=== PATIENT | male | born 1935 | race Caucasian/White ===

== ENCOUNTER 2023-01-19 09:14 | Emergency (ER) | payer MEDICARE, OTHER, SELFPAY ==
[2023-01-19 09:19] VITALS: BP 160/87; PULSE 87; RESP 20; TEMP 36.4; O2SAT 99; BMI 27.4
[2023-01-19] MEDS: LIDOCAINE HCL 1% PF 50 MG/5 ML VIAL INJ (09:35)
--- NOTE | 2023-01-19 09:42 | ED.SKABFB1 ---
HPI - Skin/Abscess/Foreign Bdy General Chief complaint: Skin/Abscess/Foreign Body Stated complaint: UPPER EXTREMITY INJURY LEFT INDEX FINGER Time Seen by Provider: 01/19/23 09:17 Source: patient Mode of arrival: walk-in Limitations: no limitations History of Present Illness HPI narrative: 87-year-old male presents for a finger laceration. He actually cut his left index finger on a razor blade while he was cutting up cardboard boxes. No other injury was sustained. He is on Eliquis. There was some bleeding that was controlled with pressure. This happened just before coming into the emergency department. Related Data Home Medications Medication Instructions Recorded Confirmed apixaban 5 mg tablet (Eliquis) 5 mg PO BID 01/19/23 01/19/23 polysaccharide iron complex 150 mg 150 mg PO DAILY 01/19/23 01/19/23 iron capsule (iFerex 150) Allergies Allergy/AdvReac Type Severity Reaction Status Date / Time No Known Drug Allergies Allergy Verified 01/19/23 09:19 Review of Systems ROS Narrative A ten point review of systems is negative except as noted above. PFSH PFSH Social History Smoking status: Former smoker Exam Narrative Exam Narrative: Nurses note and vital signs reviewed and patient is not hypoxic. General: The patient appears well and in no apparent distress. Patient is resting comfortably on cart. Skin: Warm, dry, no pallor noted. There is no rash noted. Head: Normocephalic, atraumatic Eye: Normal conjunctiva, no drainage Ears, Nose, Mouth, and Throat: oral mucosa is moist. Nares patent. Cardiovascular: normal rate Respiratory: Patient is in no distress, no accessory muscle use Back: non-tender GI: nontender Musculoskeletal: left index finger has a 1.5 cm linear laceration at the PIP joint on the radial side. DIP and PIP a full range of motion. No active bleeding or foreign body. No other wound present. Neurological: A&O, normal speech Psychiatric: Cooperative Constitutional Vital Signs, click to edit/add: Last Vital Signs Temp 97.5 F L 01/19/23 09:19 Pulse 87 01/19/23 09:19 Resp 20 01/19/23 09:19 BP 160/87 H 01/19/23 09:19 Pulse Ox 99 01/19/23 09:19 O2 Del Method Room Air 01/19/23 09:19 Course Vital Signs Vital signs: Vital Signs Temperature 97.5 F L 01/19/23 09:19 Pulse Rate 87 01/19/23 09:19 Respiratory Rate 20 01/19/23 09:19 Blood Pressure 160/87 H 01/19/23 09:19 Pulse Oximetry 99 01/19/23 09:19 Oxygen Delivery Method Room Air 01/19/23 09:19 Temperature 97.5 F L 01/19/23 09:19 Pulse Rate 87 01/19/23 09:19 Respiratory Rate 20 01/19/23 09:19 Blood Pressure 160/87 H 01/19/23 09:19 Pulse Oximetry 99 01/19/23 09:19 Oxygen Delivery Method Room Air 01/19/23 09:19 MDM - Skin/Abscess/Foreign Bdy MDM Narrative Medical decision making narrative: sutures are to be removed in seven days. Tetanus status is up-to-date. Finger splint applied and application checked by me and found to be appropriate, is neurovascularly intact. Treatment diagnosis and follow-up were discussed with the patient. Differential Diagnosis Differential diagnosis: Likely other (finger laceration) Discharge Plan Discharge Chief Complaint: Skin/Abscess/Foreign Body Clinical Impression: Finger laceration Patient Disposition: Home, Self-Care Time of Disposition Decision: 09:41 Condition: Good Mode of Transportation: Private Vehicle Prescriptions / Home Meds: No Action polysaccharide iron complex [iFerex 150] 150 mg iron capsule 150 mg PO DAILY Eliquis 5 mg tablet 5 mg PO BID Instructions: Finger Laceration (ED) Additional Instructions: sutures to be removed in seven days. Wear splint until they are removed. Stand Alone Forms: Portal Instructions Referrals: Jaison Purvis DO [Primary Care Provider] - 1 week Procedures ED Procedure Instructions Procedures Procedures: the following procedure was performed by me. Clinical infiltration was carried out with one percent lidocaine without epinephrine resulting in complete skin anesthesia. The area was prepped with Betadine ?3 and draped sterilely. It was explored for foreign bodies and then closed with three 5-0 ethilon sutures resulting in good skin reapproximatioon and no consultations.
== END 2023-01-19 09:57 | disposition home or self-care (01) ==
PROVIDERS: Emergency Provider Emergency Medicine; PCP Internal Medicine
DX: S61.211A Laceration without foreign body of left index finger without damage to nail, initial encounter (principal); W26.9XXA Contact with unspecified sharp object(s), initial encounter; Z79.01 Long term (current) use of anticoagulants; Z79.899 Other long term (current) drug therapy; Z87.891 Personal history of nicotine dependence
CPT/HCPCS: 12001; 99284

== ENCOUNTER 2023-02-09 09:21 | Outpatient (OUT) | payer MEDICARE, OTHER, SELFPAY ==
--- NOTE | 2023-02-09 09:27 | US_ITS ---
The [address] [address] Patient Name: ELISABETH BO MRN: [id number] date: 1935 Sex: M Assigned Patient Location: US Current Patient Location: Accession/Order Number: [id number] Exam Date: 02/09/2023 09:36 Report Date: 02/09/2023 13:06 At the request of: ANNI NUNO Procedure: US scrotum EXAMINATION: US scrotum HISTORY: Scrotal Mass N50.89 COMPARISON: No relevant comparison available. TECHNIQUE: High-resolution sonographic imaging of the scrotum and contents was performed. FINDINGS: The right testicle is normal in size, contour and homogeneous echotexture measuring 4.2 x 1.7 x 1.7 cm. Normal color and Doppler flow The right epididymis is significant for 0.7 cm area of anechoic echogenicity, cyst versus spermatocele. Moderate right hydrocele. Small right varicocele. The left testicle is normal in size, contour and homogeneous echotexture measuring 3.3 x 1.7 x 2.3 cm. Normal color and Doppler flow The left epididymis is normal in appearance. Small left hydrocele. Moderate left varicocele. US/US scrotum IMPRESSION: No evidence of testicular torsion 7 mm right epididymal cyst Moderate right and small left hydroceles Small right and moderate left varicoceles Electronically authenticated by: JOYCE YAN Date: 02/09/2023 13:06
== END 2023-02-09 09:22 | disposition home or self-care (01) ==
LOC: US 09:21
PROVIDERS: PCP Internal Medicine; Visit Provider Internal Medicine
DX: N50.89 Other specified disorders of the male genital organs (principal); N43.3 Hydrocele, unspecified; I86.1 Scrotal varices; N50.3 Cyst of epididymis
CPT/HCPCS: 76870

== ENCOUNTER 2023-03-25 08:34 | Outpatient (REF) | payer MEDICARE, OTHER, SELFPAY ==
[2023-03-25 08:58] LABS: SARS-CoV-2 Ag POSITIVE (NEGATIVE)
== END 2023-03-25 08:35 | disposition home or self-care (01) ==
LOC: LAB 08:34
PROVIDERS: PCP Internal Medicine; Visit Provider Internal Medicine
DX: Z20.822 Contact with and (suspected) exposure to COVID-19 (principal)
CPT/HCPCS: 87811

== ENCOUNTER 2023-09-01 14:54 | Outpatient (OUT) | payer MEDICARE, OTHER, SELFPAY ==
--- NOTE | 2023-09-01 15:16 | ECG_ITS ---
The [facility] Test Date: 2023-09-01 Pat Name: ELISABETH BO Department: Room: - Gender: Male [employer]: : 1935 Requested By: ANNI NUNO Order Number: [id number] Reading MD: ANNI NUNO Measurements Intervals [place] Rate: 69 P: 265 OK: 169 QRS: -85 QRSD: 175 T: 90 QT: 463 QTc: 496 Interpretive Statements ELECTRONIC ATRIAL PACEMAKER ELECTRONIC VENTRICULAR PACEMAKER ABNORMAL RHYTHM ECG Compared to ECG 05/30/2021 20:40:30 No significant changes Electronically Signed On 09-02-2023 6:52:47 EDT by ANNI NUNO
--- OUTSIDE RECORDS SUMMARY | 2023-09-01 15:17 | XMS_ITS | CCD ---
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 Obstetrics Teacher Name Role Phone YANIV, DR BLACKWOOD Primary Care Unavailable ARRIETA, DR JOLIE Mazariegos Admitting Unavailable ARRIETA, DR JOLIE Mazariegos Attending Unavailable ARRIETA, DR JOLIE Mazariegos Consulting Unavailable Jones, Manpreet Consulting Unavailable BALL, DR BLACKWOOD Primary Care Unavailable BALL, DR BLACKWOOD Admitting Unavailable BALL, DR BLACKWOOD Attending Unavailable BALL, DR BLACKWOOD Consulting Unavailable BALL, DR BLACKWOOD Primary Care Unavailable BALL, DR BLACKWOOD Admitting Unavailable BALL, DR BLACKWOOD Attending Unavailable BALL, DR BLACKWOOD Consulting Unavailable BALL, DR BLACKWOOD Admitting Unavailable BALL, DR BLACKWOOD Attending Unavailable BALL, DR BLACKWOOD Consulting Unavailable BALL, DR BLACKWOOD Primary Care Unavailable BALL, DR BLACKWOOD Primary Care Unavailable BALL, DR BLACKWOOD Admitting Unavailable BALL, DR BLACKWOOD Attending Unavailable BALL, DR BLACKWOOD Consulting Unavailable REQUEST, DR ESTRADA LISTED Consulting Unavaila ble BALL, DR BLACKWOOD Primary Care Unavailable REQUEST, DR ESTRADA LISTED Admitting Unavaila ble REQUEST, DR ESTRADA LISTED Attending Unavaila ble AMY MCCOLLUM Consulting Unavailable REQUEST, DR ESTRADA LISTED Admitting Unavaila ble BALL, DR BLACKWOOD Primary Care Unavailable REQUEST, DR ESTRADA LISTED Attending Unavaila ble REQUEST, DR ESTRADA LISTED Consulting Unavaila ble Ball, Jaison Unavailable STACEY JACOBS Attending Unavailable STACEY JACOBS Attending Unavailable Allergies Allergy Classification Reported Allergen(s) Allergy Type Date of Onset Reaction(s) Facility (1 source) dronedarone Drug Allergy 01-15-20 13 [facility] (2 sources) Morphine Drug Allergy 01-15-20 13 Vomiting [facility] (2 sources) Penicillins Drug allergy (disorder) 01-15-20 13 Hives [facility] (1 source) Sulfonamides (Antibiotic) Drug allergy (disorder) 01-15-20 13 [facility] (8 sources) Ciprofloxacin Drug Allergy 09-19-19 15 Unknown, Unknown Reaction [facility] (8 sources) dronedarone Drug Allergy 08-02-19 24 Unknown, Gastrointestinal Upset [facility] (6 sources) Morphine Drug Allergy Unknown [place] Other (3 sources) Penicillin Drug Allergy Unknown [place] Other (1 source) Morphine Drug Allergy Unknown [place] Other (4 sources) Substance with penicillin structure and antibacterial mechanism of action (substance) Drug allergy 09-19-19 15 Unknown [place] Other (4 sources) Substance with sulfonamide structure and antibacterial mechanism of action (substance) Drug allergy 09-19-19 15 Unknown [place] Other (1 source) Sulfonamides (Antibiotic) Allergy to substance 08-02-19 Gastrointestinal Upset [facility] Medications Current Medications Medication Drug Class(es) Dates Sig (Normalized) Sig (Original) apixaban 5 mg oral tablet (9 sources) Factor Xa Inhibitor Start: 08-02-2023 take 5 mg by mouth once daily Apixaban Active 5 MG PO Daily August 02, 2023 12:00am Start: 04-01-2020 End: 04-02-2020 take 1 tablet by mouth twice daily Apixaban (Eliquis) 5 mg Tablet Discontinued 5 MG PO Twice daily April 01, 2020 1:00am April 02, 2020 11:56am Eliquis 5 MG Ora lly Active atorvastatin 10 mg oral tablet (8 sources) HMG-CoA Reductase Inhibitor Start: 04-01-2020 take 10 mg by mouth once daily Atorvastatin Active 10 MG PO Daily April 01, 2020 1:00am 24 hr dilTIAZem hydrochloride 180 mg extended release oral capsule (10 sources) Calcium Channel Hafsa Start: 04-02-2020 End: 08-02-2023 take 180 mg by mouth once daily Diltiazem Hcl Active 180 MG PO Daily August 02, 2023 12:00am Start: 04-01-2020 End: 04-02-2020 take 1 capsule by mouth once daily Diltiazem Hcl (Dilt-Xr) 120 mg Capsule,Ext.Rel 24h Degradable Discontinued 120 MG PO Daily April 01, 2020 1:00am April 02, 2020 11:56am doxycycline hyclate 100 mg oral capsule (1 source) Tetracycline-class Drug Start: 05-18-2023 take 1 capsule by mouth every twelve hours Doxycycline Hyclate 100 MG 1 capsule Orally Twice a day for 5 days May, Active flecainide acetate 100 mg oral tablet (8 sources) Antiarrhythmic Start: 08-02-2023 take 50 mg by mouth every twelve hours Flecainide Active 50 MG PO Every 12 hours August 02, 2023 12:00am take 0.5 tablet by m outh every twelve hours Flecainide Acetate 100 MG 0.5 tablet Ora lly every 12 hrs Active gramicidin 0.025 mg/ml / neomycin 1.75 mg/ml / polymyxin b 10260 unt/ml ophthalmic solution (1 source) Aminoglycoside Antibacterial, Polymyxin-class Antibacterial Start: 05-18-2023 Xblgskyd-Zmrvcnqds-Mwszrvich n [id number] 1 drop into affected eye Ophthalmic every 4 hrs, while awake for 7 days May, Active hydroCHLOROthiazide 12.5 mg / lisinopril 10 mg oral tablet (10 sources) Thiazide Diuretic, Angiotensin Converting Enzyme Inhibitor Start: 08-02-2023 take 1 tablet by mouth once daily Lisinopril-Hydrochlorothiazide Active 1 TAB PO Daily August 02, 2023 12:00am FreeTextSi tablet Orally Once a day; Note: Source Status: Taking; Provider: Yaniv Blackwood ( ) Start: 04-01-2020 End: 08-02-2023 take 1 tablet by mouth once daily Lisinopril-Hydrochlorothiazide Discontin ued 1 TAB PO Daily April 01, 2020 1:00am August 02, 2023 8:16am take 1 tablet by wei th every twenty-four hours Lisinopril-hydroCHLOROthiazide 10-12.5 M G 1 tablet Orally Once a day Active ipratropium bromide 0.042 mg/actuat metered dose nasal spray (8 sources) Anticholinergic Start: 04-01-2020 Ipratropium Br omide Active 42 MCG INTRANASAL Twice daily April 01, 2020 1:00am Ipratropium Brom silvana Active omeprazole 20 mg delayed release oral capsule (15 sources) Proton Pump Inhibitor Start: 04-01-2020 take 20 mg by mouth once daily Omeprazole Active 20 MG PO Daily April 01, 2020 1:00am polysaccharide iron complex 150 mg oral capsule (8 sources) Start: 08-02-2023 Polysaccharide Iron Complex (Iferex 150) 150 mg iron capsule Active 150 MG PO Daily August 02, 2023 12:00am take 1 capsule by mouth every ot her day IFerex 150 150 MG TAKE 1 CAPSULE BY MOUTH EVERY OTHER DAY for 30 Active take 1 capsule by [facility] every twenty-four hours Ferrex 150 150 MG 1 capsule Orally Once a day Active sulfamethoxazole 800 mg / trimethoprim 160 mg oral tablet (1 source) Dihydrofolate Reductase Inhibitor Antibacterial, Sulfonamide Antimicrobial Start: 11-03-2022 take 1 tablet by mouth every twelve hours Bactrim DS 800-160 MG 1 tablet Orally Twice a day for 10 days Oct, Active Completed/Discontinued Medications Medication Drug Class(es) Dates Sig (Normalized) Sig (Original) Aloe Vera (1 source) Start: 04-01-2020 End: 08-02-2023 take 25 mg by mouth once daily Aloe Vera Discontinued 25 MG PO Daily April 01, 2020 1:00am August 02, 2023 8:15am amiodarone hydrochloride 200 mg oral tablet (1 source) Antiarrhythmic Start: 04-02-2020 End: 08-02-2023 take 200 mg by mouth twice daily Amiodarone Discontinued 200 MG PO Twice daily 60 30 April 02, 2020 1:00am August 02, 2023 8:15am ascorbic acid 500 mg oral tablet (1 source) Vitamin C Start: 04-01-2020 End: 08-02-2023 take 1 tablet by mouth once daily Ascorbic Acid (Vitamin C) (Vitamin C) 500 mg Tablet Discontinued 500 MG PO Daily April 01, 2020 1:00am August 02, 2023 8:16am Bilberry (1 source) Start: 04-01-2020 End: 08-02-2023 take 100 mg by mouth twice daily Bilberry Discontinued 100 MG PO Twice daily April 01, 2020 1:00am August 02, 2023 8:16am Garlic (1 source) Non-Standardized Food Allergenic Extract Start: 04-01-2020 End: 08-02-2023 take 1000 mg by mouth after mealtime Garlic Discontinued 1000 MG PO after meals April 01, 2020 1:00am August 02, 2023 8:16am 24 hr metoprolol succinate 50 mg extended release oral tablet (7 sources) beta-Adrenergic Hafsa take 1 tablet by mouth every twenty-four hours Metoprolol Succinate ER 50 MG 1 tablet Orally Once a day Not-Taking/PRN Problems Active Problems Problem Classification Problem Date Documented Da te Episodic/Chronic Abdominal pain (11 sources) Left lower quadrant pain; 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: [Epigastric pain] Onset: 05-30-2021 Episodic Calculus of urinary tract (15 sources) Calculus of kidney; 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: [Personal history of urinary calculi] Onset: 06-02-2021 Episodic Cardiac dysrhythmias (15 sources) Paroxysmal atrial fibrillation; 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: [Paroxysmal atrial fibrillation] Onset: 06-02-2021 Chronic Conduction disorders (1 source) Cardiac pacemaker in situ; 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: [Presence of cardiac pacemaker] 08-02-2023 Chronic Congestive heart failure; nonhypertensive (2 sources) Heart failure; 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: [Chronic diastolic (congestive) heart failure] 07-31-2023 Chronic Coronary atherosclerosis and other heart disease (1 source) Preinfarction syndrome; 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: [Unstable angina] 04-20-2023 Chronic Deficiency and other anemia (3 sources) Iron deficiency anemia secondary to blood loss (chronic); 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: [IRON DEFIC ANEMIA SEC BLD LOSS CHRN] Onset: 10-30-2020 Chronic Deficiency and other anemia (7 sources) Anemia due to chronic blood loss; 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: [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 Deficiency and other anemia (5 sources) Anemia, unspecified; 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: [ANEMIA UNSPECIFIED] Onset: 04-16-2021 Episodic Deficiency and other anemia (6 sources) Anemia; 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: [Anemia, unspecified] Episodic Disorders of lipid metabolism (13 sources) Pure hypercholesterolemia , unspecified; 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: [Familial hypercholesterolemia ] Onset: 10-30-2020 Chronic Esophageal disorders (4 sources) Gastro-esophageal reflux disease with esophagitis; 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: [Gastroesophageal reflux disease with esophagitis without hemorrhage] Chronic Essential hypertension (16 sources) Essential (primary) hypertension; 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: [Essential hypertension] Onset: 10-23-2020 Chronic Hyperplasia of prostate (9 sources) Lower urinary tract symptoms due to benign prostatic hypertrophy; 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: [Benign prostatic hyperplasia with lower urinary tract symptoms] Chronic Inflammation; infection of eye (except that caused by tuberculosis or sexually transmitteddisease) (8 sources) Allergic dermatitis of right eye, unspecified eyelid; 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: [Contact or allergic eyelid dermatitis] Episodic Inflammatory conditions of male genital organs (1 source) Epididymo-orchitis Episodic Nonspecific chest pain (1 source) Chest pain; 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: [Chest pain, unspecified] 04-20-2023 Episodic Occlusion or stenosis of precerebral arteries (2 sources) Carotid artery stenosis; 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: [Occlusion and stenosis of unspecified carotid artery] 07-31-2023 Chronic Other aftercare (1 source) Other aquatic centre manager (current) drug therapy; 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: [OTH HALF-WAY CURRENT DRUG THERAPY] Onset: 06-02-2021 Episodic Other circulatory disease (6 sources) Cardiovascular symptoms; 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: [Other specified symptoms and signs involving the circulatory and respiratory systems] Episodic Other circulatory disease (3 sources) Other specified symptoms and signs involving the circulatory and respiratory systems; 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: [Bilateral carotid bruits] Episodic Other connective tissue disease (7 sources) History of total knee arthroplasty; 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: [Presence of left artificial knee joint] Chronic Other connective tissue disease (1 source) Trigger finger, right ring finger Episodic Other diseases of veins and lymphatics (7 sources) Peripheral venous insufficiency; 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: [Venous insufficiency (chronic) (peripheral)] Episodic Other eye disorders (7 sources) Tear film insufficiency; 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: [Dry eye syndrome of bilateral lacrimal glands] Episodic Other male genital disorders (1 source) Other specified disorders of the male genital organs Episodic [place]ry-; endo-; and myocarditis; cardiomyopathy (except that caused by tuberculosis or sexually transmitted disease) (2 sources) Cardiomyopathy; 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: [Other cardiomyopathies] 07-31-2023 Chronic Screening and history of mental health and substance abuse codes (1 source) Personal history of nicotine dependence; 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: [PERSONAL HISTORY OF NICOTINE DEPEND] Onset: 06-02-2021 Episodic Skin and subcutaneous tissue infections (7 sources) Cellulitis of finger of left hand; 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: [Cellulitis of left finger] Episodic Spondylosis; intervertebral disc disorders; other back problems (9 sources) Cervical spondylosis; 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: [Spondylosis without myelopathy or radiculopathy, cervical region] 07-31-2023 Chronic Sprains and strains (1 source) Strain of muscle, fascia and tendon of other parts of biceps, left arm, initial encounter Episodic Past or Other Problems Problem Classification Problem Date Documented Da te Episodic/Chronic Esophageal disorders (5 sources) Esophageal disorders; 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: [Gastroesophageal reflux disease with esophagitis without hemorrhage] Unclassified (7 sources) Acute bilateral low back pain without sciatica; 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: [Acute bilateral low back pain without sciatica] Viral infection (1 source) COVID-19 Results Test Name Value Interpretation Reference Range Facil ity CBC W MANUAL DIFFon 05-30-19 ATYPICAL LYMPH # Normal [facility] Comment on above: Performed By: #### C BCMAN #### [facility] [address] [place] [address] Dr. Aubrie Sadler ATYPICAL LYMPH % Normal [facility] Comment on above: Performed By: #### C BCMAN #### [facility] [address] [place] [address] Dr. Aubrie Sadler BAND # 0.2 103/ul Normal 0.0-0.3 [facility] Comment on above: Performed By: #### C BCMAN #### [facility] [address] [place] [address] Dr. Aubrie Sadler BAND % 2 % Normal 0-5 [facility] Comment on above: Performed By: #### C BCMAN #### [facility] [address] [place] [address] Dr. Aubrie Sadler BASOM # 0.00 103/ul Normal 0.00-0.10 [facility] Comment on above: Performed By: #### C BCMAN #### [facility] [address] [address] [address] Aubrie Sadler BASOM % 0.0 % Critically low 0.2-2.0 [facility] Comment on above: Performed By: #### C BCMAN #### [facility] [address] [place] [address] Dr. Aubrie Sadler BLAST # Normal [facility] Comment on above: Performed By: #### C BCMAN #### [facility] [address] [place] [address] Dr. Aubrie Sadler BLAST % Normal [facility] Comment on above: Performed By: #### C BCMAN #### [facility] [address] [address] [address] Aubrie Sadler CORRECTED WBC Normal 4.0-11.0 [facility] Comment on above: Performed By: #### C ABIGAIL #### [facility] [address] [address] [address] Aubrie Sadler EOS # 0.00 103/ul Normal 0.00-0.70 [facility] Comment on above: Performed By: #### C ABIGAIL #### [facility] [address] [address] [address] Aubrie Sadler EOS% 0.0 % Critically low 0.9-7.0 [facility] Comment on above: Performed By: #### C ABIGAIL #### [facility] [address] [place] [address] Dr. Aubrie Sadler HCT 33.9 % Critically low 42.0-54.0 [facility] Comment on above: Performed By: #### C ABIGAIL #### [facility] [address] [place] [address] Dr. Aubrie Sadler HGB 11.2 g/dl Critically low 14.0-18.0 [facility] Comment on above: Performed By: #### C ABIGAIL #### [facility] [address] [place] [address] Dr. Aubrie Sadler LYMPHM # 0.61 103/ul Critically low 1.20-3.80 [facility] Comment on above: Performed By: #### C ABIGAIL #### [facility] [address] [address] [address] Aubrie Sadler LYMPHM% 7.0 % Critically low 20.5-60.0 [facility] Comment on above: Performed By: #### C ABIGAIL #### [facility] [address] [place] [address] Dr. Aubrie Sadler MCH 30.3 pg Normal 25.9-34.0 [facility] Comment on above: Performed By: #### C ABIGAIL #### [facility] [address] [address] [address] Aubrie Sadler MCHC 33.0 g/dl Normal 29.9-35.2 [facility] Comment on above: Performed By: #### C BCMAN #### [facility] [address] [place] [address] Dr. Aubrie Sadler MCV 91.6 fL Normal 80.0-94.0 [facility] Comment on above: Performed By: #### C BCMAN #### [facility] [address] [place] [address] Dr. Aubrie Sadler METAMYELOCYTE # Normal [facility] Comment on above: Performed By: #### C BCMAN #### [facility] [address] [place] [address] Dr. Aubrie Sadler METAMYELOCYTE % Normal [facility] Comment on above: Performed By: #### C BCBRYON #### [facility] [address] [place] [address] Dr. Aubrie Sadler MONOM# 0.52 103/ul Normal 0.30-0.80 [facility] Comment on above: Performed By: #### C BCMAN #### [facility] [address] [place] [address] Dr. Aubrie Sadler MONOM% 6.0 % Normal 1.7-12.0 [facility] Comment on above: Performed By: #### C ABIGAIL #### [facility] [address] [place] [address] Dr. Aubrie Sadler MPV 10.0 fL Normal 9.5-13.5 [facility] Comment on above: Performed By: #### C BCBRYON #### [facility] [address] [place] [address] Dr. Aubrie Sadler MYELOCYTE # Normal [facility] Comment on above: Performed By: #### C BCBRYON #### [facility] [address] [place] [address] Dr. Aubrie Sadler MYELOCYTE % Normal [facility] Comment on above: Performed By: #### C BCBRYON #### [facility] [address] [place] [address] Dr. Aubrie Sadler NRBC Normal [facility] Comment on above: Performed By: #### C BCBRYON #### [facility] [address] [place], [place] [address] Dr. Aubrie Sadler PLT 217 103/ul Normal 150-450 [facility] Comment on above: Performed By: #### C ABIGAIL #### [facility] [id number] Aubrie Sadler RBC 3.70 106/ul Critically low 4.70-6.10 [facility] Comment on above: Performed By: #### C ABIGAIL #### [facility] [address] [address] [address] Aubrie Sadler RDW 13.7 % Normal 11.0-15.0 [facility] Comment on above: Performed By: #### Rica HAYES #### [facility] [address] [address] [address] Aubrie Sadler SEG # 7.39 103/ul Critically high 1.40-6.50 [facility] Comment on above: Performed By: #### Rica HAYES #### [facility] [address] [address] [address] Aubrie Sadler SEG % 85.0 % Critically high 43.0-75.0 [facility] Comment on above: Performed By: #### C ABIGAIL #### [facility] [address] [address] [address] Aubrie Sadler WBC 8.7 103/ul Normal 4.0-11.0 [facility] Comment on above: Performed By: #### Rica HAYES #### [facility] [address] [place] [address] ABD/PELVIS WO CONon 05-30 CT ABD/PELVIS WO CON STUDY: CT abdomen pelvis noncontrast TECHNIQUE: Axial slices were obtained from the diaphragmatic domes through the pelvis without intravenous contrast. Coronal and sagittal reformats were provided. Dose reduction techniques were achieved by using automated exposure control and/or adjustment of mA and/or kV according to patient size and/or use of iterative reconstruction technique. COMPARISON: CT abdomen pelvis 10/24/2019 HISTORY: CALCULUS OF KIDNEY FINDINGS: Chest: The imaged lung bases are clear. No pleural or pericardial effusion. There is calcific coronary artery disease. Cardiac pacer electrodes are partially imaged in the heart. Liver: Normal contour and attenuation. Biliary: Status post cholecystectomy. Adrenals: Normal. Pancreas: No ductal dilatation or peripancreatic stranding. Spleen: Normal size. Renal: No hydronephrosis. 3 mm nonobstructing collecting system calcifications in the left mid pole and inferior pole. 4 cm renal cyst on the right. The ureters are normal in course and caliber. Calcifications scattered throughout the pelvis correspond to phleboliths, unchanged in number and orientation as compared to 10/24/2019. The urinary bladder is unremarkable. Hollow viscera: Normal caliber. Vascular: Scattered atheromatous vascular calcifications throughout the imaged aorta and its main branches. The IVC and portal vein demonstrate normal noncontrasted CT appearance. Mesentery/retroperit oneum: No free fluid, free air or focal stranding. No pathologically enlarged lymph nodes. Pelvic viscera: Within normal limits. MSK: Multilevel degenerative changes throughout the spine. Small fat-containing umbilical hernia. IMPRESSION: 1. Nonobstructing collecting system calcifications in the left kidney. No ureterolith. 2. Other chronic findings as above. Electronically authenticated by: MANPREET JONES Date: 2021-05-30 21:38 Normal [facility] ER URINE PROFILEon 2 Bilirubin Ql (U) Negative Normal NEGATIVE [facility] Comment on above: Performed By: #### E RUR ####[facility] [id number] [address]Dr. Aubrie Sadler Clarity (U) CLEAR Normal CLEAR [facility] Comment on above: Performed By: #### E RUR ####[facility] [id number] [address]Dr. Aubrie Sadler Color (U) YELLOW Normal YELLOW [facility] Comment on above: Performed By: #### E RUR ####[facility] [id number] [address]Dr. Aubrie HENLEYAHD A micrscopic examination will be performed if indicated. Normal [facility] Comment on above: Performed By: #### E RUR ####[facility] [id number] [address]Dr. Aubrie Sadler Glucose Ql (U) Negative Normal NEGATIVE [facility] Comment on above: Performed By: #### E RUR ####[facility] [id number] [place], [place] [address]Dr. Aubrie Sadler Hemoglobin Ql (U) Negative Normal NEGATIVE [facility] Comment on above: Performed By: #### E RUR ####[facility] [id number] [place], [place] [address]Dr. Aubrie Sadler Ketones Ql (U) TRACE Abnormal NEGATIVE [facility] Comment on above: Performed By: #### E RUR ####[facility] [address] [place], [place] [address]Dr. Aubrie Doroteo LEUKOCYTES Negative Normal NEGATIVE [facility] Comment on above: Performed By: #### E RUR ####[facility] [id number] [place], [place] [address]Dr. Aubrie Sadler Nitrite Ql (U) Negative Normal NEGATIVE [facility] Comment on above: Performed By: #### E RUR ####[facility] [id number] [address] [place], [place] [address]Dr. Aubrie Sadler pH (U) 5.0 [pH] Normal 5-9 [facility] Comment on above: Performed By: #### E RUR ####[facility] [address] [place], [place] [address]Dr. Aubrie Sadler SPEC GRAVITY 1.030 Abnormal 1.005-<=1.025 [facility] Comment on above: Performed By: #### E RUR ####[facility] [address] [place], [place] [address]Dr. Jasmyneling Doroteo UA PROTEIN Negative Normal NEGATIVE/ TRACE [facility] Comment on above: Performed By: #### E RUR ####[facility] [address] [place], [place] [address]Dr. Aubrie Sadler UR MICRO IND NOT INDICATED Normal [facility] Comment on above: Performed By: #### E RUR ####[facility] [address] [place], [place] [address]Dr. Aubrie Sadler Urobilinogen Qn (U) 0.2 {Julia'U}/dL Normal 0.2 - 1. 0 [facility] Comment on above: Performed By: #### E RUR ####[facility] [address] [address]Dr. Aubrie Sadler PROF 14(COMP METB)on 022 Albumin [Mass/Vol] 3.8 g/dL Normal 3.5-5.0 [facility] Comment on above: Performed By: #### C MP #### [facility] [address] [address] [address] Aubrie Sadler Albumin/Globulin [Mass ratio] 1.2 {ratio} Normal [facility] Comment on above: Performed By: #### C MP #### [facility] [address] [place] [address] Dr. Aubrie Sadler ALP [Catalytic activity/Vol] 73 U/L Normal 38-126 [facility] Comment on above: Performed By: #### C MP #### [facility] [address] [place] [address] Dr. Aubrie Sadler ALT [Catalytic activity/Vol] 20 U/L Critically low 21-72 [facility] Comment on above: Performed By: #### C MP #### [facility] [address] [place] [address] Dr. Aubrie Sadler Anion gap [Moles/Vol] 11.1 mmol/L Normal [facility] Comment on above: Performed By: #### C MP #### [facility] [address] [address] [address] Aubrie Sadler AST [Catalytic activity/Vol] 19 U/L Normal 17-59 [facility] Comment on above: Performed By: #### C MP #### [facility] [address] [place] [address] Dr. Aubrie Sadler Bilirubin [Mass/Vol] 1.5 mg/dL Critically high 0.2-1.3 [facility] Comment on above: Performed By: #### C MP #### [facility] [address] [place] [address] Dr. Aubrie Sadler Calcium [Mass/Vol] 8.9 mg/dL Normal 8.4-10.2 [facility] Comment on above: Performed By: #### C MP #### [facility] [address] [address] [address] Aubrie Sadler Chloride [Moles/Vol] 100 mmol/L Normal 98-107 [facility] Comment on above: Performed By: #### C MP #### [facility] [address] [address] [address] Aubrie Sadler CO2 [Moles/Vol] 28.8 mmol/L Normal 22.0-30.0 [facility] Comment on above: Performed By: #### C MP #### [facility] [address] [address] [address] Aubrie Sadler Creatinine [Mass/Vol] 1.72 mg/dL Critically high 0.66-1.25 [facility] Comment on above: Performed By: #### C MP #### [facility] [address] [address] [address] Aubrie Sadler EGFR-AF IVORIAN 46 mL/min/1.73m2 Critically low >=60 [facility] Comment on above: Performed By: #### C MP #### [facility] [address] [place] [address] Dr. Aubrie Sadler EGFR-NON AF IVORIAN 38 mL/min/1.73m2 Critically low >=60 [facility] Comment on above: Performed By: #### C MP #### [facility] [address] [address] [address] Aubrie Sadler Globulin (S) [Mass/Vol] 3.3 g/dL Normal [facility] Comment on above: Performed By: #### C MP #### [facility] [address] [address] [address] Aubrie Sadler Glucose [Mass/Vol] 125 mg/dL Critically high 74-106 [facility] Comment on above: Performed By: #### C MP #### [facility] [address] [address] [address] Aubrie Sadler Potassium [Moles/Vol] 3.9 mmol/L Normal 3.4-5.0 [facility] Comment on above: Performed By: #### C MP #### [facility] [address] [address] [address] Aubrie Sadler Protein [Mass/Vol] 7.1 g/dL Normal 6.1-8.2 [facility] Comment on above: Performed By: #### C MP #### [facility] [address] [address] [address] Aubrie Sadler Sodium [Moles/Vol] 136 mmol/L Critically low 137-145 [facility] Comment on above: Performed By: #### C MP #### [facility] [address] [place] [address] Dr. Aubrie Sadler Urea nitrogen [Mass/Vol] 27.0 mg/dL Critically high 9.0-20.0 [facility] Comment on above: Performed By: #### C MP #### [facility] [address] [place] [address] Dr. Aubrie Sadler Urea nitrogen/Creatinine [Mass ratio] 15.7 mg/mg Normal [facility] Comment on above: Performed By: #### C MP #### [facility] [address] [place] [address] Dr. Aubrie Sadler CBC AUTO DIFFon 04-16-2021 BASO # 0.0 103/ul Normal 0.0-0.1 [facility] Comment on above: Performed By: #### C BC ####[facility] [address] [address]Dr. Aubrie Sadler Basophils/100 WBC (Bld) 0.7 % Normal 0.2-2.0 [facility] Comment on above: Performed By: #### C BC ####[facility] [address] [address]Dr. Aubrie Sadler EO # 0.1 103/ul Normal 0.0-0.7 [facility] Comment on above: Performed By: #### C BC ####[facility] [address] [address]Dr. Aubrie Sadler Eosinophils/100 WBC (Bld) 2.4 % Normal 0.9-7.0 [facility] Comment on above: Performed By: #### C BC ####[facility] [address] [place], [place] [address]Dr. Aubrie Sadler Erythrocyte distribution width (RBC) [Ratio] 13.6 % Normal 11.0-15.0 [facility] Comment on above: Performed By: #### C BC ####[facility] [address] [place], [place] [address]Dr. Aubrie Sadler Hematocrit (Bld) [Volume fraction] 34.4 % Critically low 42.0-54.0 [facility] Comment on above: Performed By: #### C BC ####[facility] [address] [place], [place] [address]DrTadeo Sadler Hemoglobin (Bld) [Mass/Vol] 11.0 g/dL Critically low 14.0-18.0 [facility] Comment on above: Performed By: #### C BC ####[facility] [address] [place], [place] [address]Dr. Aubrie Sadler IG # 0.01 10e3/ul Normal 0.00-0.03 [facility] Comment on above: Performed By: #### C BC ####[facility] [address] [place], [place] [address]DrTadeo Sadler IG % 0.2 % Normal 0.0-0.5 [facility] Comment on above: Performed By: #### C BC ####[facility] [address] [place], [place] [address]DrTadeo Sadler LYMPH # 1.6 103/ul Normal 1.2-3.8 [facility] Comment on above: Performed By: #### C BC ####[facility] [address] [place], [place] [address]DrTadeo Sadler Lymphocytes/100 WBC (Bld) 29.3 % Normal 20.5-60.0 [facility] Comment on above: Performed By: #### C BC ####[facility] [address] [place], [place] [address]DrTadeo Sadler MANUAL DIFF REQ NO Normal [facility] Comment on above: Performed By: #### C BC ####[facility] [address] [id number]. Aubrie Sadler MCH (RBC) [Entitic mass] 29.9 pg Normal 25.9-34.0 [facility] Comment on above: Performed By: #### C BC ####[facility] [address] [address]DrTadeo Sadler MCHC (RBC) [Mass/Vol] 32.0 g/dL Normal 29.9-35.2 [facility] Comment on above: Performed By: #### C BC ####[facility] [address] [place], [place] [address]DrTadeo Sadler MCV (RBC) [Entitic vol] 93.5 fL Normal 80.0-94.0 [facility] Comment on above: Performed By: #### C BC ####[facility] [address] [place], [place] [address]DrTadeo Sadler MONO # 0.5 103/ul Normal 0.3-0.8 [facility] Comment on above: Performed By: #### C BC ####[facility] [address] [place], [place] [address]DrTadeo Sadler Monocytes/100 WBC (Bld) 9.5 % Normal 1.7-12.0 [facility] Comment on above: Performed By: #### C BC ####[facility] [address] [place], [place] [address]DrTadeo Sadler NEUT # 3.2 103/ul Normal 1.4-6.5 [facility] Comment on above: Performed By: #### C BC ####[facility] [address] [place], [place] [address]DrTadeo Sadler Neutrophils/100 WBC (Bld) 57.9 % Normal 43.0-75.0 [facility] Comment on above: Performed By: #### C BC ####[facility] [address] [place], [place] [address]DrTadeo Sadler Platelet mean volume (Bld) [Entitic vol] 10.0 fL Normal 9.5-13.5 [facility] Comment on above: Performed By: #### C BC ####[facility] [address] [address]Dr. Aubrie Sadler PLT 219 103/ul Normal 150-450 [facility] Comment on above: Performed By: #### C BC ####[facility] [address] [address]Dr. Aubrie Sadler RBC 3.68 106/ul Critically low 4.70-6.10 [facility] Comment on above: Performed By: #### C BC ####[facility] [address] [address]Dr. Aubrie Sadler WBC 5.5 103/ul Normal 4.0-11.0 [facility] Comment on above: Performed By: #### C BC ####[facility] [address] [address]Dr. Aubrie Sadler FERRITINon 04-16-2021 Ferritin [Mass/Vol] 32.0 ng/mL Normal 17.9-464.0 [facility] Comment on above: Performed By: #### F ERR #### [facility] [address] [place] [address] Dr. Aubrie Sadler OCC BLD IMMUNOASSAYon 2020 OCCULT BLOOD Negative Normal NEGATIVE [facility] Comment on above: Performed By: #### O FABRIZIO #### [facility] [address] [place] [address] Dr. Aubrie Sadler CBC AUTO DIFFon 01-23-2021 BASO # 0.0 103/ul Normal 0.0-0.1 [facility] Comment on above: Performed By: #### C BC #### [facility] [address] [place] [address] Dr. Aubrie Sadler Basophils/100 WBC (Bld) 0.7 % Normal 0.2-2.0 [facility] Comment on above: Performed By: #### C BC #### [facility] [address] [place] [address] Dr. Aubrie Sadler EO # 0.1 103/ul Normal 0.0-0.7 [facility] Comment on above: Performed By: #### C BC #### [facility] [address] [place] [address] Dr. Aubrie Sadler Eosinophils/100 WBC (Bld) 1.8 % Normal 0.9-7.0 [facility] Comment on above: Performed By: #### C BC #### [facility] [address] [place] [address] Dr. Aubrie Sadler Erythrocyte distribution width (RBC) [Ratio] 13.9 % Normal 11.0-15.0 [facility] Comment on above: Performed By: #### C BC #### [facility] [address] [place] [address] Dr. Aubrie Sadler Hematocrit (Bld) [Volume fraction] 34.6 % Critically low 42.0-54.0 [facility] Comment on above: Performed By: #### C BC #### [facility] [address] [place] [address] Dr. Aubrie Sadler Hemoglobin (Bld) [Mass/Vol] 11.4 g/dL Critically low 14.0-18.0 [facility] Comment on above: Performed By: #### C BC #### [facility] [address] [place] [address] Dr. Aubrie Sadler IG # 0.01 10e3/ul Normal 0.00-0.03 [facility] Comment on above: Performed By: #### C BC #### [facility] [address] [place] [address] Dr. Aubrie Sadler IG % 0.2 % Normal 0.0-0.5 [facility] Comment on above: Performed By: #### C BC #### [facility] [address] [place] [address] Dr. Aubrie Sadler LYMPH # 1.8 103/ul Normal 1.2-3.8 [facility] Comment on above: Performed By: #### C BC #### [facility] [address] [place] [address] Dr. Aubrie Sadler Lymphocytes/100 WBC (Bld) 31.4 % Normal 20.5-60.0 [facility] Comment on above: Performed By: #### C BC #### [facility] [address] [place] [address] Dr. Aubrie Sadler MANUAL DIFF REQ NO Normal [facility] Comment on above: Performed By: #### C BC #### [facility] [address] [place] [address] Dr. Aubrie Sadler MCH (RBC) [Entitic mass] 30.5 pg Normal 25.9-34.0 [facility] Comment on above: Performed By: #### C BC #### [facility] [address] [place] [address] Dr. Aubrie Sadler MCHC (RBC) [Mass/Vol] 32.9 g/dL Normal 29.9-35.2 [facility] Comment on above: Performed By: #### C BC #### [facility] [address] [place] [address] Dr. Aubrie Sadler MCV (RBC) [Entitic vol] 92.5 fL Normal 80.0-94.0 [facility] Comment on above: Performed By: #### C BC #### [facility] [address] [place] [address] Dr. Aubrie Sadler MONO # 0.6 103/ul Normal 0.3-0.8 [facility] Comment on above: Performed By: #### C BC #### [facility] [address] [place] [address] Dr. Aubrie Sadler Monocytes/100 WBC (Bld) 10.5 % Normal 1.7-12.0 [facility] Comment on above: Performed By: #### C BC #### [facility] [address] [place] [address] Dr. Aubrie Sadler NEUT # 3.1 103/ul Normal 1.4-6.5 [facility] Comment on above: Performed By: #### C BC #### [facility] [address] [place] [address] Dr. Aubrie Sadler Neutrophils/100 WBC (Bld) 55.4 % Normal 43.0-75.0 [facility] Comment on above: Performed By: #### C BC #### [facility] [address] [address] [address] Aubrie Sadler Platelet mean volume (Bld) [Entitic vol] 10.5 fL Normal 9.5-13.5 [facility] Comment on above: Performed By: #### C BC #### [facility] [address] [address] [address] Aubrie Sadler PLT 230 103/ul Normal 150-450 [facility] Comment on above: Performed By: #### C BC #### [facility] [address] [address] [address] Aubrie Sadler RBC 3.74 106/ul Critically low 4.70-6.10 [facility] Comment on above: Performed By: #### C BC #### [facility] [address] [address] [address] Aubrie Sadler WBC 5.6 103/ul Normal 4.0-11.0 [facility] Comment on above: Performed By: #### C BC #### [facility] [address] [address] [address] Aubrie Sadler FERRITINon 01-23-2021 Ferritin [Mass/Vol] 25.0 ng/mL Normal 17.9-464.0 [facility] Comment on above: Performed By: #### F OL, FETIBC, VITB12, FERR ####[facility] [address] [address]Dr. Aubrie Sadler FOLATEon 01-23-2021 FOLATE 16.70 ng/mL Normal >=2.76 [facility] Comment on above: Performed By: #### F OL, FETIBC, VITB12, FERR ####[facility] [address] [address]Dr. Aubrie Sadler IRON AND TIBCon 01-23-2021 % SATURATION 15.2 % Normal [facility] Comment on above: Performed By: #### F OL, FETIBC, VITB12, FERR ####[facility] [address] [id number]. Aubrie Sadler Iron [Mass/Vol] 54.0 ug/dL Normal 49.0-181.0 [facility] Comment on above: Performed By: #### F OL, FETIBC, VITB12, FERR ####[facility] [address] [id number]. Aubrie Sadler TIBC DIRECT 356.0 ug/dL Normal 261.0-497.0 [facility] Comment on above: Performed By: #### F OL, FETIBC, VITB12, FERR ####[facility] [address] [id number]. Aubrie Sadler VITAMIN B12on 01-23-2021 Cobalamin (Vitamin B12) [Mass/Vol] 380.0 pg/mL Normal 239.0-931.0 [facility] Comment on above: Performed By: #### F OL, FETIBC, VITB12, FERR ####[facility] [address] [address]Dr. Aubrie Sadler CBC AUTO DIFFon 10-23-2020 BASO # 0.1 103/ul Normal 0.0-0.1 [facility] Comment on above: Performed By: #### C BC #### [facility] [address] [id number] Amrcus Rachel Basophils/100 WBC (Bld) 1.0 % Normal 0.2-2.0 [facility] Comment on above: Performed By: #### C BC #### [facility] [address] [id number] Marcus Rachel EO # 0.1 103/ul Normal 0.0-0.7 [facility] Comment on above: Performed By: #### C BC #### [facility] [address] [id number] Marcus Rachel Eosinophils/100 WBC (Bld) 2.0 % Normal 0.9-7.0 [facility] Comment on above: Performed By: #### C BC #### [facility] Laboratory [address] [place], [place] [id number] Marcus Rachel Erythrocyte distribution width (RBC) [Ratio] 13.0 % Normal 11.0-15.0 [facility] Comment on above: Performed By: #### C BC #### [facility] [address] [place] [address] Marcus Ramos Hematocrit (Bld) [Volume fraction] 37.6 % Critically low 42.0-54.0 [facility] Comment on above: Performed By: #### C BC #### [facility] [address] [place] [address] Marcus Ramos Hemoglobin (Bld) [Mass/Vol] 12.3 g/dL Critically low 14.0-18.0 [facility] Comment on above: Performed By: #### C BC #### [facility] [address] [place] [address] Marcusbaldomero Ramos IG # 0.01 10e3/ul Normal 0.00-0.03 [facility] Comment on above: Performed By: #### C BC #### [facility] [address] [place] [address] Marcus Ramos IG % 0.2 % Normal 0.0-0.5 [facility] Comment on above: Performed By: #### C BC #### [facility] [address] [place] [address] Marcus Ramos LYMPH # 1.8 103/ul Normal 1.2-3.8 [facility] Comment on above: Performed By: #### C BC #### [facility] [address] [place] [address] Marcus Ramos Lymphocytes/100 WBC (Bld) 36.0 % Normal 20.5-60.0 [facility] Comment on above: Performed By: #### C BC #### [facility] [address] [place] [address] Marcus Ramos MANUAL DIFF REQ NO Normal [facility] Comment on above: Performed By: #### C BC #### [facility] [address] [place] [address] Marcus Ramos MCH (RBC) [Entitic mass] 30.4 pg Normal 25.9-34.0 [facility] Comment on above: Performed By: #### C BC #### [facility] [address] [place], [place] [id number] Marcus Ramos MCHC (RBC) [Mass/Vol] 32.7 g/dL Normal 29.9-35.2 [facility] Comment on above: Performed By: #### C BC #### [facility] [address] [place], [place] [phone] Marcusbaldomero Ramos MCV (RBC) [Entitic vol] 93.1 fL Normal 80.0-94.0 [facility] Comment on above: Performed By: #### C BC #### [facility] [address] [place] [address] Marcus Ramos MONO # 0.6 103/ul Normal 0.3-0.8 [facility] Comment on above: Performed By: #### C BC #### [facility] [address] [place] [address] Marcusbaldomero Farleyen Monocytes/100 WBC (Bld) 11.8 % Normal 1.7-12.0 [facility] Comment on above: Performed By: #### C BC #### [facility] [address] [place], [place] [phone] Marcus Ramos NEUT # 2.4 103/ul Normal 1.4-6.5 [facility] Comment on above: Performed By: #### C BC #### [facility] [address] [place], [place] [phone] Marcus Ramos Neutrophils/100 WBC (Bld) 49.0 % Normal 43.0-75.0 [facility] Comment on above: Performed By: #### C BC #### [facility] [address] [place], [place] [phone] Marcusbaldomero Ramos Platelet mean volume (Bld) [Entitic vol] 10.5 fL Normal 9.5-13.5 [facility] Comment on above: Performed By: #### C BC #### [facility] [address] [place], [place] [phone] Marcus Rachel PLT 233 103/ul Normal 150-450 [facility] Comment on above: Performed By: #### C BC #### [facility] [address] [place], [place] [address] Marcus Rachel RBC 4.04 106/ul Critically low 4.70-6.10 [facility] Comment on above: Performed By: #### C BC #### [facility] [address] [place], [place] [address] Marcus Rachel WBC 4.9 103/ul Normal 4.0-11.0 [facility] Comment on above: Performed By: #### C BC #### [facility] [address] [place], [place] [address] Marcus Rachel FERRITINon 10-23-2020 Ferritin [Mass/Vol] 21.0 ng/mL Normal 17.9-464.0 [facility] Comment on above: Performed By: #### F ERR #### [facility] [address] [place] [address] Marcus Rachel LIPID PROFILEon 10-23-2020 CHOL-HDL RATIO NORM SEE BELOW Normal The [facility] Comment on above: Result Comment: 3.3 - 4.4 LOW RISK 4.4 - 7.1 AVERAGE RISK 7.1 - 11.0 MODERATE RISK >11.0 HIGH RISK Performed By: #### B MP, LIPID #### [facility] [address] [place] [id number] Marcus Rachel Cholesterol [Mass/Vol] 131 mg/dL Normal <=200 [facility] Comment on above: Performed By: #### B MP, LIPID #### [facility] [address] [place], [place] [address] Marcus Rachel Cholesterol in HDL [Mass/Vol] 71 mg/dL Normal [facility] Comment on above: Performed By: #### B MP, LIPID #### [facility] [address] [place] [id number] Marcus Rachel Cholesterol in LDL [Mass/Vol] 54.4 mg/dL Normal [facility] Comment on above: Performed By: #### B MP, LIPID #### [facility] [address] [place] [id number] Marcus Rachel Cholesterol.total/Ch olesterol in HDL [Mass ratio] 1.8 {ratio} Normal [facility] Comment on above: Performed By: #### B MP, LIPID #### [facility] [address] [place], [place] [address] Marcus Rachel HDL NORMAL > or = 60 mg/dl - LOW CARDIOVASCULAR RISK <40 mg/dl - HIGH CARDIOVASCULAR RISK Normal [facility] Comment on above: Performed By: #### B MP, LIPID #### [facility] [address] [id number] Marcus Rachel LDL CALC NORMAL SEE BELOW Normal [facility] Comment on above: Result Comment: <100 mg/dl OPTIMAL 100 - 129 mg/dl NEAR OR ABOVE OPTIMAL 130 - 159 mg/dl BORDERLINE HIGH 160 - 189 mg/dl HIGH >190 mg/dl VERY HIGH Performed By: #### B MP, LIPID #### [facility] [address] [place] [address] Marcus Rachel Triglyceride [Mass/Vol] 28 mg/dL Normal <=150 [facility] Comment on above: Performed By: #### B MP, LIPID #### [facility] [address] [place], [place] [phone] Marcus Rachel VLDL CALC 5.6 mg/dL Normal [facility] Comment on above: Performed By: #### B MP, LIPID #### [facility] [address] [place], [place] [phone] Marcus Rachel PROF CHEM 8 (BAS METB)on Anion gap [Moles/Vol] 9.7 mmol/L Normal [facility] Comment on above: Performed By: #### B MP, LIPID #### [facility] [address] [place], [place] [phone] Marcus Rachel Calcium [Mass/Vol] 8.9 mg/dL Normal 8.4-10.2 The [facility] Comment on above: Performed By: #### B MP, LIPID #### [facility] [address] [place], [place] [phone] Marcus Rachel Chloride [Moles/Vol] 104 mmol/L Normal 98-107 The [facility] Comment on above: Performed By: #### B MP, LIPID #### [facility] [address] [address] Marcus Rachel CO2 [Moles/Vol] 30.9 mmol/L Critically high 22.0-30.0 [facility] Comment on above: Performed By: #### B MP, LIPID #### [facility] [address] [address] Marcus Rachel Creatinine [Mass/Vol] 1.19 mg/dL Normal 0.66-1.25 The [facility] Comment on above: Performed By: #### B MP, LIPID #### [facility] [address] [address] Marcus Rachel EGFR-AF IVORIAN >60 Normal >=60 [facility] Comment on above: Performed By: #### B MP, LIPID #### [facility] [address] [address] Marcus Rachel EGFR-NON AF IVORIAN 58 mL/min/1.73m2 Critically low >=60 The [facility] Comment on above: Performed By: #### B MP, LIPID #### [facility] [address] [address] Marcus Rachel Glucose [Mass/Vol] 93 mg/dL Normal 74-106 The [facility] Comment on above: Performed By: #### B MP, LIPID #### [facility] [address] [address] Marcus Rachel Potassium [Moles/Vol] 3.6 mmol/L Normal 3.4-5.0 The [facility] Comment on above: Performed By: #### B MP, LIPID #### [facility] [address] [address] Marcus Rachel Sodium [Moles/Vol] 141 mmol/L Normal 137-145 The [facility] Comment on above: Performed By: #### B MP, LIPID #### [facility] [address] [address] Marcus Rachel Urea nitrogen [Mass/Vol] 14.0 mg/dL Normal 9.0-20.0 [facility] Comment on above: Performed By: #### B MP, LIPID #### [facility] [address] [place], [place] [address] Marcus Ramos Urea nitrogen/Creatinine [Mass ratio] 11.8 mg/mg Normal [facility] Comment on above: Performed By: #### B MP, LIPID #### [facility] [address] [place], [place] [address] Marcus Ramos Vital Signs Date Time Vital Sign Value Performing Clinician Facility 08-02-2023 11:18-0400 Body height 175.26 cm [facility] 08-02-2023 11:18-0400 Body mass index (BMI) [Ratio] 24.7 kg/m2 [facility] 08-02-2023 11:18-0400 Body weight 75.97 kg [facility] 08-02-2023 11:18-0400 Diastolic blood pressure 67 mm[Hg] [facility] 08-02-2023 11:18-0400 Heart rate 77 /min [facility] 08-02-2023 11:18-0400 Respiratory rate 12 /min [facility] 08-02-2023 11:18-0400 Systolic blood pressure 130 mm[Hg] [facility] 05-18-2023 09:15-0500 Body height 175.26 cm Jaison Ball Other [facility] 05-18-2023 09:15-0500 Body mass index (BMI) [Ratio] 25.25 kg/m2 Jaison Ball Other [facility] Other 05-18-2023 09:15-0500 Body weight 77.57 kg Jaison Ball Other [facility] Other 05-18-2023 09:15-0500 Body weight 77.56 kg [facility] 05-18-2023 09:15-0500 Diastolic blood pressure 76 mm[Hg] Jaison Ball Other [facility] 05-18-2023 09:15-0500 Respiratory rate 12 /min Jaison Ball Other [facility] Other 05-18-2023 09:15-0500 Systolic blood pressure 142 mm[Hg] Jaison Ball Other [facility] 02-01-2023 11:00-0400 Body height 175.26 cm Jaison Ball Other [facility] Other 02-01-2023 11:00-0400 Body mass index (BMI) [Ratio] 25.13 kg/m2 Jaison Ball Other [facility] Other 02-01-2023 11:00-0400 Body weight 77.2 kg Jaison Ball Other [facility] Other 02-01-2023 11:00-0400 Diastolic blood pressure 67 mm[Hg] Jaison Ball Other [facility] Other 02-01-2023 11:00-0400 Respiratory rate 12 /min Jaison Ball Other [facility] Other 02-01-2023 11:00-0400 Systolic blood pressure 122 mm[Hg] Jaison Ball Other [facility] Other 11-03-2022 13:45-0400 Body height 175.26 cm Jaison Ball Other [facility] Other 11-03-2022 13:45-0400 Body mass index (BMI) [Ratio] 25.1 kg/m2 Jaison Ball Other [facility] Other 11-03-2022 13:45-0400 Body weight 77.11 kg Jaison Ball Other [facility] Other 11-03-2022 13:45-0400 Diastolic blood pressure 56 mm[Hg] Jaison Ball Other [facility] Other 11-03-2022 13:45-0400 Respiratory rate 12 /min Jaison Ball Other [facility] Other 11-03-2022 13:45-0400 Systolic blood pressure 108 mm[Hg] Jaison Ball Other [facility] Other 08-03-2022 12:00-0400 Body height 175.26 cm Jaison Ball Other [facility] Other 08-03-2022 12:00-0400 Body mass index (BMI) [Ratio] 25.04 kg/m2 Jaison Ball Other [facility] Other 08-03-2022 12:00-0400 Body weight 76.93 kg Jaison Ball Other [facility] Other 08-03-2022 12:00-0400 Diastolic blood pressure 66 mm[Hg] Jaison Ball Other [facility] Other 08-03-2022 12:00-0400 Respiratory rate 12 /min Jaison Ball Other [facility] Other 08-03-2022 12:00-0400 Systolic blood pressure 114 mm[Hg] Jaison Ball Other [facility] Other 06-24-2022 11:00-0500 Body height 175.26 cm Jaison Ball Other [facility] Other 06-24-2022 11:00-0500 Body mass index (BMI) [Ratio] 25.28 kg/m2 Jaison Ball Other [facility] Other 06-24-2022 11:00-0500 Body weight 77.66 kg Jaison Ball Other [facility] Other 06-24-2022 11:00-0500 Diastolic blood pressure 70 mm[Hg] Jaison Ball Other [facility] Other 06-24-2022 11:00-0500 Respiratory rate 12 /min Jaison Ball Other [facility] Other 06-24-2022 11:00-0500 Systolic blood pressure 118 mm[Hg] Jaison Ball Other [facility] Other Encounters Encounter Date Encounter Type Care Provider Facility Start: 08-02-2023 End: 08-02-2023 ambulatory [facility] Work Phone: Start: 08-02-2023 End: 08-02-2023 Patient encounter procedure [facility] Work Phone: Start: 06-27-2023 End: 06-27-2023 ambulatory STACEY A PETITTI Not Available Start: 05-26-2023 End: 05-26-2023 ambulatory STACEY A PETITTI Not Available Start: 05-18-2023 End: 05-18-2023 ambulatory Jaison Ball Other [facility] Other Start: 05-18-2023 Office outpatient vi sit 15 minutes Jaison Ball [facility] Start: 05-18-2023 End: 05-18-2023 Patient encounter procedure [facility] Work Phone: Start: 03-25-2023 End: 03-25-2023 ambulatory Jaison Ball Other [facility] Other Start: 03-25-2023 Office outpatient vi sit 15 minutes Jaison Ball [facility] Start: 02-10-2023 End: 02-10-2023 ambulatory Jaison Ball Other [facility] Other Start: 02-10-2023 Telephone encounter Jaison Ball [facility] Start: 02-01-2023 End: 02-01-2023 ambulatory Jaison Nuno Other [facility] Other Start: 02-01-2023 Patient encounter procedure Jaison Nuno [facility] Start: 11-03-2022 End: 11-03-2022 ambulatory Jaison Nuno Other [facility] Other Start: 11-03-2022 Office outpatient vi sit 15 minutes Jaison Nuno [facility] Start: 08-03-2022 End: 08-03-2022 ambulatory Jaison Nuno Other [facility] Other Start: 08-03-2022 Office outpatient vi sit 25 minutes Jaison Nuno [facility] Start: 06-24-2022 End: 06-24-2022 ambulatory Jaison Nuno Other [facility] Other Start: 06-24-2022 Office outpatient vi sit 15 minutes Jaison Nuno [facility] Start: 05-30-2021 End: 05-31-[address] JAISON NUNO Facility:[facility] Start: 04-16-2021 End: 04-17-[address] JAISON NUNO Facility:[facility] Start: 01-28-2021 End: 01-28-[address] JAISON NUNO Facility:[facility] Start: 01-23-2021 End: 01-24-[address] JAISON NUNO Facility:[facility] Start: 10-23-2020 End: 10-24-[address] JAISON NUNO Facility:[facility] Start: 07-08-2020 End: 07-09-[address] ESTRADA LISTED REQUEST Facility:[facility] Start: 06-10-2020 End: 06-11-2020 ambulatory AMY MCCOLLUM Facility:[facility] Immunizations Immunization Date Immunization Notes Care Provider Fa marilia 02-01-2023 influenza virus vaccine, unspecified formulation [facility] 02-01-2023 influenza, high dose seasonal, preservative-free Jaison Nuno Other [facility] Other 02-27-2022 COVID-19 Pfizer (Pediatric) Jaison Nuno Other [facility] 01-26-2022 influenza virus vaccine, split virus (incl. purified surface antigen) Jaison uNno Other [facility] Other 01-26-2022 influenza virus vaccine, unspecified formulation [facility] 10-29-2021 pneumococcal polysaccharide vaccine, 23 valent Jaison Nuno Other [facility] 02-17-2021 influenza virus vaccine, split virus (incl. purified surface antigen) Jaison Nuno Other [place] [facility] Other 02-17-2021 influenza virus vaccine, unspecified formulation [facility] 02-06-2020 influenza virus vaccine, split virus (incl. purified surface antigen) Jaison Nuno Other [facility] Other 02-06-2020 influenza virus vaccine, unspecified formulation [facility] 02-21-2019 influenza virus vaccine, split virus (incl. purified surface antigen) Jaison Nuno Other [place] [facility] Other 02-21-2019 influenza virus vaccine, unspecified formulation [facility] 02-10-2018 influenza virus vaccine, split virus (incl. purified surface antigen) Jaison Nuno Other [facility] Other 02-10-2018 influenza virus vaccine, unspecified formulation [facility] 03-02-2017 influenza virus vaccine, split virus (incl. purified surface antigen) Jaison Nuno Other [place] [facility] Other 03-02-2017 influenza virus vaccine, unspecified formulation [facility] 02-20-2016 pneumococcal conjuga te vaccine, 13 valent Jaison Nuno Other [facility] 02-12-2016 influenza virus vaccine, split virus (incl. purified surface antigen) Jaison Yaniv Other [facility] Other 02-12-2016 influenza virus vaccine, unspecified formulation [facility] 02-28-2015 influenza virus vaccine, split virus (incl. purified surface antigen) Jaison Nuno Other [facility] Other 02-28-2015 influenza virus vaccine, unspecified formulation [facility] 02-05-2014 tetanus and diphther ia toxoids, adsorbed, preservative free, for adult use (5 Lf of tetanus toxoid and 2 Lf of diphtheria toxoid) Jaison Nuno Other [facility] 01-24-2013 tetanus and diphther ia toxoids, adsorbed, preservative free, for adult use (5 Lf of tetanus toxoid and 2 Lf of diphtheria toxoid) Jaison Nuno Other [facility] 04-13-1995 pneumococcal polysaccharide vaccine, 23 valent Jaison Nuno Other [facility] Payers Date Payer Category Payer Unknown [id number] 1959 Medicare [id number] 1959 Self-pay 1959 Unknown [id number] 1935 Unknown [id number] 2.16.84 [id number] 1935 Unknown [id number] 2.16.84 [id number] 1935 Unknown [id number] 2.16.84 [id number] 1935 Unknown [id number] 2.16.84 [id number] 1935 Unknown [id number] 2.16.84 [id number] 1935 Unknown [id number] 2.16.84 [id number] 1935 Unknown [id number] 2.16.84 [id number] Unknown [id number] 2.16.84 [id number] Unknown [id number] 2.16.84 [id number] Social History Date Type Detail Facility Unknown if ever smoked [facility] Other Sex Assigned At Sex Assigned At Bir th [facility] Other Start: 05-18-2023 Tobacco smoking status NHIS Ex-smoker (finding) [facility] Start: 1935 Sex Assigned At Male [facility] Evaluation note 05-18-2023 Note Date & Type Note Facility 05-18-2023 Evaluation note Encounter Date Diagnosis Assessment Notes May, 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 May, Trigger ring finger of right hand (ICD-10 - M65.341) Soak in warm water, Voltaren Gel. Discussed injection or surgery, which would require referral to Orthopedics [facility] Other Evaluation note 03-25-2023 Note Date & Type Note Facility 03-25-2023 Evaluation note Encounter Date Diagnosis Assessment Notes Mar, COVID-19 (ICD-10 - U07.1) Instructed to use Robitussin or Mucinex for cough, saline or Flonase NS for congestion, Tylenol for pain and fever. Self isolate at home. - Cannot work - avoid contact with others - avoid pets - wipe counters, door knobs if touched - if can't avoid leaving home, must wear mask to protect others - need to stay isolated for 10 days from onset of symptoms - to discontinue isolation must be 5 days AND must be without fever for 24 hours AND symptoms must be improving. Always wear a mask in public places for complete 10 days Mar, Paroxysmal atrial fibrillation (ICD-10 - I48.0) Not prescribing Paxlovid due to having to stop Flecainide and CCB, which in the past has resulted in AF. [facility] Other Evaluation note 02-01-2023 Note Date & Type Note Facility 02-01-2023 Evaluation note Encounter Date Diagnosis Assessment Notes Jan, Medicare annual wellness visit, subsequent (ICD-10 - Z00.00) Personalized health advice was given to the beneficiary including a written plan for screenings discussed and provided. Advanced care planning reviewed and/or information given as requested. Additional counseling was provided here today in regards to, [ ]. The above visit was performed by [ ], under direct supervision of [ ]. Document reviewed and amended by provider signed below. Jan, Paroxysmal atrial fibrillation (ICD-10 - I48.0) This patient is in NSR or rate controlled. This patient is anticoagulated to prevent thromboembolic events. 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 No bleeding complications Jan, Primary hypertension (ICD-10 - I10) This patient is instructed to consume a healthy, low-fat, low-salt diet. They are also encouraged to continue exercise to achieve/maintain a normal BMI. Jan, Hyperlipidemia type II (ICD-10 - E78.01) Instructed on diet and exercise with continued statin therapy.Discussed the beneficial effects of lowering cholesterol in reducing the risk for cerebrovascular and cardiovascular disease. Jan, Bilateral carotid bruits (ICD-10 - R09.89) Continue primary prevention. f/u Vascular surgery Jan, Benign prostatic hyperplasia with lower urinary tract symptoms (ICD-10 - N40.1) Symptoms tolerable. f/u Jan, Gastroesophageal reflux disease with esophagitis without hemorrhage (ICD-10 - K21.00) Diet instructions: Smaller portions, avoid eating and laying flat, avoid eating or drinking prior to bedtime. Weight loss. 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 Suspect spermatocele/veri cocele US ordered [facility] Other Evaluation note 11-03-2022 Note Date & Type Note Facility 11-03-2022 Evaluation note Encounter Date Diagnosis Assessment Notes Oct, Epididymoorchitis (ICD-10 - N45.3) No s/s torsion or testicular mass No s/s hernia Avoid strenuous activity. Supportive garments. Push fluids Begin antibiotics. Oct, Left nephrolithiasis (ICD-10 - N20.0) Push fluids Avoid dark pop. f/u Urology [facility] Other Evaluation note 08-03-2022 Note Date & Type Note Facility 08-03-2022 Evaluation note Encounter Date Diagnosis Assessment Notes Jul, Paroxysmal atrial fibrillation (ICD-10 - I48.0) This patient is in NSR or rate controlled. This patient is anticoagulated to prevent thromboembolic events. 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 Jul, Primary hypertension (ICD-10 - I10) This patient is instructed to consume a healthy, low-fat, low-salt diet. They are also encouraged to continue exercise to achieve/maintain a normal BMI. Jul, Hyperlipidemia type II (ICD-10 - E78.01) Diet and exercise with continued statin therapy. Jul, Bilateral carotid bruits (ICD-10 - R09.89) Continue primary prevention w/ antiplatelet, AC and statin. f/u Vascular surgery ER for acute neurologic deficits Jul, Benign prostatic hyperplasia with lower urinary tract symptoms (ICD-10 - N40.1) Stopped Finasteride by . Passed one blood clot w/o gross hematuria. Denies dysuria or polyuria. Push fluids, f/u Urology if recurs Jul, Gastroesophageal reflux disease with esophagitis without hemorrhage (ICD-10 - K21.00) Diet instructions: Smaller portions, avoid eating and laying flat, avoid eating or drinking prior to bedtime. Weight loss. Jul, Anemia due to blood loss, chronic (ICD-10 - D50.0) Normal Fe, B12, FA w/ mild anemia. Negative hemoccult [facility] due next month, will await results [facility] Other Evaluation note 06-24-2022 Note Date & Type Note Facility 06-24-2022 Evaluation note Encounter Date Diagnosis Assessment Notes Jun, Strain of biceps tendon, left, initial encounter (ICD-10 - S46.212A) Ice, heat and Tylenol. Voltaren Gel as needed. Elbow sleeve. Discussed PT/OT and referral to Orthopedics but don't feel needed Jun, Primary hypertension (ICD-10 - I10) This patient is instructed to consume a healthy, low-fat, low-salt diet. They are also encouraged to continue exercise to achieve/maintain a normal BMI. Jun, Paroxysmal atrial fibrillation (ICD-10 - I48.0) This patient is in NSR. This patient is anticoagulated to prevent thromboembolic events. 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 Lumbar spondylosis acute Nonischemic cardiomyopathy a [facility] Work Phone: History general Narrative - Reported Note Date & Type Note Facility History general Narrative - Reported Type Medical History Hypertension Medical History Contact dermatitis of right eyel id Medical History Dry eye syndrome, bilateral Medical History History of nephrolithiasis Medical History Acute bilateral low back pain without sciatica Medical History Acute paronychia of finger, left Medical History Abdominal pain, epigastric Medical History Bilateral carotid bruits Medical History Chronic venous insufficiency Medical History Benign prostatic hyp erplasia with lower urinary tract symptoms Medical History Gastroesophageal ref lux disease with esophagitis without hemorrhage Medical History Hyperlipidemia type II Medical History Anemia due to blood loss, chroni c Medical History Cervical spondylosis Medical History Anemia Surgical History LTKA Surgical History RTKA Surgical History gallbladder Surgical History hernia Surgical History wrist surgery x 3 Surgical History back surgery x 2 Surgical History TURP Surgical History COLONOSCOPY 2019 Surgical History UPPR GI ENDOSCOPY, DIAGNOSIS 20 20 Surgical History INSERTION OF HEART PACEMAKER 20 20 Hospitalization History see above [facility] Other Summary Purpose Family History Relationship Condition Age at Onset Recorded Date/T woo father Myocardial infarction Unknown Unknown natural son Myocardial infarction Unknown Not Specified Unknown Advance Directives Advance Directive Response Recorded Date/ Time Advance Directives No March 11:45am Chief Complaint and Reason for Visit Chief Complaint Bump On Bridge Of No se 6 month follow up Reason for Visit Atrial fibrillation Carotid stenosis Elevated cholesterol Heart failure with improved ejection fraction (HFimpEF) Lumbar spondylosis Nonischemic cardiomyopathy Additional Source Comments (unrecognized sect ion and content) No Status Records FoundNo Status Records Found INFORMATION SOURCE (unrecogn ized section and content) DATE CREATED AUTHOR 06/03/2021 [facility] DATE CREATED AUTHOR AUTHOR'S ORGANNELA ATION 06/27/2023 [facility] EPIC REASON FOR VISIT (unrecogniz ed section and content) PAIN IN FOREARM6 MONTH FOLLO W UPSwelling/Pain in TesticleMWEUS -[phone] phone call only, hoarsenessBump on bridge of nose Care Teams (unrecognized sec tion and content) Team Status: Active Member Role Status Dates Jaison Nuno DO Primary Care Provider Active Team Status: Inactive Member Role Status Dates Jaison Nuno DO Attending Provider Active Sta rt: May 18, 2023 End: May 18, 2023 Team Status: Inactive Member Role Status Dates Jaison Nuno DO Primary Care Provide r, Attending Provider Active Start: August 02, 2023 End: August 02, 2023 Goals (unrecognized section and content) Goals may be documented in a n alternate section FOR RECORDS PERTAINING TO PATIENTS WHO ARE OR HAVE BEEN ENROLLED IN A CHEMICAL DEPENDENCY/SUBSTANCEABUSE PROGRAM, SOME INFORMATION MAY BE OMITTED. This clinical summary was aggregated from multiple sources. Caution should be exercised in using it in the provision of clinical care. This summary normalizes information from multiple sources, and as a consequence, information in this document may materially change the coding, format and clinical context of patient data. In addition, data may be omitted in some cases. CLINICAL DECISIONS SHOULD BE BASED ON THE PRIMARY CLINICAL RECORDS. [employer] provides no warranty or guarantee of the accuracy or completeness of information in this document.
== END 2023-09-01 14:55 | disposition home or self-care (01) ==
LOC: CARD 14:55
PROVIDERS: PCP Internal Medicine; Visit Provider Internal Medicine
DX: I48.0 Paroxysmal atrial fibrillation (principal)
CPT/HCPCS: 93005

== ENCOUNTER 2023-09-20 18:02 | Inpatient (IN) | payer MEDICARE, OTHER, SELFPAY ==
[2023-09-20] VITALS (21 sets, daily range): BP systolic 82–112; BP diastolic 44–60; PULSE 48–145; TEMP 36.7–36.9; O2SAT 95–99; BMI 26.5; BMI 26.4
--- NOTE | 2023-09-20 18:18 | ECG_ITS ---
The [facility] Test Date: 2023-09-20 Pat Name: ELISABETH BO Department: Room: - Gender: Male [employer] Operator: : 1935 Requested By: ANNI NUNO Order Number: [id number] Reading MD: ANNI NUNO Measurements Intervals [place] Rate: 107 P: -10415 FL: -[address] QRS: -75 QRSD: 164 T: 90 QT: 404 QTc: 466 Interpretive Statements 54137 Electronic ventricular pacemaker 9120 atypical ECG Compared to ECG 09/01/2023 15:25:27 Atrial-paced complex(es) or rhythm no longer present Electronically Signed On 09-20-2023 22:48:13 EDT by ANNI NUNO
--- NOTE | 2023-09-20 18:18 | CT_ITS ---
The [address] [address] Patient Name: ELISABETH BO MRN: [id number] date: 1935 Sex: M Assigned Patient Location: ER Current Patient Location: ER Accession/Order Number: [id number] Exam Date: 09/20/2023 18:35 Report Date: 09/20/2023 19:51 At the request of: VIKAS JOYA Procedure: CT cervical spine wo con EXAM: CT head/brain wo con, CT cervical spine wo con; [id number], [id number] REASON FOR EXAM: syncope COMPARISON: None. TECHNIQUE: Axial CT images of the head obtained without contrast. Following this, helical CT images of the cervical spine were obtained without contrast. Multiplanar reformats generated at the scanner. Dose reduction technique used: Automated exposure control and/or adjustment of the mA and/or kV according to patient size and/or use of iterative reconstruction technique. HEAD CT FINDINGS: Parenchyma: -Mild generalized cerebral volume loss. 0-mild bilateral basal ganglia calcification -No midline shift or mass effect. Basilar cisterns are patent. -No acute intracranial hemorrhage. No loss of cortical gilbert-white differentiation to indicate acute cortical infarct. - Mild/moderate multifocal and bilateral periventricular white matter predominant hypoattenuation, nonspecific though commonly seen in the setting of chronic microvascular ischemic disease. Extra-axial spaces: No extra-axial fluid collection or hemorrhage. Ventricles: Normal in size and symmetric. Paranasal sinuses: Visualized paranasal sinuses are clear. Mastoid air cells: Visualized mastoids are clear. Orbits: Visualized orbits are within normal limits. Osseous: No acute findings. Soft tissues: No acute abnormality. CERVICAL SPINE FINDINGS: Osseous: -No acute fracture or traumatic spondylolisthesis. -Severe spondylosis which is most notable at C3-C4 and from C5 through C7. -Calcified posterior disc herniation at C4-C5 resulting in severe spinal canal narrowing. -Retro odontoid soft tissue thickening with calcification which can be seen in the setting of CPPD arthropathy. There is mild resulting narrowing at the foramen magnum. -No suspicious osseous lesion. Paraspinous soft tissues: -No acute abnormality. Visualized lung apices: -Clear. -No pneumothorax within the [id number]. CT/CT cervical spine wo con IMPRESSION: 1. No acute intracranial abnormality. 2. No acute traumatic abnormality of the cervical spine. 3. Severe cervical spondylosis resulting in severe spinal canal narrowing at C4-C5. Electronically authenticated by: MALDONADO LEE Date: 09/20/2023 19:51
--- NOTE | 2023-09-20 18:18 | XR_ITS ---
The [address] [address] Patient Name: ELISABETH BO MRN: [id number] date: 1935 Sex: M Assigned Patient Location: ER Current Patient Location: ER Accession/Order Number: [id number] Exam Date: 09/20/2023 18:58 Report Date: 09/20/2023 19:37 At the request of: VIKAS JOYA Procedure: XR chest 1V EXAM: XR chest 1V at 1854 hours HISTORY: Syncope COMPARISON: 03/07/2020 TECHNIQUE: AP upright portable chest x-ray FINDINGS: The patient is rotated to the right. The heart is not enlarged and the vasculature is not distended. No acute infiltrate, effusion or pneumothorax is identified. Slight elevation of the right hemidiaphragm is again noted. Some degenerative changes are seen in the spine. There is been interval placement of a left-sided pacemaker. XR/XR chest 1V IMPRESSION: No acute infiltrate or evidence of cardiac decompensation. Except for interval placement of the pacemaker, the overall appearance of the chest is essentially unchanged. Electronically authenticated by: SANJUANA GUTIERREZ Date: 09/20/2023 19:37
--- NOTE | 2023-09-20 18:18 | CT_ITS ---
The [address] [address] Patient Name: ELISABETH BO MRN: [id number] date: 1935 Sex: M Assigned Patient Location: ER Current Patient Location: ER Accession/Order Number: [id number] Exam Date: 09/20/2023 18:35 Report Date: 09/20/2023 19:51 At the request of: VIKAS JOYA Procedure: CT head/brain wo con EXAM: CT head/brain wo con, CT cervical spine wo con; [id number], [id number] REASON FOR EXAM: syncope COMPARISON: None. TECHNIQUE: Axial CT images of the head obtained without contrast. Following this, helical CT images of the cervical spine were obtained without contrast. Multiplanar reformats generated at the scanner. Dose reduction technique used: Automated exposure control and/or adjustment of the mA and/or kV according to patient size and/or use of iterative reconstruction technique. HEAD CT FINDINGS: Parenchyma: -Mild generalized cerebral volume loss. 0-mild bilateral basal ganglia calcification -No midline shift or mass effect. Basilar cisterns are patent. -No acute intracranial hemorrhage. No loss of cortical gilbert-white differentiation to indicate acute cortical infarct. - Mild/moderate multifocal and bilateral periventricular white matter predominant hypoattenuation, nonspecific though commonly seen in the setting of chronic microvascular ischemic disease. Extra-axial spaces: No extra-axial fluid collection or hemorrhage. Ventricles: Normal in size and symmetric. Paranasal sinuses: Visualized paranasal sinuses are clear. Mastoid air cells: Visualized mastoids are clear. Orbits: Visualized orbits are within normal limits. Osseous: No acute findings. Soft tissues: No acute abnormality. CERVICAL SPINE FINDINGS: Osseous: -No acute fracture or traumatic spondylolisthesis. -Severe spondylosis which is most notable at C3-C4 and from C5 through C7. -Calcified posterior disc herniation at C4-C5 resulting in severe spinal canal narrowing. -Retro odontoid soft tissue thickening with calcification which can be seen in the setting of CPPD arthropathy. There is mild resulting narrowing at the foramen magnum. -No suspicious osseous lesion. Paraspinous soft tissues: -No acute abnormality. Visualized lung apices: -Clear. -No pneumothorax within the [id number]. CT/CT head/brain wo con IMPRESSION: 1. No acute intracranial abnormality. 2. No acute traumatic abnormality of the cervical spine. 3. Severe cervical spondylosis resulting in severe spinal canal narrowing at C4-C5. Electronically authenticated by: MALDONADO LEE Date: 09/20/2023 19:51
--- NOTE | 2023-09-20 18:18 | XR_ITS ---
The [address] [address] Patient Name: ELISABETH BO MRN: [id number] date: 1935 Sex: M Assigned Patient Location: ER Current Patient Location: ER Accession/Order Number: [id number] Exam Date: 09/20/2023 18:58 Report Date: 09/20/2023 20:05 At the request of: VIKAS JOYA Procedure: XR shoulder LT min 2V EXAM: XR shoulder LT min 2V HISTORY: The patient is an 87-year-old male, fall COMPARISON: None. FINDINGS: No fractures or dislocations are seen within or around the left shoulder. The glenohumeral joint is grossly maintained. The subacromial space is maintained. The acromioclavicular joint is narrowed but otherwise anatomically aligned. XR/XR shoulder LT min 2V IMPRESSION: No radiographic findings of acute trauma of the left shoulder. Electronically authenticated by: ARMANI INGRAM Date: 09/20/2023 20:05
--- NOTE | 2023-09-20 18:23 | ED_ITS ---
HPI HPI - General Adult General Chief complaint: Fall Stated complaint: FALL Time Seen by Provider: 09/20/23 18:02 Source: patient Mode of arrival: walk-in Limitations: no limitations History of Present Illness HPI narrative: Patient is an 87-year-old male who presents to the emergency department after multiple falls today with syncope. He has been struggling with constipation at home, he took medication to have a bowel movement and states earlier today he had liquid, watery stool after which he felt very weak and dizzy. He has had an episode of emesis. He has no abdominal pain. He states after he had the bowel movement, he attempted to ambulate but got dizzy, passing out briefly and falling on his left side. He is anticoagulated with Eliquis. He states the initial fall happened around 9 AM. He sustained an injury to the left shoulder although he is able to move the arm with no difficulty. He states he went and laid down throughout the afternoon, but he got up prior to arrival, was dizzy and fell again. He denies chest pain, shortness of breath. He is noted to be tachycardic and hypotensive at initial interview. No medications taken prior to arrival. Related Data Home Medications ?Medication ?Instructions ?Recorded ?Confirmed apixaban 5 mg tablet (Eliquis) 5 mg PO BID 01/19/23 09/20/23 polysaccharide iron complex 150 mg 150 mg PO DAILY 01/19/23 09/20/23 iron capsule (iFerex 150) atorvastatin 10 mg tablet 10 mg PO DAILY 09/20/23 09/20/23 diltiazem HCl 180 mg 180 mg PO DAILY 09/20/23 09/20/23 capsule,extended release 24 hr (Cardizem CD) flecainide 100 mg tablet 50 mg PO Q12H 09/20/23 09/20/23 lisinopril 10 1 tab PO DAILY 09/20/23 09/20/23 mg-hydrochlorothiazide 12.5 mg tablet omeprazole 20 mg capsule,delayed 20 mg PO DAILY 09/20/23 09/20/23 release polysaccharide iron complex 150 mg 150 mg PO DAILY 09/20/23 09/20/23 iron capsule (Ferrex) Allergies Allergy/AdvReac Type Severity Reaction Status Date / Time No Known Drug Allergies Allergy Verified 01/19/23 09:19 Opioid HPI Opioid Management Most Recent Opioid Data: No Data to Display Review of Systems ROS Constitutional Denies: fever or chills Eyes Denies: change in vision Ears, nose, mouth, and throat Denies: throat pain Cardiovascular Denies: chest pain Respiratory Denies: shortness of breath Gastrointestinal Reports: nausea, vomiting, diarrhea and constipation; Denies: abdominal pain Genitourinary Denies: painful urination Musculoskeletal Reports: extremity pain, joint pain and limited range of motion; Denies: back pain or neck pain Integumentary/Breast Denies: rash Neurological Denies: headache Hematologic/Lymphatic Denies: easy bruising or easy bleeding [facility] Social History Smoking status: Former smoker Exam Narrative Exam Narrative: Gen.: Awake, alert, in no distress Head: Normocephalic, atraumatic ENT: Moist mucous membranes, No facial or dental injury, C-spine nontender Respiratory: No respiratory distress, lungs clear bilaterally Cardio: Tachycardia Gastrointestinal: Abdomen is soft, nondistended and nontender to palpation, Pelvis is stable and hips are nontender Extremities: Moves extremities equally, Normal range of motion at the left shoulder with diffuse mild tenderness, no obvious deformity. Psych: Normal mood and affect Neuro: No focal neuro deficit Skin: Warm, dry, intact Constitutional Vital Signs, click to edit/add: Last Vital Signs Temp 98.4 F 09/20/23 18:13 Pulse 82 09/20/23 20:20 Resp 18 09/20/23 20:20 BP 104/60 09/20/23 20:15 Pulse Ox 98 09/20/23 20:20 Course Vital Signs Vital signs: Vital Signs Temperature 98.4 F 09/20/23 18:13 Pulse Rate 48 L 09/20/23 18:13 Respiratory Rate 18 09/20/23 18:13 Blood Pressure 85/58 L 09/20/23 18:13 Temperature 98.4 F 09/20/23 18:13 Pulse Rate 82 09/20/23 20:20 Respiratory Rate 18 09/20/23 20:20 Blood Pressure 104/60 09/20/23 20:15 Pulse Oximetry 98 09/20/23 20:20 Medical Decision Making MDM Narrative Medical decision making narrative: Patient treated with IV fluids with improvement of blood pressure and heart rate. There are no EKG changes. CT of the head, C-spine, abdomen and pelvis were performed. Patient noted to have leukocytosis, elevated BUN and creatinine and elevated lactic acid. Sepsis labs were added as a result. He has no other signs of sepsis, negative urine and negative chest x-ray. CT of the abdomen and pelvis show mild colitis. Suspect this may be the reason the patient had vomiting and diarrhea earlier today. It was recommended based on his age and syncopal episodes with low blood pressure on admission, he should be admitted overnight for IV fluids and observation. He is agreeable to this. Family is in agreement with treatment plan. He declined the need for any pain medication at time of admission and will be admitted to the hospitalist service. Cipro and flagyl ordered. Medical Records Medical records reviewed: Yes I reviewed the patient's medical records Lab Data Lab results reviewed: Yes I reviewed the patient's lab results Labs: Lab Results 09/20/23 09/20/23 09/20/23 Range/Units 18:29 19:21 19:30 WBC 18.1 H (4.0-11.0) 10^3/uL RBC 4.40 L (4.70-6.10) 10^6/uL Hgb 14.3 (14.0-18.0) g/dL Hct 43.4 (42.0-54.0) % MCV 98.6 H (80.0-94.0) fL MCH 32.5 (25.9-34.0) pg MCHC 32.9 (29.9-35.2) g/dL RDW 12.9 (11.0-15.0) % Plt Count 246 (150-450) 10^3/uL MPV 10.4 (9.5-13.5) fL Neut % (Auto) 92.5 H (43.0-75.0) % Lymph % (Auto) 1.7 L (20.5-60.0) % [place] % (Auto) 5.2 (1.7-12.0) % Eos % (Auto) 0.0 L (0.9-7.0) % Baso % (Auto) 0.2 (0.2-2.0) % Neut # (Auto) 16.8 H (1.4-6.5) 10^3/uL Lymph # (Auto) 0.3 L (1.2-3.8) 10^3/uL [place] # (Auto) 0.9 H (0.3-0.8) 10^3/uL Eos # (Auto) 0.0 (0.0-0.7) 10^3/uL Baso # (Auto) 0.0 (0.0-0.1) 10^3/uL Abs Immat Gran (auto) 0.07 H (0.00-0.03) 10^3/uL Imm/Tot Granulo (auto) 0.4 (0.0-0.5) % PT 11.2 (9.0-11.6) sec INR 1.06 VBG pH 7.333 (7.330-7.430) VBG pCO2 48.7 (40.0-52.0) mmHg Sodium 140 (136-145) mmol/L Potassium 3.8 (3.5-5.1) mmol/L Chloride 100 (98-107) mmol/L Carbon Dioxide 28.8 (21.0-32.0) mmol/L Anion Gap 15.0 BUN 32.0 H (7.0-18.0) mg/dL Creatinine 2.09 H (0.70-1.30) mg/dL Est GFR ( Amer) 37 L (>=60) Est GFR (Non-Af Amer) 30 L (>=60) BUN/Creatinine Ratio 15.3 Glucose 160 H (74-106) mg/dL Lactate 3.0 H* (0.4-2.0) mmol/L Calcium 9.9 (8.5-10.1) mg/dL Total Bilirubin 2.4 H (0.2-1.0) mg/dL AST 32 (15-37) U/L ALT 27 (16-63) U/L Alkaline Phosphatase 112 (46-116) U/L Troponin I High Sens 56.0 (4.0-76.1) pg/mL Total Protein 7.8 (6.4-8.2) g/dL Albumin 3.8 (3.4-5.0) g/dL Globulin 4.0 g/dL Albumin/Globulin Ratio 0.9 Procalcitonin 14.15 H (0.00-0.50) ng/mL TSH 1.280 (0.358-3.740) uIU/mL Urine Color Dk. yellow (YELLOW) Urine Clarity Clear (CLEAR) Urine pH 5.5 (5.0-9.0) Ur Specific [place] 1.020 (1.005-1.025) Urine Protein 30 A (NEG/TRACE) mg/dL Urine Glucose (UA) Negative (NEGATIVE) mg/dL Urine Ketones Trace A (NEGATIVE) mg/dL Urine Occult Blood Negative (NEGATIVE) Urine Nitrite Negative (NEGATIVE) Urine Bilirubin Small A (NEGATIVE) Urine Urobilinogen 1.0 (0.2-1.0) EU/dL Ur Leukocyte Esterase Negative (NEGATIVE) Urine RBC 0-2 (0-2) #/HPF Urine WBC 0-2 A (NONE SEEN) #/HPF Ur Squamous Epith Cells None seen (NONE/RARE) #/LPF Urine Crystals Seen A (None Seen) #/HPF Amorphous Sediment Few Urine Bacteria None seen (NONE SEEN) #/HPF Urine Casts Seen A (NONE SEEN) #/LPF Hyaline Casts Moderate Fine Granular Casts Few Coarse Granular Casts Rare Urine Mucus None seen (NONE SEEN) Ur Culture Indicated? No Imaging Data CT scan - head: Radiologist's impression: ITS Impressions Cervical Spine CT 09/20/23 18:18 IMPRESSION: 1. No acute intracranial abnormality. 2. No acute traumatic abnormality of the cervical spine. 3. Severe cervical spondylosis resulting in severe spinal canal narrowing at C4-C5. Electronically authenticated by: MALDONADO LEE Date: 09/20/2023 19:51 Chest X-Ray 09/20/23 18:18 IMPRESSION: No acute infiltrate or evidence of cardiac decompensation. Except for interval placement of the pacemaker, the overall appearance of the chest is essentially unchanged. Electronically authenticated by: SANJUANA GUTIERREZ Date: 09/20/2023 19:[address] 09/20/23 18:18 IMPRESSION: 1. No acute intracranial abnormality. 2. No acute traumatic abnormality of the cervical spine. 3. Severe cervical spondylosis resulting in severe spinal canal narrowing at C4-C5. Electronically authenticated by: MALDONADO LEE Date: 09/20/2023 19:51 Shoulder X-Ray 09/20/23 18:18 IMPRESSION: No radiographic findings of acute trauma of the left shoulder. Electronically authenticated by: ARMANI INGRAM Date: 09/20/2023 20:05 Abdomen/Pelvis CT 09/20/23 18:49 IMPRESSION: Findings are suggestive of colitis. Electronically authenticated by: LUIS ENRIQUE PATRICIA Date: 09/20/2023 19:57 ECG Data Attestation: I personally reviewed and interpreted this ECG as follows: (Electronic ventricular pacemaker at a rate of [address] elevation or ectopy. EKG reviewed by attending physician) Discharge Plan Discharge Chief Complaint: Fall Patient Disposition: Admitted as Observation Time of Disposition Decision: 20:13
[2023-09-20] MEDS: 0.9 % SODIUM CHLORIDE 1,000 ML 999 ML IV (18:33)
[2023-09-20 18:37] LABS: Basophils Percent Auto 0.2 % (0.2-2.0); Hematocrit 43.4 % (42.0-54.0); Hemoglobin 14.3 g/dL (14.0-18.0); Immature Granulocytes Abs Auto 0.07 10^3/uL (0.00-0.03); Immature Granulocytes Pct Auto 0.4 % (0.0-0.5); Lymphocytes Absolute Auto 0.3 10^3/uL (1.2-3.8); Lymphocytes Percent Auto 1.7 % (20.5-60.0); Mean Corpuscular HGB Conc 32.9 g/dL (29.9-35.2); Mean Corpuscular Hemoglobin 32.5 pg (25.9-34.0); Mean Corpuscular Volume 98.6 fL (80.0-94.0); Mean Platelet Volume 10.4 fL (9.5-13.5); Monocytes Absolute Auto 0.9 10^3/uL (0.3-0.8); Monocytes Percent Auto 5.2 % (1.7-12.0); Neutrophils Absolute Auto 16.8 10^3/uL (1.4-6.5); Neutrophils Percent Auto 92.5 % (43.0-75.0); Platelet Count 246 10^3/uL (150-450); Red Cell Distribution Width 12.9 % (11.0-15.0); White Blood Count 18.1 10^3/uL (4.0-11.0)
--- NOTE | 2023-09-20 18:49 | CT_ITS ---
The [address] [address] Patient Name: ELISABETH BO MRN: [id number] date: 1935 Sex: M Assigned Patient Location: ER Current Patient Location: ER Accession/Order Number: [id number] Exam Date: 09/20/2023 16:35 Report Date: 09/20/2023 19:57 At the request of: VIKAS JOYA Procedure: CT abdomen pelvis wo con CT ABDOMEN/PELVIS WITHOUT IV CONTRAST. INDICATION: vomiting and diarrhea COMPARISON: 10/24/2019 TECHNIQUE: Contiguous axial images were obtained from the lung bases to the pelvic floor without intravenous or oral contrast. Coronal and sagittal reformations are provided. FINDINGS: LOWER LUNGS: Clear. LIVER/BILIARY TREE: No discrete lesion. No intrahepatic ductal dilatation. GALLBLADDER: Status post cholecystectomy.. CBD: Normal CBD. SPLEEN: Normal in size. PANCREAS: No appreciable peripancreatic fluid. No pancreatic ductal dilatation. No discrete lesion. ADRENALS: Normal. KIDNEYS: Stable right renal cyst. No hydronephrosis. Left nephrolithiasis. STOMACH AND BOWEL: Stomach is unremarkable. No dilated bowel loops. There is thickening of the right and transverse colon. APPENDIX: Normal appendix. PERITONEAL CAVITY: No fluid. No fat stranding. ABDOMINAL WALL: No subcutaneous stranding. No subcutaneous fluid collection. LYMPH NODES: No mesenteric or retroperitoneal lymphadenopathy by CT criteria. ABDOMINAL AORTA: No aneurysm. PELVIS: No acute abnormality. MUSCULOSKELETAL: No acute osseous abnormality. CT/CT abdomen pelvis wo con IMPRESSION: Findings are suggestive of colitis. Electronically authenticated by: LUIS ENRIQUE PATRICIA Date: 09/20/2023 19:57
[2023-09-20 18:50] LABS: INR 1.06; Prothrombin Time 11.2 sec (9.0-11.6)
[2023-09-20 19:03] LABS: Alanine Aminotransferase 27 U/L (16-63); Albumin Globulin Ratio 0.9; Albumin Level 3.8 g/dL (3.4-5.0); Alkaline Phosphatase 112 U/L (46-116); Aspartate Amino Transferase 32 U/L (15-37); BUN Creatinine Ratio 15.3; Bilirubin Total 2.4 mg/dL (0.2-1.0); Calcium 9.9 mg/dL (8.5-10.1); Carbon Dioxide 28.8 mmol/L (21.0-32.0); Chloride 100 mmol/L (98-107); Estimated GFR (African America 37 (>=60); Estimated GFR (Non-African Ame 30 (>=60); Glucose 160 mg/dL (74-106); Potassium 3.8 mmol/L (3.5-5.1); Sodium 140 mmol/L (136-145); Total Protein 7.8 g/dL (6.4-8.2)
--- NOTE | 2023-09-20 19:27 | PC.NURSE ---
Patient amble to ambulate to bathroom. He states that he felt a little dizziness upon standing, but it resolved and he ambulated to the bathroom and back to the bed without further difficulty. Urine sample was collected and sent to lab. Patient is given ice chips and warm blanket.
[2023-09-20 19:45] LABS: PCO2 VBG 48.7 mmHg (40.0-52.0); pH VBG 7.333 (7.330-7.430)
[2023-09-20 19:53] LABS: Bilirubin Urine SMALL (NEGATIVE); Blood Urine NEGATIVE (NEGATIVE); Clarity Urine CLEAR (CLEAR); Color Urine DK. YELLOW (YELLOW); Glucose Urine UA NEGATIVE (NEGATIVE); Ketones Urine TRACE mg/dL (NEGATIVE); Leukocyte Esterase Urine NEGATIVE (NEGATIVE); Nitrite Urine NEGATIVE (NEGATIVE); Protein Urine 30 mg/dL (NEG/TRACE); pH Urine 5.5 (5.0-9.0)
[2023-09-20 19:54] LABS: Urine Microscopic Indicated YES
[2023-09-20 20:09] LABS: WBC Urine 0-2 #/HPF (NONE SEEN)
[2023-09-20 20:10] LABS: Amorphous Sediment Urine FEW; Bacteria Urine NONE SEEN #/HPF (NONE SEEN); Cast Seen? SEEN #/LPF (NONE SEEN); Coarse Granular Casts Urine RARE; Crystals Seen? Seen #/HPF (None Seen); Fine Granular Casts Urine FEW; Hyaline Casts Urine MODERATE; Mucus Urine NONE SEEN (NONE SEEN); RBC Urine 0-2 #/HPF (0-2); Squamous Epithelial Cell Urine NONE SEEN #/LPF (NONE/RARE); Urine Culture Indicated NO
[2023-09-20 20:13] LABS: PROCALCITONIN 14.15 ng/mL (0.00-0.50)
[2023-09-20] MEDS: METRONIDAZOLE/SODIUM CHLORIDE 500 MG/100 ML PREMIX 100 MG IV (20:37)
[2023-09-20] MEDS: CIPROFLOXACIN IN 5 % DEXTROSE 400 MG/200 ML PIGGYBACK 200 MG IV (20:37)
--- NOTE | 2023-09-20 20:56 | PC.NURSE ---
Patient resting in bed with son and daughter remaining at bedside. They state they are going to stay until he is settled in his room upstairs. Patient states that he is having pain in his left shoulder but declines pain medication when offered. He says he normally takes arthritis strength Tylenol at bedtime at home for his pains, but does not want any Tylenol yet.
--- OUTSIDE RECORDS SUMMARY | 2023-09-20 21:30 | XMS_ITS | CCD ---
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 Process Control Engineer Name Role Phone YANIV, DR BLACKWOOD Primary [...] source) dronedarone Drug Allergy 01-15-20 13 [facility] Rep[facility] (2 sources) Morphine Drug Allergy 01-15-20 13 Vomiting [facility] (2 sources) Penicillins Drug allergy (disorder) 01-15-20 13 Hives [facility] (1 source) Sulfonamides (Antibiotic) Drug allergy (disorder) 01-15-20 13 [facility] (8 sources) Ciprofloxacin Drug Allergy 09-19-19 15 Unknown, Unknown Reaction [facility] (8 sources) dronedarone Drug Allergy 08-02-19 24 Unknown, Gastrointestinal Upset [facility] (6 sources) Morphine Drug Allergy Unknown [facility] Other (3 sources) Penicillin Drug Allergy Unknown [facility] Other (1 source) Morphine Drug Allergy Unknown [facility] Other (4 sources) Substance with penicillin structure and antibacterial mechanism of action (substance) Drug allergy 09-19-19 15 Unknown [facility] Other (4 sources) Substance with sulfonamide structure and antibacterial mechanism of action (substance) Drug allergy 09-19-19 15 Unknown [facility] Other (1 source) Sulfonamides (Antibiotic) Allergy to substance 08-02-19 Gastrointestinal Upset [facility] Medications Current Medications Medication Drug Class(es) Dates [...] / neomycin 1.75 mg/ml / polymyxin b 06085 unt/ml ophthalmic solution (1 source) Aminoglycoside Antibacterial, Polymyxin-class Antibacterial Start: 05-18-2023 Ghyjpdpr-Hcexosrtw-Nzkcmabwd n [id number] 1 drop into affected eye Ophthalmic every [...] for 30 Active take 1 capsule by [facility] every twenty-four hours Ferrex 150 150 MG [...] 07-31-2023 Chronic Other aftercare (1 source) Other fpc (current) drug therapy; 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: [OTH NURSING HOME CURRENT DRUG THERAPY] Onset: 06-02-2021 Episodic Other [...] DIFFon 05-30-19 ATYPICAL LYMPH # Normal [facility] Comment on above: Performed By: #### C BCMAN #### [facility] [address] [place] [address] Dr. Aubrie Sadler ATYPICAL LYMPH % Normal [facility] Comment on above: Performed By: #### C BCMAN #### [facility] [address] [place] [address] Dr. Aubrie Sadler BAND # 0.2 103/ul Normal 0.0-0.3 [facility] Comment on above: Performed By: #### C BCMAN #### [facility] [address] [place] [address] Dr. Aubrie Sadler BAND % 2 % Normal 0-5 [facility] Comment on above: Performed By: #### C BCMAN #### [facility] [address] [place] [address] Dr. Aubrie Sadler BASOM # 0.00 103/ul Normal 0.00-0.10 [facility] Comment on above: Performed By: #### C BCMAN #### [facility] [address] [address] [address] Aubrie Sadler BASOM % 0.0 % Critically low 0.2-2.0 [facility] Comment on above: Performed By: #### C BCMAN #### [facility] [address] [place] [address] Dr. Aubrie Sadler BLAST # Normal [facility] Comment on above: Performed By: #### C BCMAN #### [facility] [address] [place] [address] Dr. Aubrie Sadler BLAST % Normal [facility] Comment on above: Performed By: #### C BCMAN #### [facility] [address] [address] [address] Aubrie Sadler CORRECTED WBC Normal 4.0-11.0 [facility] Comment on above: Performed By: #### C ABIGAIL #### [facility] [address] [address] [address] Aubrie Sadler EOS # 0.00 103/ul Normal 0.00-0.70 [facility] Comment on above: Performed By: #### C ABIGAIL #### [facility] [address] [address] [address] Aubrie Sadler EOS% 0.0 % Critically low 0.9-7.0 [facility] Comment on above: Performed By: #### C ABIGAIL #### [facility] [address] [place] [address] Dr. Aubrie Sadler HCT 33.9 % Critically low 42.0-54.0 [facility] Comment on above: Performed By: #### C ABIGAIL #### [facility] [address] [place] [address] Dr. Aubrie Sadler HGB 11.2 g/dl Critically low 14.0-18.0 [facility] Comment on above: Performed By: #### C ABIGAIL #### [facility] [address] [place] [address] Dr. Aubrie Sadler LYMPHM # 0.61 103/ul Critically low 1.20-3.80 [facility] Comment on above: Performed By: #### C ABIGAIL #### [facility] [address] [address] [address] Aubrie Sadler LYMPHM% 7.0 % Critically low 20.5-60.0 [facility] Comment on above: Performed By: #### C ABIGAIL #### [facility] [address] [place] [address] Dr. Aubrie Sadler MCH 30.3 pg Normal 25.9-34.0 [facility] Comment on above: Performed By: #### C ABIGAIL #### [facility] [address] [address] [address] Aubrie Sadler MCHC 33.0 g/dl Normal 29.9-35.2 [facility] Comment on above: Performed By: #### C BCMAN #### [facility] [address] [place] [address] Dr. Aubrie Sadler MCV 91.6 fL Normal 80.0-94.0 [facility] Comment on above: Performed By: #### C BCMAN #### [facility] [address] [place] [address] Dr. Aubrie Sadler METAMYELOCYTE # Normal [facility] Comment on above: Performed By: #### C BCMAN #### [facility] [address] [place] [address] Dr. Aubrie Sadler METAMYELOCYTE % Normal [facility] Comment on above: Performed By: #### C BCBRYON #### [facility] [address] [place] [address] Dr. Aubrie Sadler MONOM# 0.52 103/ul Normal 0.30-0.80 [facility] Comment on above: Performed By: #### C BCMAN #### [facility] [address] [place] [address] Dr. Aubrie Sadler MONOM% 6.0 % Normal 1.7-12.0 [facility] Comment on above: Performed By: #### C ABIGAIL #### [facility] [address] [place] [address] Dr. Aubrie Sadler MPV 10.0 fL Normal 9.5-13.5 [facility] Comment on above: Performed By: #### C BCBRYON #### [facility] [address] [place] [address] Dr. Aubrie Sadler MYELOCYTE # Normal [facility] Comment on above: Performed By: #### C BCBRYON #### [facility] [address] [place] [address] Dr. Aubrie Sadler MYELOCYTE % Normal [facility] Comment on above: Performed By: #### C BCBRYON #### [facility] [address] [place] [address] Dr. Aubrie Sadler NRBC Normal [facility] Comment on above: Performed By: #### C BCBRYON #### [facility] [address] [place], [place] [address] Dr. Aubrie Sadler PLT 217 103/ul Normal 150-450 [facility] Comment on above: Performed By: #### C ABIGAIL #### [facility] [address] [id number] Aubrie Sadler RBC 3.70 106/ul Critically low 4.70-6.10 [facility] Comment on above: Performed By: #### C ABIGAIL #### [facility] [address] [address] [address] Aubrie Sadler RDW 13.7 % Normal 11.0-15.0 [facility] Comment on above: Performed By: #### Rica HAYES #### [facility] [address] [address] [address] Aubrie Sadler SEG # 7.39 103/ul Critically high 1.40-6.[address] [facility] Comment on above: Performed By: #### Rica HAYES #### [facility] [address] [address] [address] Aubrie Sadler SEG % 85.0 % Critically high 43.0-75.0 [facility] Comment on above: Performed By: #### C ABIGAIL #### [facility] [address] [address] [address] Aubrie Sadler WBC 8.7 103/ul Normal 4.0-11.0 [facility] Comment on above: Performed By: #### Rica HAYES #### [facility] [address] [place] [address] ABD/PELVIS WO CONon [...] MANPREET JONES Date: 2021-05-30 21:38 Normal [facility] ER URINE PROFILEon 2 Bilirubin Ql (U) Negative Normal NEGATIVE [facility] Comment on above: Performed By: #### E RUR ####[facility] [address] [address]Dr. Aubrie Sadler Clarity (U) CLEAR Normal CLEAR [facility] Comment on above: Performed By: #### E RUR ####[facility] [address] [address]Dr. Aubrie Sadler Color (U) YELLOW Normal YELLOW [facility] Comment on above: Performed By: #### E RUR ####[facility] [address] [address]Dr. Aubrie HENLEYAHD A micrscopic examination will be performed if indicated. Normal [facility] Comment on above: Performed By: #### E RUR ####[facility] [address] [address]Dr. Aubrie Sadler Glucose Ql (U) Negative Normal NEGATIVE [facility] Comment on above: Performed By: #### E RUR ####[facility] [address] [place], [place] [address]Dr. Aubrie Sadler Hemoglobin Ql (U) Negative Normal NEGATIVE [facility] Comment on above: Performed By: #### E RUR ####[facility] [address] [place], [place] [address]Dr. Aubrie Sadler Ketones Ql (U) TRACE Abnormal NEGATIVE [facility] Comment on above: Performed By: #### E RUR ####[facility] [address] [place], [place] [address]Dr. Aubrie Doroteo LEUKOCYTES Negative Normal NEGATIVE [facility] Comment on above: Performed By: #### E RUR ####[facility] [address] [place], [place] [address]Dr. Aubrie Sadler Nitrite Ql (U) Negative Normal NEGATIVE [facility] Comment on above: Performed By: #### E RUR ####[facility] [address] [place], [place] [address]Dr. Aubrie Sadler pH (U) 5.0 [pH] Normal 5-9 [facility] Comment on above: Performed By: #### E RUR ####[facility] [address] [place], [place] [address]Dr. Aubrie Sadler SPEC GRAVITY 1.030 Abnormal 1.005-<=1.025 [facility] Comment on above: Performed By: #### E RUR ####[facility] [address] [place], [place] [address]Dr. Jasmyneling Doroteo UA PROTEIN Negative Normal NEGATIVE/ TRACE [facility] Comment on above: Performed By: #### E RUR ####[facility] [address] [place], [place] [address]Dr. Aubrie Sadler UR MICRO IND NOT INDICATED Normal [facility] Comment on above: Performed By: #### E RUR ####[facility] [address] [place], [place] [address]Dr. Aubrie Sadler Urobilinogen Qn (U) 0.2 {Julia'U}/dL Normal 0.2 - 1. 0 [facility] Comment on above: Performed By: #### E RUR ####[facility] [address] [address]Dr. Aubrie Sadler PROF 14(COMP METB)on 022 Albumin [Mass/Vol] 3.8 g/dL Normal 3.5-5.0 [facility] Comment on above: Performed By: #### C MP #### [facility] [address] [address] [address] Aubrie Sadler Albumin/Globulin [Mass ratio] 1.2 {ratio} Normal [facility] Comment on above: Performed By: #### C MP #### [facility] [address] [place] [address] Dr. Aubrie Sadler ALP [Catalytic activity/Vol] 73 U/L Normal 38-126 [facility] Comment on above: Performed By: #### C MP #### [facility] [address] [place] [address] Dr. Aubrie Sadler ALT [Catalytic activity/Vol] 20 U/L Critically low 21-72 [facility] Comment on above: Performed By: #### C MP #### [facility] [address] [place] [address] Dr. Aubrie Sadler Anion gap [Moles/Vol] 11.1 mmol/L Normal [facility] Comment on above: Performed By: #### C MP #### [facility] [address] [address] [address] Aubrie Sadler AST [Catalytic activity/Vol] 19 U/L Normal 17-59 [facility] Comment on above: Performed By: #### C MP #### [facility] [address] [place] [address] Dr. Aubrie Sadler Bilirubin [Mass/Vol] 1.5 mg/dL Critically high 0.2-1.3 [facility] Comment on above: Performed By: #### C MP #### [facility] [address] [place] [address] Dr. Aubrie Sadler Calcium [Mass/Vol] 8.9 mg/dL Normal 8.4-10.2 [facility] Comment on above: Performed By: #### C MP #### [facility] [address] [address] [address] Aubrie Sadler Chloride [Moles/Vol] 100 mmol/L Normal 98-107 [facility] Comment on above: Performed By: #### C MP #### [facility] [address] [address] [address] Aubrie Sadler CO2 [Moles/Vol] 28.8 mmol/L Normal 22.0-30.0 [facility] Comment on above: Performed By: #### C MP #### [facility] [address] [address] [address] Aubrie Sadler Creatinine [Mass/Vol] 1.72 mg/dL Critically high 0.66-1.25 [facility] Comment on above: Performed By: #### C MP #### [facility] [address] [address] [address] Aubrie Sadler EGFR-AF ENGLISH 46 mL/min/1.73m2 Critically low >=60 [facility] Comment on above: Performed By: #### C MP #### [facility] [address] [place] [address] Dr. Aubrie Sadler EGFR-NON AF ENGLISH 38 mL/min/1.73m2 Critically low >=60 [facility] Comment on above: Performed By: #### C MP #### [facility] [address] [address] [address] Aubrie Sadler Globulin (S) [Mass/Vol] 3.3 g/dL Normal [facility] Comment on above: Performed By: #### C MP #### [facility] [address] [address] [address] Aubrie Sadler Glucose [Mass/Vol] 125 mg/dL Critically high 74-106 [facility] Comment on above: Performed By: #### C MP #### [facility] [address] [address] [address] Aubrie Sadler Potassium [Moles/Vol] 3.9 mmol/L Normal 3.4-5.0 [facility] Comment on above: Performed By: #### C MP #### [facility] [address] [address] [address] Aubrie Sadler Protein [Mass/Vol] 7.1 g/dL Normal 6.1-8.2 [facility] Comment on above: Performed By: #### C MP #### [facility] [address] [address] [address] Aubrie Sadler Sodium [Moles/Vol] 136 mmol/L Critically low 137-145 [facility] Comment on above: Performed By: #### C MP #### [facility] [address] [place] [address] Dr. Aubrie Sadler Urea nitrogen [Mass/Vol] 27.0 mg/dL Critically high 9.0-20.0 [facility] Comment on above: Performed By: #### C MP #### [facility] [address] [place] [address] Dr. Aubrie Sadler Urea nitrogen/Creatinine [Mass ratio] 15.7 mg/mg Normal [facility] Comment on above: Performed By: #### C MP #### [facility] [address] [place] [address] Dr. Aubrie Sadler CBC AUTO DIFFon 04-16-2021 BASO # 0.0 103/ul Normal 0.0-0.1 [facility] Comment on above: Performed By: #### C BC ####[facility] [address] [address]Dr. Aubrie Sadler Basophils/100 WBC (Bld) 0.7 % Normal 0.2-2.0 [facility] Comment on above: Performed By: #### C BC ####[facility] [address] [address]Dr. Aubrie Sadler EO # 0.1 103/ul Normal 0.0-0.7 [facility] Comment on above: Performed By: #### C BC ####[facility] [address] [address]Dr. Aubrie Sadler Eosinophils/100 WBC (Bld) 2.4 % Normal 0.9-7.0 [facility] Comment on above: Performed By: #### C BC ####[facility] [address] [place], [place] [address]Dr. Aubrie Sadler Erythrocyte distribution width (RBC) [Ratio] 13.6 % Normal 11.0-15.0 [facility] Comment on above: Performed By: #### C BC ####[facility] [address] [place], [place] [address]Dr. Aubrie Sadler Hematocrit (Bld) [Volume fraction] 34.4 % Critically low 42.0-54.0 [facility] Comment on above: Performed By: #### C BC ####[facility] [address] [place], [place] [address]DrTadeo Sadler Hemoglobin (Bld) [Mass/Vol] 11.0 g/dL Critically low 14.0-18.0 [facility] Comment on above: Performed By: #### C BC ####[facility] [address] [place], [place] [address]Dr. Aubrie Sadler IG # 0.01 10e3/ul Normal 0.00-0.03 [facility] Comment on above: Performed By: #### C BC ####[facility] [address] [place], [place] [address]DrTadeo Sadler IG % 0.2 % Normal 0.0-0.5 [facility] Comment on above: Performed By: #### C BC ####[facility] [address] [place], [place] [address]DrTadeo Sadler LYMPH # 1.6 103/ul Normal 1.2-3.8 [facility] Comment on above: Performed By: #### C BC ####[facility] [address] [place], [place] [address]DrTadeo Sadler Lymphocytes/100 WBC (Bld) 29.3 % Normal 20.5-60.0 [facility] Comment on above: Performed By: #### C BC ####[facility] [address] [place], [place] [address]DrTadeo Sadler MANUAL DIFF REQ NO Normal [facility] Comment on above: Performed By: #### C BC ####[facility] [address] [id number]. Aubrie Sadler MCH (RBC) [Entitic mass] 29.9 pg Normal 25.9-34.0 [facility] Comment on above: Performed By: #### C BC ####[facility] [address] [address]DrTadeo Sadler MCHC (RBC) [Mass/Vol] 32.0 g/dL Normal 29.9-35.2 [facility] Comment on above: Performed By: #### C BC ####[facility] [address] [place], [place] [address]DrTadeo Sadler MCV (RBC) [Entitic vol] 93.5 fL Normal 80.0-94.0 [facility] Comment on above: Performed By: #### C BC ####[facility] [address] [place], [place] [address]DrTadeo Sadler MONO # 0.5 103/ul Normal 0.3-0.8 [facility] Comment on above: Performed By: #### C BC ####[facility] [address] [place], [place] [address]DrTadeo Sadler Monocytes/100 WBC (Bld) 9.5 % Normal 1.7-12.0 [facility] Comment on above: Performed By: #### C BC ####[facility] [address] [place], [place] [address]DrTadeo Sadler NEUT # 3.2 103/ul Normal 1.4-6.5 [facility] Comment on above: Performed By: #### C BC ####[facility] [address] [place], [place] [address]DrTadeo Sadler Neutrophils/100 WBC (Bld) 57.9 % Normal 43.0-75.0 [facility] Comment on above: Performed By: #### C BC ####[facility] [address] [place], [place] [address]DrTadeo Sadler Platelet mean volume (Bld) [Entitic vol] 10.0 fL Normal 9.5-13.5 [facility] Comment on above: Performed By: #### C BC ####[facility] [address] [address]Dr. Aubrie Sadler PLT 219 103/ul Normal 150-450 [facility] Comment on above: Performed By: #### C BC ####[facility] [address] [address]Dr. Aubrie Sadler RBC 3.68 106/ul Critically low 4.70-6.10 [facility] Comment on above: Performed By: #### C BC ####[facility] [address] [address]Dr. Aubrie Sadler WBC 5.5 103/ul Normal 4.0-11.0 [facility] Comment on above: Performed By: #### C BC ####[facility] [address] [address]Dr. Aubrie Sadler FERRITINon 04-16-2021 Ferritin [Mass/Vol] 32.0 ng/mL Normal 17.9-464.0 [facility] Comment on above: Performed By: #### F ERR #### [facility] [address] [place] [address] Dr. Aubrie Sadler OCC BLD IMMUNOASSAYon 2020 OCCULT BLOOD Negative Normal NEGATIVE [facility] Comment on above: Performed By: #### O FABRIZIO #### [facility] [address] [place] [address] Dr. Aubrie Sadler CBC AUTO DIFFon 01-23-2021 BASO # 0.0 103/ul Normal 0.0-0.1 [facility] Comment on above: Performed By: #### C BC #### [facility] [address] [place] [address] Dr. Aubrie Sadler Basophils/100 WBC (Bld) 0.7 % Normal 0.2-2.0 [facility] Comment on above: Performed By: #### C BC #### [facility] [address] [place] [address] Dr. Aubrie Sadler EO # 0.1 103/ul Normal 0.0-0.7 [facility] Comment on above: Performed By: #### C BC #### [facility] [address] [place] [address] Dr. Aubrie Sadler Eosinophils/100 WBC (Bld) 1.8 % Normal 0.9-7.0 [facility] Comment on above: Performed By: #### C BC #### [facility] [address] [place] [address] Dr. Aubrie Sadler Erythrocyte distribution width (RBC) [Ratio] 13.9 % Normal 11.0-15.0 [facility] Comment on above: Performed By: #### C BC #### [facility] [address] [place] [address] Dr. Aubrie Sadler Hematocrit (Bld) [Volume fraction] 34.6 % Critically low 42.0-54.0 [facility] Comment on above: Performed By: #### C BC #### [facility] [address] [place] [address] Dr. Aubrie Sadler Hemoglobin (Bld) [Mass/Vol] 11.4 g/dL Critically low 14.0-18.0 [facility] Comment on above: Performed By: #### C BC #### [facility] [address] [place] [address] Dr. Aubrie Sadler IG # 0.01 10e3/ul Normal 0.00-0.03 [facility] Comment on above: Performed By: #### C BC #### [facility] [address] [place] [address] Dr. Aubrie Sadler IG % 0.2 % Normal 0.0-0.5 [facility] Comment on above: Performed By: #### C BC #### [facility] [address] [place] [address] Dr. Aubrie Sadler LYMPH # 1.8 103/ul Normal 1.2-3.8 [facility] Comment on above: Performed By: #### C BC #### [facility] [address] [place] [address] Dr. Aubrie Sadler Lymphocytes/100 WBC (Bld) 31.4 % Normal 20.5-60.0 [facility] Comment on above: Performed By: #### C BC #### [facility] [address] [place] [address] Dr. uAbrie Sadler MANUAL DIFF REQ NO Normal [facility] Comment on above: Performed By: #### C BC #### [facility] [address] [place] [address] Dr. Aubrie Sadler MCH (RBC) [Entitic mass] 30.5 pg Normal 25.9-34.0 [facility] Comment on above: Performed By: #### C BC #### [facility] [address] [place] [address] Dr. Aubrie Sadler MCHC (RBC) [Mass/Vol] 32.9 g/dL Normal 29.9-35.2 [facility] Comment on above: Performed By: #### C BC #### [facility] [address] [place] [address] Dr. Aubrie Sadler MCV (RBC) [Entitic vol] 92.5 fL Normal 80.0-94.0 [facility] Comment on above: Performed By: #### C BC #### [facility] [address] [place] [address] Dr. Aubrie Sadler MONO # 0.6 103/ul Normal 0.3-0.8 [facility] Comment on above: Performed By: #### C BC #### [facility] [address] [place] [address] Dr. Aubrie Sadler Monocytes/100 WBC (Bld) 10.5 % Normal 1.7-12.0 [facility] Comment on above: Performed By: #### C BC #### [facility] [address] [place] [address] Dr. Aubrie Sadler NEUT # 3.1 103/ul Normal 1.4-6.5 [facility] Comment on above: Performed By: #### C BC #### [facility] [address] [place] [address] Dr. Aubrie Sadler Neutrophils/100 WBC (Bld) 55.4 % Normal 43.0-75.0 [facility] Comment on above: Performed By: #### C BC #### [facility] [address] [address] [address] Aubrie Sadler Platelet mean volume (Bld) [Entitic vol] 10.5 fL Normal 9.5-13.5 [facility] Comment on above: Performed By: #### C BC #### [facility] [address] [address] [address] Aubrie Sadler PLT 230 103/ul Normal 150-450 [facility] Comment on above: Performed By: #### C BC #### [facility] [address] [address] [address] Aubrie Sadler RBC 3.74 106/ul Critically low 4.70-6.10 [facility] Comment on above: Performed By: #### C BC #### [facility] [address] [address] [address] Aubrie Sadler WBC 5.6 103/ul Normal 4.0-11.0 [facility] Comment on above: Performed By: #### C BC #### [facility] [address] [address] [address] Aubrie Sadler FERRITINon 01-23-2021 Ferritin [Mass/Vol] 25.0 ng/mL Normal 17.9-464.0 [facility] Comment on above: Performed By: #### F OL, FETIBC, VITB12, FERR ####[facility] [id number] [address]Dr. Aubrie Sadler FOLATEon 01-23-2021 FOLATE 16.70 ng/mL Normal >=2.76 [facility] Comment on above: Performed By: #### F OL, FETIBC, VITB12, FERR ####[facility] [address] [address]Dr. Aubrie Sadler IRON AND TIBCon 01-23-2021 % SATURATION 15.2 % Normal [facility] Comment on above: Performed By: #### F OL, FETIBC, VITB12, FERR ####[facility] [address] [id number]. Aubrie Sadler Iron [Mass/Vol] 54.0 ug/dL Normal 49.0-181.0 [facility] Comment on above: Performed By: #### F OL, FETIBC, VITB12, FERR ####[facility] [address] [id number]. Aubrie Sadler TIBC DIRECT 356.0 ug/dL Normal 261.0-497.0 [facility] Comment on above: Performed By: #### F OL, FETIBC, VITB12, FERR ####[facility] [address] [id number]. Aubrie Sadler VITAMIN B12on 01-23-2021 Cobalamin (Vitamin B12) [Mass/Vol] 380.0 pg/mL Normal 239.0-931.0 [facility] Comment on above: Performed By: #### F OL, FETIBC, VITB12, FERR ####[facility] [address] [address]Dr. Aubrie Sadler CBC AUTO DIFFon 10-23-2020 BASO # 0.1 103/ul Normal 0.0-0.1 [facility] Comment on above: Performed By: #### C BC #### [facility] [address] [id number] Marcus Rachel Basophils/100 WBC (Bld) 1.0 % Normal 0.2-2.0 [facility] Comment on above: Performed By: #### C BC #### [facility] [address] [id number] Marcus Rachel EO # 0.1 103/ul Normal 0.0-0.7 [facility] Comment on above: Performed By: #### C BC #### [facility] [address] [id number] Marcus Rachel Eosinophils/100 WBC (Bld) 2.0 % Normal 0.9-7.0 [facility] Comment on above: Performed By: #### C BC #### [facility] [address] [place], [place] [id number] Marcus Rachel Erythrocyte distribution width (RBC) [Ratio] 13.0 % Normal 11.0-15.0 [facility] Comment on above: Performed By: #### C BC #### [facility] [address] [place] [address] Marcus Ramos Hematocrit (Bld) [Volume fraction] 37.6 % Critically low 42.0-54.0 [facility] Comment on above: Performed By: #### C BC #### [facility] [address] [place] [address] Marcus Ramos Hemoglobin (Bld) [Mass/Vol] 12.3 g/dL Critically low 14.0-18.0 [facility] Comment on above: Performed By: #### C BC #### [facility] [address] [place] [address] Marcusbaldomero Ramos IG # 0.01 10e3/ul Normal 0.00-0.03 [facility] Comment on above: Performed By: #### C BC #### [facility] [address] [place] [address] Marcus Ramos IG % 0.2 % Normal 0.0-0.5 [facility] Comment on above: Performed By: #### C BC #### [facility] [address] [place] [address] Marcus Ramos LYMPH # 1.8 103/ul Normal 1.2-3.8 [facility] Comment on above: Performed By: #### C BC #### [facility] [address] [place] [address] Marcus Ramos Lymphocytes/100 WBC (Bld) 36.0 % Normal 20.5-60.0 [facility] Comment on above: Performed By: #### C BC #### [facility] [address] [place] [address] Marcus Ramos MANUAL DIFF REQ NO Normal [facility] Comment on above: Performed By: #### C BC #### [facility] [address] [place] [address] Marcus Ramos MCH (RBC) [Entitic mass] 30.4 pg Normal 25.9-34.0 [facility] Comment on above: Performed By: #### C BC #### [facility] [address] [place], [place] [id number] Marcus Ramos MCHC (RBC) [Mass/Vol] 32.7 g/dL Normal 29.9-35.2 [facility] Comment on above: Performed By: #### C BC #### [facility] [address] [place], [place] [address] Marcusbaldomero Ramos MCV (RBC) [Entitic vol] 93.1 fL Normal 80.0-94.0 [facility] Comment on above: Performed By: #### C BC #### [facility] [address] [place] [address] Marcus Ramso MONO # 0.6 103/ul Normal 0.3-0.8 [facility] Comment on above: Performed By: #### C BC #### [facility] [address] [place] [address] Marcusbaldomero Farleyen Monocytes/100 WBC (Bld) 11.8 % Normal 1.7-12.0 [facility] Comment on above: Performed By: #### C BC #### [facility] [address] [place], [place] [address] Marcus Ramos NEUT # 2.4 103/ul Normal 1.4-6.5 [facility] Comment on above: Performed By: #### C BC #### [facility] [address] [place], [place] [phone] Marcus Ramos Neutrophils/100 WBC (Bld) 49.0 % Normal 43.0-75.0 [facility] Comment on above: Performed By: #### C BC #### [facility] [address] [place], [place] [address] Marcusbaldomero Ramos Platelet mean volume (Bld) [Entitic vol] 10.5 fL Normal 9.5-13.5 [facility] Comment on above: Performed By: #### C BC #### [facility] [address] [place], [place] [address] Marcus Rachel PLT 233 103/ul Normal 150-450 [facility] Comment on above: Performed By: #### C BC #### [facility] [address], [place] [address] Marucs Rachel RBC 4.04 106/ul Critically low 4.70-6.10 [facility] Comment on above: Performed By: #### C BC #### [facility] [address] [place], [place] [address] Marcus Rachel WBC 4.9 103/ul Normal 4.0-11.0 [facility] Comment on above: Performed By: #### C BC #### [facility] [address] [place], [place] [address] Marcus Rachel FERRITINon 10-23-2020 Ferritin [Mass/Vol] 21.0 ng/mL Normal 17.9-464.0 [facility] Comment on above: Performed By: #### F ERR #### [facility] [address] [place] [address] Marcus Rachel LIPID PROFILEon 10-23-2020 CHOL-HDL RATIO NORM SEE BELOW Normal [facility] Comment on above: Result Comment: 3.3 - 4.4 LOW RISK 4.4 - 7.1 AVERAGE RISK 7.1 - 11.0 MODERATE RISK >11.0 HIGH RISK Performed By: #### B MP, LIPID #### [facility] [address] [place] [address] Marcus Rachel Cholesterol [Mass/Vol] 131 mg/dL Normal <=200 [facility] Comment on above: Performed By: #### B MP, LIPID #### [facility] [address] [place], [place] [address] Marcus Rachel Cholesterol in HDL [Mass/Vol] 71 mg/dL Normal [facility] Comment on above: Performed By: #### B MP, LIPID #### [facility] [address] [place] [address] Marcus Rachel Cholesterol in LDL [Mass/Vol] 54.4 mg/dL Normal [facility] Comment on above: Performed By: #### B MP, LIPID #### [facility] [address] [place] [address] Marcus Rachel Cholesterol.total/Ch olesterol in HDL [Mass ratio] 1.8 {ratio} Normal [facility] Comment on above: Performed By: #### B MP, LIPID #### [facility] [address], [place] [address] Marcus Rachel HDL NORMAL > or = 60 mg/dl - LOW CARDIOVASCULAR RISK <40 mg/dl - HIGH CARDIOVASCULAR RISK Normal [facility] Comment on above: Performed By: #### B MP, LIPID #### [facility] [address] [phone] Marcus Rachel LDL CALC NORMAL SEE BELOW Normal [facility] Comment on above: Result Comment: <100 mg/dl OPTIMAL 100 - 129 mg/dl NEAR OR ABOVE OPTIMAL 130 - 159 mg/dl BORDERLINE HIGH 160 - 189 mg/dl HIGH >190 mg/dl VERY HIGH Performed By: #### B MP, LIPID #### [facility] [address] [place] [address] Marcus Rachel Triglyceride [Mass/Vol] 28 mg/dL Normal <=150 [facility] Comment on above: Performed By: #### B MP, LIPID #### [facility] [address] [place], [place] [address] Marcus Rachel VLDL CALC 5.6 mg/dL Normal [facility] Comment on above: Performed By: #### B MP, LIPID #### [facility] [address] [place], [place] [address] Marcus Rachel PROF CHEM 8 (BAS METB)on Anion gap [Moles/Vol] 9.7 mmol/L Normal [facility] Comment on above: Performed By: #### B MP, LIPID #### [facility] [address] [place], [place] [address] Marcus Rachel Calcium [Mass/Vol] 8.9 mg/dL Normal 8.4-10.2 [facility] Comment on above: Performed By: #### B MP, LIPID #### [facility] [address] [place], [place] [address] Marcus Rachel Chloride [Moles/Vol] 104 mmol/L Normal 98-107 [facility] Comment on above: Performed By: #### B MP, LIPID #### [facility] [address] [address] Marcus Rachel CO2 [Moles/Vol] 30.9 mmol/L Critically high 22.0-30.0 [facility] Comment on above: Performed By: #### B MP, LIPID #### [facility] [address] [address] Marcus Rachel Creatinine [Mass/Vol] 1.19 mg/dL Normal 0.66-1.25 [facility] Comment on above: Performed By: #### B MP, LIPID #### [facility] [address] [address] Marcus Rachel EGFR-AF ENGLISH >60 Normal >=[address] [facility] Comment on above: Performed By: #### B MP, LIPID #### [facility] [address] [address] Marcus Rachel EGFR-NON AF ENGLISH 58 mL/min/1.73m2 Critically low >=60 [facility] Comment on above: Performed By: #### B MP, LIPID #### [facility] [address] [address] Marcus Rachel Glucose [Mass/Vol] 93 mg/dL Normal 74-106 [facility] Comment on above: Performed By: #### B MP, LIPID #### [facility] [address] [address] Marcus Rachel Potassium [Moles/Vol] 3.6 mmol/L Normal 3.4-5.0 [facility] Comment on above: Performed By: #### B MP, LIPID #### [facility] [address] [address] Marcus Rachel Sodium [Moles/Vol] 141 mmol/L Normal 137-145 [facility] Comment on above: Performed By: #### B MP, LIPID #### [facility] [address] [address] Marcus Rachel Urea nitrogen [Mass/Vol] 14.0 mg/dL Normal 9.0-20.0 [facility] Comment on above: Performed By: #### B MP, LIPID #### [facility] [address], [place] [address] Marcus Ramos Urea nitrogen/Creatinine [Mass ratio] 11.8 mg/mg Normal [facility] Comment on above: Performed By: #### B MP, LIPID #### [facility] [address], [place] [address] Marcus Ramos Vital Signs Date Time Vital Sign Value Performing Clinician Facility 08-02-2023 11:18-0400 Body height 175.26 cm [facility] 08-02-2023 11:18-0400 Body mass index (BMI) [Ratio] 24.7 kg/m2 [facility] 08-02-2023 11:18-0400 Body weight 75.97 kg [facility] 08-02-2023 11:18-0400 Diastolic blood pressure 67 mm[Hg] [facility] 08-02-2023 11:18-0400 Heart rate 77 /min [facility] 08-02-2023 11:18-0400 Respiratory rate 12 /min [facility] 08-02-2023 11:18-0400 Systolic blood pressure 130 mm[Hg] [facility] 05-18-2023 09:15-0500 Body height 175.26 cm Jaison Ball Other [facility] 05-18-2023 09:15-0500 Body mass index (BMI) [Ratio] 25.25 kg/m2 Jaison Ball Other [facility] Other 05-18-2023 09:15-0500 Body weight 77.57 kg Jaison Ball Other [facility] Other 05-18-2023 09:15-0500 Body weight 77.56 kg [facility] 05-18-2023 09:15-0500 Diastolic blood pressure 76 mm[Hg] Jaison Ball Other [facility] 05-18-2023 09:15-0500 Respiratory rate 12 /min Jaison Ball Other [facility] Other 05-18-2023 09:15-0500 Systolic blood pressure 142 mm[Hg] Jaison Ball Other [facility] 02-01-2023 11:00-0400 Body height 175.26 cm Jaison Ball Other [facility] Other 02-01-2023 11:00-0400 Body mass index (BMI) [Ratio] 25.13 kg/m2 Jaison Ball Other [facility] Other 02-01-2023 11:00-0400 Body weight 77.2 kg Jaison Ball Other [facility] Other 02-01-2023 11:00-0400 Diastolic blood pressure 67 mm[Hg] Jaison Ball Other [facility] Other 02-01-2023 11:00-0400 Respiratory rate 12 /min Jaison Ball Other [facility] Other 02-01-2023 11:00-0400 Systolic blood pressure 122 mm[Hg] Jaison Ball Other [facility] Other 11-03-2022 13:45-0400 Body height 175.26 cm Jaison Ball Other [facility] Other 11-03-2022 13:45-0400 Body mass index (BMI) [Ratio] 25.1 kg/m2 Jaison Ball Other [facility] Other 11-03-2022 13:45-0400 Body weight 77.11 kg Jaison Ball Other [facility] Other 11-03-2022 13:45-0400 Diastolic blood pressure 56 mm[Hg] Jaison Ball Other [facility] Other 11-03-2022 13:45-0400 Respiratory rate 12 /min Jaison Ball Other [facility] Other 11-03-2022 13:45-0400 Systolic blood pressure 108 mm[Hg] Jaison Ball Other [facility] Other 08-03-2022 12:00-0400 Body height 175.26 cm Jaison Ball Other [facility] Other 08-03-2022 12:00-0400 Body mass index (BMI) [Ratio] 25.04 kg/m2 Jaison Ball Other [facility] Other 08-03-2022 12:00-0400 Body weight 76.93 kg Jaison Ball Other [facility] Other 08-03-2022 12:00-0400 Diastolic blood pressure 66 mm[Hg] Jaison Ball Other [facility] Other 08-03-2022 12:00-0400 Respiratory rate 12 /min Jaison Ball Other [facility] Other 08-03-2022 12:00-0400 Systolic blood pressure 114 mm[Hg] Jaison Ball Other [facility] Other 06-24-2022 11:00-0500 Body height 175.26 cm Jaison Ball Other [facility] Other 06-24-2022 11:00-0500 Body mass index (BMI) [Ratio] 25.28 kg/m2 Jaison Ball Other [facility] Other 06-24-2022 11:00-0500 Body weight 77.66 kg Jaison Ball Other [facility] Other 06-24-2022 11:00-0500 Diastolic blood pressure 70 mm[Hg] Jaison Ball Other [facility] Other 06-24-2022 11:00-0500 Respiratory rate 12 /min Jaison Ball Other [facility] Other 06-24-2022 11:00-0500 Systolic blood pressure 118 mm[Hg] Jaison Ball Other [facility] Other Encounters Encounter Date Encounter Type Care Provider Facility Start: 08-02-2023 End: 08-02-2023 ambulatory [facility] Work Phone: Start: 08-02-2023 End: 08-02-2023 Patient encounter procedure [facility] Work Phone: Start: 06-27-2023 End: 06-27-2023 ambulatory STACEY A PETITTI Not Available Start: 05-26-2023 End: 05-26-2023 ambulatory STACEY A PETITTI Not Available Start: 05-18-2023 End: 05-18-2023 ambulatory Jaison Ball Other [facility] Other Start: 05-18-2023 Office outpatient vi sit 15 minutes Jaison Ball [facility] Start: 05-18-2023 End: 05-18-2023 Patient encounter procedure [facility] Work Phone: Start: 03-25-2023 End: 03-25-2023 ambulatory Jaison Ball Other [facility] Other Start: 03-25-2023 Office outpatient vi sit 15 minutes Jaison Ball [facility] Start: 02-10-2023 End: 02-10-2023 ambulatory Jaison Ball Other [facility] Other Start: 02-10-2023 Telephone encounter Jaison Ball [facility] Start: 02-01-2023 End: 02-01-2023 ambulatory Jaison Nuno Other [facility] Other Start: 02-01-2023 Patient encounter procedure Jaison Nuno [facility] Start: 11-03-2022 End: 11-03-2022 ambulatory Jaison Nuno Other [facility] Other Start: 11-03-2022 Office outpatient vi sit 15 minutes Jaison Nuno [facility] Start: 08-03-2022 End: 08-03-2022 ambulatory Jaison Nuno Other [facility] Other Start: 08-03-2022 Office outpatient vi sit 25 minutes Jaison Nuno [facility] Start: 06-24-2022 End: 06-24-2022 ambulatory Jaison Nuno Other [facility] Other Start: 06-24-2022 Office outpatient vi sit 15 minutes Jaison Nuno [facility] Start: 05-30-2021 End: 05-31-[address] JAISON [...] marilia 02-01-2023 influenza virus vaccine, unspecified formulation [facility] 02-01-2023 influenza, high dose seasonal, preservative-free Jaison Nuno Other [facility] Other 02-27-2022 COVID-19 Pfizer (Pediatric) Jaison Nuno Other [facility] 01-26-2022 influenza virus vaccine, split virus (incl. purified surface antigen) Jaison Nuno Other [facility] Other 01-26-2022 influenza virus vaccine, unspecified formulation [facility] 10-29-2021 pneumococcal polysaccharide vaccine, 23 valent Jaison Nuno Other [facility] 02-17-2021 influenza virus vaccine, split virus (incl. purified surface antigen) Jaison Nuno Other [place] [facility] Other 02-17-2021 influenza virus vaccine, unspecified formulation [facility] 02-06-2020 influenza virus vaccine, split virus (incl. purified surface antigen) Jaison Nuno Other [facility] Other 02-06-2020 influenza virus vaccine, unspecified formulation [facility] 02-21-2019 influenza virus vaccine, split virus (incl. purified surface antigen) Jaison Nuno Other [place] [facility] Other 02-21-2019 influenza virus vaccine, unspecified formulation [facility] 02-10-2018 influenza virus vaccine, split virus (incl. purified surface antigen) Jaison Nuno Other [facility] Other 02-10-2018 influenza virus vaccine, unspecified formulation [facility] 03-02-2017 influenza virus vaccine, split virus (incl. purified surface antigen) Jaison Nuno Other [place] [employer] Other 03-02-2017 influenza virus vaccine, unspecified formulation [facility] 02-20-2016 pneumococcal conjuga te vaccine, 13 valent Jaison Nuno Other [facility] 02-12-2016 influenza virus vaccine, split virus (incl. purified surface antigen) Jaison Yaniv Other [facility] Other 02-12-2016 influenza virus vaccine, unspecified formulation [facility] 02-28-2015 influenza virus vaccine, split virus (incl. purified surface antigen) Jaison Nuno Other [facility] Other 02-28-2015 influenza virus vaccine, unspecified formulation [facility] 02-05-2014 tetanus and diphther ia toxoids, adsorbed, preservative free, for adult use (5 Lf of tetanus toxoid and 2 Lf of diphtheria toxoid) Jaison Nuno Other [facility] 01-24-2013 tetanus and diphther ia toxoids, adsorbed, preservative free, for adult use (5 Lf of tetanus toxoid and 2 Lf of diphtheria toxoid) Jaison Nuno Other [facility] 04-13-1995 pneumococcal polysaccharide vaccine, 23 valent Jaison Nuno Other [facility] Payers Date Payer Category Payer Unknown [id number] 1959 Medicare [id number] 1959 Self-pay 1959 Unknown [id number] 1935 Unknown [id number] 2.16.84 [id number] 1935 Unknown [id number] 2.16.84 [id number] 1935 Unknown [id number] 2.16.84 [id number] 1935 Unknown [id number] 2.16.84 [id number] 1935 Unknown [id number] 2.16.84 [id number] 1935 Unknown [id number] 2.16.84 [id number] 1935 Unknown [id number] 2.16.84 [id number] Unknown [id number] 2.16.84 [id number] Unknown [id number] 2.16.84 [id number] Social History Date Type Detail Facility Unknown if ever smoked [facility] Other Sex Assigned At Sex Assigned At Bir th [facility] Other Start: 05-18-2023 Tobacco smoking status NHIS Ex-smoker (finding) [facility] Start: 1935 Sex Assigned At Male F [facility] Evaluation note 05-18-2023 Note Date & Type Note Facility 05-18-2023 Evaluation note Encounter Date Diagnosis Assessment Notes May, 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 May, Trigger ring finger of right hand (ICD-10 - M65.341) Soak in warm water, Voltaren Gel. Discussed injection or surgery, which would require referral to [facility]oped[facility] Other Evaluation note 03-25-2023 Note Date & [...] in the past has resulted in AF. [facility] Other Evaluation note 02-01-2023 Note Date & [...] are maintaining regular scheduled appts with their horse rider. No bleeding complications Jan, Primary hypertension (ICD-10 [...] of antibiotics. Suspect spermatocele/veri cocele US ordered [facility] Other Evaluation note 11-03-2022 Note Date & Type Note Facility 11-03-2022 Evaluation note Encounter Date Diagnosis Assessment Notes Oct, Epididymoorchitis (ICD-10 - N45.3) No s/s torsion or testicular mass No s/s hernia Avoid strenuous activity. Supportive garments. Push fluids Begin antibiotics. Oct, Left nephrolithiasis (ICD-10 - N20.0) Push fluids Avoid dark pop. f/u Urology [facility] Other Evaluation note 08-03-2022 Note Date & Type Note Facility 08-03-2022 Evaluation note Encounter Date Diagnosis Assessment Notes Jul, Paroxysmal atrial fibrillation (ICD-10 - I48.0) This patient is in NSR or rate controlled. This patient is anticoagulated to prevent thromboembolic events. They are maintaining regular scheduled appts with their horse rider. Jul, Primary hypertension (ICD-10 - I10) This [...] labs due next month, will await results myDocket Other Evaluation note 06-24-2022 Note Date & [...] are maintaining regular scheduled appts with their horse rider. 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 Lumbar spondylosis acute Nonischemic cardiomyopathy a [facility] Work Phone: History general Narrative - Reported [...] PACEMAKER 20 20 Hospitalization History see above myDocket Other Summary Purpose Family History Relationship Condition [...] DATE CREATED AUTHOR AUTHOR'S ORGANNELA ATION 06/27/2023 [facility] EPIC REASON FOR VISIT (unrecogniz ed section and content) PAIN IN FOREARM6 MONTH FOLLO W UPSwelling/Pain in TesticleMWEUS [phone] phone call only, hoarsenessBump on bridge of [...] BE BASED ON THE PRIMARY CLINICAL RECORDS. [employer] provides no warranty or guarantee of the accuracy or completeness of information in this document.
[2023-09-20] MEDS: FLECAINIDE ACETATE 50 MG TABLET PO (22:10)
[2023-09-20] MEDS: APIXABAN 5 MG TABLET PO (22:10)
[2023-09-20] MEDS: 0.9 % SODIUM CHLORIDE 1,000 ML 126 ML IV (22:15)
[2023-09-20 22:26] LABS: Lactate/Lactic Acid 2.5 mmol/L (0.4-2.0)
[2023-09-21] VITALS (14 sets, daily range): BP systolic 105–149; BP diastolic 48–72; PULSE 69–84; TEMP 36.4–36.9; O2SAT 92–98
[2023-09-21] MEDS: METRONIDAZOLE/SODIUM CHLORIDE 500 MG/100 ML PREMIX 100 MG IV ×3 (04:38→20:42)
[2023-09-21 04:56] LABS: Basophils Percent Auto 0.1 % (0.2-2.0); Hematocrit 34.3 % (42.0-54.0); Hemoglobin 11.3 g/dL (14.0-18.0); Immature Granulocytes Abs Auto 0.09 10^3/uL (0.00-0.03); Immature Granulocytes Pct Auto 0.6 % (0.0-0.5); Lymphocytes Absolute Auto 0.9 10^3/uL (1.2-3.8); Lymphocytes Percent Auto 6.2 % (20.5-60.0); Mean Corpuscular HGB Conc 32.9 g/dL (29.9-35.2); Mean Corpuscular Hemoglobin 32.7 pg (25.9-34.0); Mean Corpuscular Volume 99.1 fL (80.0-94.0); Mean Platelet Volume 10.7 fL (9.5-13.5); Neutrophils Absolute Auto 12.4 10^3/uL (1.4-6.5); Neutrophils Percent Auto 86.1 % (43.0-75.0); Platelet Count 194 10^3/uL (150-450); Red Blood Count 3.46 10^6/uL (4.70-6.10); Red Cell Distribution Width 13.1 % (11.0-15.0); White Blood Count 14.4 10^3/uL (4.0-11.0)
[2023-09-21 05:24] LABS: Anion Gap 11.5; BUN Creatinine Ratio 19.7; Calcium 8.4 mg/dL (8.5-10.1); Carbon Dioxide 26.4 mmol/L (21.0-32.0); Chloride 105 mmol/L (98-107); Estimated GFR (African America 51 (>=60); Estimated GFR (Non-African Ame 42 (>=60); Glucose 107 mg/dL (74-106); Potassium 3.9 mmol/L (3.5-5.1); Sodium 139 mmol/L (136-145); Troponin I High Sensitivity 39.6 pg/mL (4.0-76.1)
[2023-09-21] MEDS: 0.9 % SODIUM CHLORIDE 1,000 ML 126 ML IV (05:24)
--- NOTE | 2023-09-21 07:57 | PC.NURSE ---
mild dizziness when first sitting up in bed
--- NOTE | 2023-09-21 09:09 | US_ITS ---
[address] [address] Patient Name: ELISABETH BO MRN: [id number] date: 1935 Sex: M Assigned Patient Location: ICU Current Patient Location: ICU Accession/Order Number: [id number] Exam Date: 09/21/2023 09:10 Report Date: 09/21/2023 11:34 At the request of: PRAMOD MCCRACKEN Procedure: US carotid duplex BI EXAMINATION: US carotid duplex BI HISTORY: Carotid artery stenosis COMPARISON: No relevant comparison available. TECHNIQUE: Duplex Doppler ultrasound analysis of carotid and vertebral arteries. . Bilateral carotid arterial duplex examination was performed using B-mode, color flow and spectral analysis. Carotid stenosis is reported according to validated velocity parameters, similar to NASCET criteria. FINDINGS: RIGHT CAROTID ARTERY PSV/EDV centimeters per second: Extensive atherosclerosis maximum area of reduction of 79% in the carotid bulb CCA: 137/11 ICA: 142/16 Bulb: 141/16 ECA: 175/0 Vertebral: 74/0, antegrade Subclavian: 144/0 ICA/CCA ratio: 1.1 LEFT CAROTID ARTERY PSV/EDV centimeters per second: extensive atherosclerosis. Maximum area reduction 70% in the carotid bulb CCA: 145/17 ICA: 211/27 Bulb: 74/9 ECA: 293/16 Vertebral: 94/18, antegrade Subclavian: 156/0 ICA/CCA ratio: 2.2 US/US carotid duplex BI IMPRESSION: 0-49% flow stenosis right internal carotid artery 50-69% flow stenosis left internal carotid artery 79% area reduction in the right carotid bulb 70% area reduction left carotid bulb Spectral Doppler US Thresholds (Reference: Moises EG, et al. Radiology 2000; 214:247-252) Stenosis (%) PSV (cm/sec) VICA/VCCA 0-49 <150 <2.5 50-69 150-225 2.5-4.0 >70 >225 >4.0 Electronically authenticated by: JOYCE YAN Date: 09/21/2023 11:34
[2023-09-21] MEDS: CIPROFLOXACIN IN 5 % DEXTROSE 400 MG/200 ML PIGGYBACK 200 MG IV ×2 (09:25→19:41)
[2023-09-21] MEDS: OMEPRAZOLE 20 MG CAPSULE.DR PO (09:26)
[2023-09-21] MEDS: FLECAINIDE ACETATE 50 MG TABLET PO ×2 (09:26→20:42)
[2023-09-21] MEDS: ATORVASTATIN CALCIUM 10 MG TABLET PO (09:26)
[2023-09-21] MEDS: APIXABAN 5 MG TABLET 2.5 MG PO ×2 (09:27→20:41)
--- NOTE | 2023-09-21 10:49 | CM.NOTE ---
Rounds made with Dr. Lovelace. Results of testing reviewed with Mr. Valdez by Dr. Lovelace. Mr. Valdez verbalizes understanding.
--- NOTE | 2023-09-21 11:13 | P.HP_ITS ---
<Statement entered by Greyson Gandara MD - 09/21/23 13:12> Patient seen and examined, agree with assessment and plan below. Presented with syncope and found hypotension, dehydration, and colitis. On antibiotics. Check US carotid. Increase fluid intake. Increase ambulation. Start PT/OT. Diagnosis: 1. Sepsis 2. Syncope 3. Colitis 4. WAI 5. Dehydration 6. Bilateral carotid stenosis 7. Nonischemic cardiomyopathy 8. HTN 9. Paroxysmal afib 10. CKD 3a HPI H&P: HPI History of Present Illness Chief complaint: FALL SYNCOPE DEHYDRATION COLITIS Narrative: 09/21/23 0955 This is an 87-year-old male patient with past medical history as outlined below including nonischemic cardiomyopathy, paroxysmal A-fib with indwelling pacemaker, CKD 3 AA, HTN, and bilateral carotid artery stenosis; who presented to the ED last night complaining of 2 syncopal episodes earlier in the day. He reports constipation for several days followed by diarrhea yesterday and an episode of emesis. He then began to feel weak, dizzy, and blacked out yesterday morning and then just prior to arrival in the ED. He presented to the ED for further evaluation and complaining of left shoulder pain after his syncopal episode. Workup in the ED revealed hypotension (85/58), tachycardia (124), and tachypnea (28). Labs revealed leukocytosis (18.1), WAI on CKD 3a (BUN 32, CR 2.09, GFR 30), hyperbilirubinemia (2.4), and lactic acidosis (3.0). A procalcitonin was also ordered and was elevated (14.15). He was treated with IV fluids in the ED and his lactic acid began to trend down. A chest x-ray and left shoulder x-ray were unremarkable. A CT of the head and cervical spine did not reveal any acute abnormalities. CT of the abdomen and pelvis revealed colitis. He was initially admitted last night in observation to the hospitalist service for his colitis. At the time of my exam the patient is resting in bed having just gone to the bathroom. He denies dizziness with ambulation today. 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 He reports inadequate oral fluid intake especially with 1 of these episodes. He also noted severe shaking after his syncopal episode yesterday - unclear if this represents chills or shaking from shock. He normally is hypertensive and takes several medications for elevated blood pressures. He does not follow with any GI specialist for his colitis. As his labs and vital signs clearly presented picture of sepsis, his status has been changed to inpatient. We will continue IV fluid administration, but reduce the rate to 100 ml/hour to avoid fluid overload. His BP remains soft but is no longer very low. Due to the patient's history of carotid stenosis, we have ordered a carotid US to rule out critical stenosis as the etiology of his syncope. Opioid HPI Opioid Management Most Recent Opioid Data: Last Pain Scale 8 09/21/23 07:00 Last Pain Assessment 09/21/23 12:00 Last ORT Total Score 0 09/20/23 21:49 Last ORT Risk Category Low Risk 09/20/23 21:49 Review of Systems ROS Status of ROS 10 or more systems reviewed and unremark able except as noted in history and below [facility] Medical History (Updated 09/21/23 @ 11:52 by Lesli Montalvo NP) Colitis ?K52.9 - Noninfective gastroenteritis and colitis, unspecified (ICD-10) CKD stage 3a, GFR 45-59 ml/min ?N18.31 - Chronic kidney disease, stage 3a (ICD-10) Paroxysmal atrial fibrillation ?I48.0 - Paroxysmal atrial fibrillation (ICD-10) Benign essential hypertension ?I10 - Essential (primary) hypertension (ICD-10) Nonischemic cardiomyopathy ?I42.8 - Other cardiomyopathies (ICD-10) Bilateral carotid artery stenosis ?I65.23 - Occlusion and stenosis of bilateral carotid arteries (ICD-10) Finger laceration ?S61.219A - Laceration without foreign body of unspecified finger without damage to nail, initial encounter (ICD-10) Colonoscopy planned 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, unspecified wrist (ICD-10) Cholecystectomy planned Knee arthropathy ?M17.10 - Unilateral primary osteoarthritis, unspecified knee (ICD-10) Pacemaker ?Z95.0 - Presence of cardiac pacemaker (ICD-10) Afib ?I48.91 - Unspecified atrial fibrillation (ICD-10) Surgical History (Updated 09/21/23 @ 04:34 by Radha Gunter) H/O esophagogastroduodenoscopy ?Z98.890 - Other specified postprocedural states (ICD-10) Previous back surgery ?Z98.890 - Other specified postprocedural states (ICD-10) H/O transurethral resection of bladder tumor (TURBT) ?Z98.890 - Other specified postprocedural states (ICD-10) ?Z86.03 - Personal history of neoplasm of uncertain behavior (ICD-10) Family History (Updated 09/21/23 @ 04:35 by Radha Gunter) Father Family history of CHF (congestive heart failure) Family history of COPD (chronic obstructive pulmonary disease) Family history of myocardial infarction Mother Family history of hypertension Social History (Updated 09/21/23 @ 04:37 by Radha Gunter) Within the past year, how often did you have a drink containing alcohol: never Within the past year, how often did you have six or more drinks on one occasion: never Score interpretation: A score less than 4 is consistent with normal alcohol consumption. 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 Highest level of school completed/degree received: 6th grade Are you now , , , , never or living with a partner: In a typical week, how many times do you talk on the telephone with family, friends, or neighbors: 3 or more times per week How often do you get together with friends or relatives: 3 or more times per week How often do you attend quaker or voodoo services: 4 or more times per year Do you belong to any clubs or organizations such as quaker groups unions, fraternal or athletic groups, or school groups: no Total score: 2 Score interpretation: A score of greater than or equal to 2 indicates the lowest level of social isolation. Little interest or pleasure in doing things: not at all Feeling down, depressed, or hopeless: not at all Feel stressed/tense/nervous/anxious/difficulty sleeping: not at all Due to disability, difficulty making decisions: No Do you think of yourself as: straight/heterosexual Gender Identity: male Meds Home Medications and Allergies Home Medications ?Medication ?Instructions ?Recorded ?Confirmed ?Type apixaban 5 mg tablet (Eliquis) 5 mg PO BID 01/19/23 09/20/23 History polysaccharide iron complex 150 mg 150 mg PO DAILY 01/19/23 09/20/23 History iron capsule (iFerex 150) atorvastatin 10 mg tablet 10 mg PO DAILY 09/20/23 09/20/23 History diltiazem HCl 180 mg 180 mg PO DAILY 09/20/23 09/20/23 History capsule,extended release 24 hr (Cardizem CD) flecainide 100 mg tablet 50 mg PO Q12H 09/20/23 09/20/23 History lisinopril 10 1 tab PO DAILY 09/20/23 09/20/23 History mg-hydrochlorothiazide 12.5 mg tablet omeprazole 20 mg capsule,delayed 20 mg PO DAILY 09/20/23 09/20/23 History release polysaccharide iron complex 150 mg 150 mg PO DAILY 09/20/23 09/20/23 History iron capsule (Ferrex) Allergies Allergy/AdvReac Type Severity Reaction Status Date / Time No Known Drug Allergies Allergy Verified 01/19/23 09:19 Exam Constitutional Vital Signs, click to edit/add: Last Vital Signs Temp 97.5 F L 09/21/23 07:00 Pulse 73 09/21/23 10:00 Resp 12 09/21/23 07:00 BP 105/58 09/21/23 07:00 Pulse Ox 98 09/21/23 07:00 O2 Del Method Room Air 09/21/23 07:00 Common normals: no apparent distress, oriented x3, alert and well nourished General appearance: cooperative Orientation/consciousness: Yes awake [facility] Common normals: normocephalic, head/scalp atraumatic, hearing grossly normal bilaterally, external nose normal and moist oral mucous membranes Eye Common normals: PERRL, EOMs intact bilaterally, conjunctivae normal and no scleral icterus Alignment: alignment normal Eyelid: eyelids normal Neck & C-Spine Common normals: full ROM, supple and no JVD Chest Common normals: inspection of chest normal Chest: symmetrical chest wall rise Respiratory Common normals: normal respiratory effort, no retractions, no use of accessory muscles and clear to auscultation bilaterally Effort & inspection: able to speak in complete sentences Cardio Common normals: no JVD, regular rate, regular rhythm, S1 normal heart sound, S2 normal heart sound, no gallops, no clicks, no rub and peripheral pulses 2+ throughout Heart sounds: murmur (HSM 2/6) and other (HT diminished) GI Common normals: soft to palpation, non-tender, no hepatosplenomegaly, no masses and no bruits Inspection: normal to inspection; no abdominal distension Auscultation: hypoactive bowel sounds Bladder/kidney exam: bladder normal to palpation Back & Pelvis Common normals: thoracic and lumbar spine normal to inspection Extremity Common normals: normal capillary refill and no pedal edema General: normal exam except as noted; no clubbing and no cyanosis Neuro [place] Coma Scale: GCS not evaluated Common normals: CN's II-XII intact bilaterally, moves all extremities, no focal motor deficits and no sensory deficits noted Speech: speech normal Motor exam: strength 5/5 throughout Psych Common normals: mental status grossly normal, thought process normal, affect normal and activity/motor behavior normal Results Labs Labs: Short CBC 09/20/23 09/21/23 Range/Units 18:29 04:32 WBC 18.1 H 14.4 H (4.0-11.0) 10^3/uL Hgb 14.3 11.3 L (14.0-18.0) g/dL Hct 43.4 34.3 L (42.0-54.0) % Plt Count 246 194 (150-450) 10^3/uL BMP 09/20/23 09/21/23 18:29 04:32 Sodium 140 139 Potassium 3.8 3.9 Chloride 100 105 Carbon Dioxide 28.8 26.4 BUN 32.0 H 31.0 H Creatinine 2.09 H 1.57 H Glucose 160 H 107 H Calcium 9.9 8.4 L Liver Function 09/20/23 Range/Units 18:29 Total Bilirubin 2.4 H (0.2-1.0) mg/dL AST 32 (15-37) U/L ALT 27 (16-63) U/L Alkaline Phosphatase 112 (46-116) U/L Albumin 3.8 (3.4-5.0) g/dL Urine 09/20/23 Range/Units 19:21 Urine Color Dk. yellow (YELLOW) Urine Clarity Clear (CLEAR) Urine pH 5.5 (5.0-9.0) Ur Specific [place] 1.020 (1.005-1.025) Urine Protein 30 A (NEG/TRACE) mg/dL Urine Glucose (UA) Negative (NEGATIVE) mg/dL ABG ABG results: 09/20/23 19:30 VBG pH 7.333 VBG pCO2 48.7 Pulse Oximetry Attestation: I have reviewed the pertinent pulse oximetry results. Assessment and Plan Assessment and Plan (1) Sepsis: Assessment and Plan: Acute * Adm inpatient * We anticipate greater than a 2 midnight stay for medically necessary hospital care including continuous IVFs, IV antibiotics, daily labs, and close nursing monitoring of VS * AEB: * SEP1 Criteria (Severe Sepsis): SIRS (HR 128, RR 28, WBCs 18,100), Hypotension (SBP 85), Bilirubin 2.4, Lactic acid 3.0. Source - Colitis * SEP3 Criteria: qSOFA score of 2 (SBP 85, RR 28), SOFA score of 3 (Bili 2.4, MAP 65). Source - colitis * 1 liter IVF bolus given in the ED, then NS at 126/hr overnight * Adequate BP response, MAP > 70 but BPs remain soft * Lactic acid down to 1.0 today * Continue NS at reduced rate of 100/hr to avoid fluid overload in a pt w/ hx of ischemic cardiomyopathy * PCT 14.15 in the ED, trend daily * BC x 2 obtained in the ED - pending * Hold home antihypertensives for now * CBC, CMP daily Qualifiers: Sepsis type: sepsis due to unspecified organism Sepsis acute organ dysfunction status: with acute organ dysfunction Severe sepsis acute organ dysfunction type: acute renal failure Acute renal failure type: unspecified Severe sepsis shock status: without septic shock Qualified Code(s): A41.9 - Sepsis, unspecified organism; R65.20 - Severe sepsis without septic shock; N17.9 - Acute kidney failure, unspecified (2) Syncope: Assessment and Plan: Acute * Suspect 2/2 hypotension/dehydration - see sepsis * Carotid duplex today to r/o worsening carotid stenosis * OVS per nursing qshift Qualifiers: Syncope type: unspecified Qualified Code(s): R55 - Syncope and collapse (3) WAI (acute kidney injury): Assessment and Plan: Acute * Suspect 2/2 dehydration from HCTZ/diarrhea/poor oral intake * Cr 2.09, GFR 30 in ED * Improved today - Cr 1.57, GFR 42. Not yet to baseline CKD 3a * Hold renal toxic meds - home lisinopril, HCTZ * IVF as above - see sepsis * CMP daily (4) Dehydration: Assessment and Plan: Acute * 2/2 diarrhea/poor oral intake/HCTZ * Hold HCTZ * IVF as above (5) Colitis: Assessment and Plan: Acute on chronic * Pt reports long standing hx of colitis, but unclear if infectious vs ischemic vs autoimmune * Does not follow w/ GI and usually tolerates episodes of constipation/diarrhea/emesis fairly well * IV Cipro/Flagyl for suspected acute infectious colitis in setting of leukocytosis w/ left shift * Consider GI referral at d/c (6) Paroxysmal atrial fibrillation: Assessment and Plan: Chronic * Continue home flecainide for rate control * Hold home diltiazem for now d/t hypotension * Continue home Eliquis at reduced dosing of 2.5 mg based on age, falls, and reduced renal fx (7) Benign essential hypertension: Assessment and Plan: Chronic * Hold home antihypertensives for now d/t hypotension/syncope * Likely d/c HCTZ at discharge d/t risk for dehydration w/ recurrent diarrhea episodes (8) Bilateral carotid artery stenosis: Assessment and Plan: Chronic * Repeat Carotid US today to r/o worsening stenosis as etiology of syncope
--- NOTE | 2023-09-21 11:39 | SWNOTE1 ---
SW met with pt to discuss dc needs. Pt lives at home alone. His daughter lives close by and he talks with her on phone daily. Pt's in June. He does not use a walker at home at this point, depending what therapy recommends, SW to re-assess. Pt voiced he has been doing alright, just got dizzy a few times at home and had 2 falls. He voiced he is feeling better now. SW to review therapy notes and will re-assess discharge plans. At this time pt voices he does not have any needs.
--- NOTE | 2023-09-21 12:47 | PC.NURSE ---
Household Assistant called patient's daughter, Malathi, and updated on room change.
--- NOTE | 2023-09-21 13:01 | SWNOTE1 ---
SW reviewed therapy notes and pt is independent and no further PT/OT needed.
[2023-09-21] MEDS: 0.9 % SODIUM CHLORIDE 1,000 ML 100 ML IV (15:10)
[2023-09-21 15:23] LABS: Adenovirus F 40/41 NOT DETECTED (NOT DETECTE); Astrovirus NOT DETECTED (NOT DETECTE); Campylobacter NOT DETECTED (NOT DETECTE); Cryptosporidium NOT DETECTED (NOT DETECTE); Cyclospora cayetanensis NOT DETECTED (NOT DETECTE); Entamoeba histolytica NOT DETECTED (NOT DETECTE); Enteroaggregative E.coli NOT DETECTED (NOT DETECTE); Enteropathogenic E.coli NOT DETECTED (NOT DETECTE); Enterotoxigenic E. coli NOT DETECTED (NOT DETECTE); Giardia lamblia NOT DETECTED (NOT DETECTE); Norovirus GI/GII NOT DETECTED (NOT DETECTE); Plesiomonas shigelloides NOT DETECTED (NOT DETECTE); Rotavirus A NOT DETECTED (NOT DETECTE); Salmonella NOT DETECTED (NOT DETECTE); Sapovirus NOT DETECTED (NOT DETECTE); Shiga-like toxin-producing E.C NOT DETECTED (NOT DETECTE); Shigella/Enteroinvasive E.coli NOT DETECTED (NOT DETECTE); Vibrio NOT DETECTED (NOT DETECTE); Vibrio cholerae NOT DETECTED (NOT DETECTE); Yersinia enterocolitica NOT DETECTED (NOT DETECTE)
[2023-09-22] MEDS: 0.9 % SODIUM CHLORIDE 1,000 ML 100 ML IV (02:05)
[2023-09-22 04:00] VITALS: BP 145/74; PULSE 71; TEMP 36.6; O2SAT 92
[2023-09-22] MEDS: METRONIDAZOLE/SODIUM CHLORIDE 500 MG/100 ML PREMIX 100 MG IV (04:26)
[2023-09-22 04:46] LABS: Basophils Percent Auto 0.2 % (0.2-2.0); Eosinophils Absolute Auto 0.2 10^3/uL (0.0-0.7); Eosinophils Percent Auto 1.5 % (0.9-7.0); Hematocrit 32.6 % (42.0-54.0); Hemoglobin 10.6 g/dL (14.0-18.0); Immature Granulocytes Abs Auto 0.04 10^3/uL (0.00-0.03); Immature Granulocytes Pct Auto 0.4 % (0.0-0.5); Lymphocytes Absolute Auto 0.9 10^3/uL (1.2-3.8); Lymphocytes Percent Auto 9.2 % (20.5-60.0); Mean Corpuscular HGB Conc 32.5 g/dL (29.9-35.2); Mean Corpuscular Hemoglobin 32.3 pg (25.9-34.0); Mean Corpuscular Volume 99.4 fL (80.0-94.0); Mean Platelet Volume 10.7 fL (9.5-13.5); Monocytes Absolute Auto 0.6 10^3/uL (0.3-0.8); Monocytes Percent Auto 5.7 % (1.7-12.0); Neutrophils Absolute Auto 8.2 10^3/uL (1.4-6.5); Platelet Count 166 10^3/uL (150-450); Red Blood Count 3.28 10^6/uL (4.70-6.10); Red Cell Distribution Width 13.1 % (11.0-15.0); White Blood Count 9.9 10^3/uL (4.0-11.0)
[2023-09-22 05:24] LABS: Alanine Aminotransferase 17 U/L (16-63); Albumin Globulin Ratio 0.8; Albumin Level 2.6 g/dL (3.4-5.0); Alkaline Phosphatase 75 U/L (46-116); Anion Gap 9.6; Aspartate Amino Transferase 19 U/L (15-37); BUN Creatinine Ratio 19.5; Calcium 8.3 mg/dL (8.5-10.1); Carbon Dioxide 25.8 mmol/L (21.0-32.0); Chloride 107 mmol/L (98-107); Estimated GFR (African America >60 (>=60); Estimated GFR (Non-African Ame 58 (>=60); Globulin 3.2 g/dL; Glucose 92 mg/dL (74-106); Potassium 3.4 mmol/L (3.5-5.1); Sodium 139 mmol/L (136-145); Total Protein 5.8 g/dL (6.4-8.2)
[2023-09-22] MEDS: ACETAMINOPHEN 325 MG TABLET 650 MG PO (08:09)
[2023-09-22] MEDS: ATORVASTATIN CALCIUM 10 MG TABLET PO (08:09)
[2023-09-22] MEDS: IRON POLYSACCHARIDE COMPLEX 150 MG CAPSULE PO (08:10)
[2023-09-22] MEDS: FLECAINIDE ACETATE 50 MG TABLET PO (08:10)
[2023-09-22] MEDS: CIPROFLOXACIN IN 5 % DEXTROSE 400 MG/200 ML PIGGYBACK 200 MG IV (08:10)
[2023-09-22] MEDS: OMEPRAZOLE 20 MG CAPSULE.DR PO (08:10)
[2023-09-22] MEDS: POTASSIUM CHLORIDE 10 MEQ ER TABLET 40 MEQ PO (08:10)
[2023-09-22] MEDS: APIXABAN 5 MG TABLET 2.5 MG PO (08:10)
[2023-09-22 08:18] VITALS: BP 147/76; PULSE 73; TEMP 36.8; O2SAT 95
--- NOTE | 2023-09-22 09:18 | SWNOTE1 ---
Important Message from [employer] reviewed and discussed with patient on 09/21/23. Pt. verbalized understanding and signed the form. Original given to patient and copy placed in patient?s chart.
--- NOTE | 2023-09-22 11:00 | P.DS_ITS ---
<Statement entered by Greyson Gandara MD - 09/22/23 14:53> Patient seen and examined, agree with assessment and plan below. Presented with syncope and found hypotension, dehydration, and colitis. Treated with antibiotics. US carotid unchanged from fall. Labs improved and ambulating well. Discharged home in stable condition. Will stop HCTZ and use lisinopril on own. Complete antibiotics. Diagnosis: 1. Sepsis 2. Syncope 3. Colitis 4. WAI 5. Dehydration 6. Bilateral carotid stenosis 7. Nonischemic cardiomyopathy 8. HTN 9. Paroxysmal afib 10. CKD 3a DS: Providers Provider Date of admission: 09/21/23 08:13 Primary care physician: Jaison Purvis DO Consults: 09/20/23 Consult to Major General Routine Reason for consult:: Other Other reason:: Age, falls in the home. 09/21/23 09:00 Occupational Therapy Eval and Treat Routine Reason for consultation: Syncope and collapse Has provider been notified: No Physical Therapy Eval and Treat Routine Reason for consultation: Syncope and collapse Has provider been notified: No Discharging clinician: Lesli Montalvo DS: Diagnosis Discharge Diagnosis (1) Sepsis: Qualifiers: Acute renal failure type: unspecified Sepsis acute organ dysfunction status: with acute organ dysfunction Sepsis type: sepsis due to unspecified organism Severe sepsis acute organ dysfunction type: acute renal failure Severe sepsis shock status: without septic shock Qualified Code(s): A41.9 - Sepsis, unspecified organism; R65.20 - Severe sepsis without septic shock; N17.9 - Acute kidney failure, unspecified (2) Syncope: Qualifiers: Syncope type: unspecified Qualified Code(s): R55 - Syncope and collapse (3) WAI (acute kidney injury): (4) Dehydration: (5) Colitis: (6) Paroxysmal atrial fibrillation: (7) Benign essential hypertension: (8) Bilateral carotid artery stenosis: DS: Summary Hospital Course Hospital Course: The patient was admitted after a syncopal episode at home with hypotension and sepsis secondary to an acute colitis exacerbation, WAI, and dehydration. He was treated with IV fluids, and IVPB Cipro and Flagyl. Leukocytosis noted on admission had resolved at the time of discharge and his blood pressure was stable and he had no further syncope or near syncope. His home hydrochlorothiazide was held during his stay and at discharge due to concern for dehydration and hypotension. As the patient's symptoms had resolved and his labs were all improving he is being discharged home in stable condition. He teodoro uld follow-up with his PCP in 5 to 7 days. He was prescribed Cipro and Flagyl for 7 days at discharge. Time Spent with Patient Time attestation: Total time spent providing and/or coordinating discharge services: Time spent: greater than 30 minutes Specific discharge activities: Physical exam, discussion of discharge plan, questions answered. Exam Constitutional Vital Signs, click to edit/add: Last Vital Signs Temp 98.2 F 09/22/23 08:18 Pulse 73 09/22/23 08:18 Resp 16 09/22/23 08:18 BP 147/76 H 09/22/23 08:18 Pulse Ox 95 09/22/23 08:18 O2 Del Method Room Air 09/22/23 08:18 Common normals: no apparent distress, oriented x3 and alert General appearance: cooperative Orientation/consciousness: Yes awake HENMT Common normals: normocephalic and head/scalp atraumatic Eye Common normals: PERRL, EOMs intact bilaterally, conjunctivae normal and no scleral icterus Neck & C-Spine Common normals: no JVD Respiratory Common normals: normal respiratory effort, no use of accessory muscles and clear to auscultation bilaterally Effort & inspection: able to speak in complete sentences and symmetric chest movement Cardio Common normals: no JVD, regular rate, regular rhythm, S1 normal heart sound, S2 normal heart sound and peripheral pulses 2+ throughout Heart sounds: murmur (Faint, 2/6) GI Common normals: Normal to inspection, nondistended, normoactive bowel sounds present, soft to palpation and non-tender Bladder/kidney exam: bladder normal to palpation Extremity Common normals: normal to inspection, full ROM, normal capillary refill and no pedal edema General: no clubbing and no cyanosis Neuro Common normals: moves all extremities, no focal motor deficits and no sensory deficits noted Speech: speech normal Psych Common normals: mental status grossly normal and activity/motor behavior normal DS: Data Data Completed and Pending Labs on day of discharge: Labs from last 24 hours 09/22/23 09/21/23 04:10 13:45 WBC 9.9 RBC 3.28 L Hgb 10.6 L Hct 32.6 L MCV 99.4 H MCH 32.3 MCHC 32.5 RDW 13.1 Plt Count 166 MPV 10.7 Neut % (Auto) 83.0 H Lymph % (Auto) 9.2 L [place] % (Auto) 5.7 Eos % (Auto) 1.5 Baso % (Auto) 0.2 Neut # (Auto) 8.2 H Lymph # (Auto) 0.9 L [place] # (Auto) 0.6 Eos # (Auto) 0.2 Baso # (Auto) 0.0 Abs Immat Gran (auto) 0.04 H Imm/Tot Granulo (auto) 0.4 Sodium 139 Potassium 3.4 L Chloride 107 Carbon Dioxide 25.8 Anion Gap 9.6 BUN 23.0 H Creatinine 1.18 Est GFR ( Amer) >60 Est GFR (Non-Af Amer) 58 L BUN/Creatinine Ratio 19.5 Glucose 92 Calcium 8.3 L Total Bilirubin 1.0 AST 19 ALT 17 Alkaline Phosphatase 75 Total Protein 5.8 L Albumin 2.6 L Globulin 3.2 Albumin/Globulin Ratio 0.8 Procalcitonin 7.20 H Stl C. cayetanensis PCR Not detected Stool Rotavirus (PCR) Not detected Stool Adenovirus (PCR) Not detected Stool Astrovirus (PCR) Not detected Stool Campylobacter PCR Not detected Stool Cryptosporidium PCR Not detected St Sh/Enteroin Ecoli PCR Not detected Stl Enterotoxigenic E PCR Not detected Stool EPEC (PCR) Not detected Stl E. histolytica PCR Not detected Stool Giardia Lamblia PCR Not detected Stl P. shigelloides PCR Not detected Stool Salmonella PCR Not detected Stool Sapovirus (PCR) Not detected Stl Shiga-like Tx [address].enterocolitica PCR Not detected Stl Vibrio cholerae PCR Not detected Stl Enteroaggr Ecoli PCR Not detected Stl Norovirus GI/GII PCR Not detected Specimen Source Stool C. difficile Toxin A&B Not detected Vibrio Culture Not detected Discharge Plan Discharge Disposition: Home, Self-Care Condition: Good Discharge Medications: New lisinopril 10 mg tablet 10 mg PO DAILY Qty: 30 0RF ciprofloxacin HCl 500 mg tablet 500 mg PO BID Qty: 14 0RF metronidazole 500 mg tablet 500 mg PO Q8H 7 Days Qty: 21 0RF Continued polysaccharide iron complex [iFerex 150] 150 mg iron capsule 150 mg PO DAILY Eliquis 5 mg tablet 5 mg PO BID atorvastatin 10 mg tablet 10 mg PO DAILY diltiazem HCl [Cardizem CD] 180 mg capsule,extended release 24hr 180 mg PO DAILY omeprazole 20 mg capsule,delayed release(DR/EC) 20 mg PO DAILY polysaccharide iron complex [Ferrex 150] 150 mg iron capsule 150 mg PO DAILY flecainide 100 mg tablet 50 mg PO Q12H Discontinued lisinopril-hydrochlorothiazide 10-12.5 mg tablet 1 tab PO DAILY Activity: increase activity as tolerated Diet: advance to your usual diet Print Language: [place] Citizen Patient Instructions: Syncope (DC), Fall Prevention for Older Adults (DC), Near Syncope (DC), Fall Prevention (DC) Activity Restrictions/Additional Instructions: - Consider referral to GI for colitis management - Increase oral fluid intake whenever diarrhea occurs Forms: Portal Instructions Follow Up Appointments: September 25 @ 1:45pm with Dr. Purvis [phone] Discharge Date/Time: 09/22/23 11:42
--- NOTE | 2023-09-22 11:38 | CM.NOTE ---
Rounds made with Dr. Gandara. Patient states no dizziness this morning. Patient to be discharged today w po antibiotics and to followup with PCP next week. No discharge needs anticipated.
--- OUTSIDE RECORDS SUMMARY | 2023-09-23 11:54 | XMS_ITS | CCD ---
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 [employer] Service Team Member Name Role Phone YANIV, DR BLACKWOOD Primary [...] source) dronedarone Drug Allergy 01-15-20 13 [facility] (2 sources) Morphine Drug Allergy 01-15-20 13 Vomiting [facility] (2 sources) Penicillins Drug allergy (disorder) 01-15-20 13 Hives [facility] (1 source) Sulfonamides (Antibiotic) Drug allergy (disorder) 01-15-20 13 [facility] (8 sources) Ciprofloxacin Drug Allergy 09-19-19 15 Unknown, Unknown Reaction [facility] (8 sources) dronedarone Drug Allergy 08-02-19 24 Unknown, Gastrointestinal Upset [facility] (6 sources) Morphine Drug Allergy Unknown [facility] Other (3 sources) Penicillin Drug Allergy Unknown [employer] Other (1 source) Morphine Drug Allergy Unknown [employer] Other (4 sources) Substance with penicillin structure and antibacterial mechanism of action (substance) Drug allergy 09-19-19 15 Unknown [employer] Other (4 sources) Substance with sulfonamide structure and antibacterial mechanism of action (substance) Drug allergy 09-19-19 15 Unknown [employer] Other (1 source) Sulfonamides (Antibiotic) Allergy to substance 08-02-19 Gastrointestinal Upset [facility] Medications Current Medications Medication Drug Class(es) [...] / neomycin 1.75 mg/ml / polymyxin b 29344 unt/ml ophthalmic solution (1 source) Aminoglycoside Antibacterial, Polymyxin-class Antibacterial Start: 05-18-2023 Nxowxhgp-Cvonrteug-Ptmlnbmsu n 1.75-65162-.025 1 drop into affected eye Ophthalmic every [...] 30 Active take 1 capsule by [facility] every twenty-four hours Ferrex 150 [...] 07-31-2023 Chronic Other aftercare (1 source) Other fci (current) drug therapy; 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: [OTH HALF-WAY CURRENT [...] DIFFon 05-30-19 ATYPICAL LYMPH # Normal [facility] Comment on above: Performed By: #### C BCMAN #### [facility] [address] [place] [address] Dr. Aubrie Sadler ATYPICAL LYMPH % Normal [facility] Comment on above: Performed By: #### C BCMAN #### [facility] [address] [place] [address] Dr. Aubrie Sadler BAND # 0.2 103/ul Normal 0.0-0.3 [facility] Comment on above: Performed By: #### C BCMAN #### [facility] [address] [place] [address] Dr. Aubrie Sadler BAND % 2 % Normal 0-5 [facility] Comment on above: Performed By: #### C BCMAN #### [facility] [address] [place] [address] Dr. Aubrie Sadler BASOM # 0.00 103/ul Normal 0.00-0.10 [facility] Comment on above: Performed By: #### C BCMAN #### [facility] [address] [address] [address] Aubrie Sadler BASOM % 0.0 % Critically low 0.2-2.0 [facility] Comment on above: Performed By: #### C BCMAN #### [facility] [address] [place] [address] Dr. Aubrie Sadler BLAST # Normal [facility] Comment on above: Performed By: #### C BCMAN #### [facility] [address] [place] [address] Dr. Aubrie Sadler BLAST % Normal [facility] Comment on above: Performed By: #### C BCMAN #### [facility] [address] [address] [address] Aubrie Sadler CORRECTED WBC Normal 4.0-11.0 [facility] Comment on above: Performed By: #### C ABIGAIL #### [facility] [address] [address] [address] Aubrie Sadler EOS # 0.00 103/ul Normal 0.00-0.70 [facility] Comment on above: Performed By: #### C ABIGAIL #### [facility] [address] [address] [address] Aubrie Sadler EOS% 0.0 % Critically low 0.9-7.0 [facility] Comment on above: Performed By: #### C ABIGAIL #### [facility] [address] [place] [address] Dr. Aubrie Sadler HCT 33.9 % Critically low 42.0-54.0 [facility] Comment on above: Performed By: #### C ABIGAIL #### [facility] [address] [place] [address] Dr. Aubrie Sadler HGB 11.2 g/dl Critically low 14.0-18.0 [facility] Comment on above: Performed By: #### C ABIGAIL #### [facility] [address] [place] [address] Dr. Aubrie Sadler LYMPHM # 0.61 103/ul Critically low 1.20-3.80 [facility] Comment on above: Performed By: #### C ABIGAIL #### [facility] [address] [address] [address] Aubrie Sadler LYMPHM% 7.0 % Critically low 20.5-60.0 [facility] Comment on above: Performed By: #### C ABIGAIL #### [facility] [address] [place] [address] Dr. Aubrie Sadler MCH 30.3 pg Normal 25.9-34.0 [facility] Comment on above: Performed By: #### C ABIGAIL #### [facility] [address] [address] [address] Aubrie Sadler MCHC 33.0 g/dl Normal 29.9-35.2 [facility] Comment on above: Performed By: #### C BCMAN #### [facility] [address] [place] [address] Dr. Aubrie Sadler MCV 91.6 fL Normal 80.0-94.0 [facility] Comment on above: Performed By: #### C BCMAN #### [facility] [address] [place] [address] Dr. Aubrie Sadler METAMYELOCYTE # Normal [facility] Comment on above: Performed By: #### C BCMAN #### [facility] [address] [place] [address] Dr. Aubrie Sadler METAMYELOCYTE % Normal [facility] Comment on above: Performed By: #### C BCBRYON #### [facility] [address] [place] [address] Dr. Aubrie Sadler MONOM# 0.52 103/ul Normal 0.30-0.80 [facility] Comment on above: Performed By: #### C BCMAN #### [facility] [address] [place] [address] Dr. Aubrie Sadler MONOM% 6.0 % Normal 1.7-12.0 [facility] Comment on above: Performed By: #### C ABIGAIL #### [facility] [address] [place] [address] Dr. Aubrie Sadler MPV 10.0 fL Normal 9.5-13.5 [facility] Comment on above: Performed By: #### C BCBRYON #### [facility] [address] [place] [address] Dr. Aubrie Sadler MYELOCYTE # Normal [facility] Comment on above: Performed By: #### C BCBRYON #### [facility] [address] [place] [address] Dr. Aubrie Sadler MYELOCYTE % Normal [facility] Comment on above: Performed By: #### C BCBRYON #### [facility] [address] [place] [address] Dr. Aubrie Sadler NRBC Normal [facility] Comment on above: Performed By: #### C BCBRYON #### [facility] [address] [place], [place] [address] Dr. Aubrie Sadler PLT 217 103/ul Normal 150-450 [facility] Comment on above: Performed By: #### C ABIGAIL #### [facility] [id number] Aubrie Sadler RBC 3.70 106/ul Critically low 4.70-6.10 [facility] Comment on above: Performed By: #### C ABIGAIL #### [facility] [address] [address] [address] Aubrie Sadler RDW 13.7 % Normal 11.0-15.0 [facility] Comment on above: Performed By: #### Rica HAYES #### [facility] [address] [address] [address] Aubrie Sadler SEG # 7.39 103/ul Critically high 1.40-6.50 [facility] Comment on above: Performed By: #### Rica HAYES #### [facility] [address] [address] [address] Aubrie Sadler SEG % 85.0 % Critically high 43.0-75.0 [facility] Comment on above: Performed By: #### C ABIGAIL #### [facility] [address] [address] [address] Aubrie Sadler WBC 8.7 103/ul Normal 4.0-11.0 [facility] Comment on above: Performed By: #### Rica HAYES #### [facility] [address] [place] [address] ABD/PELVIS WO CONon [...] MANPREET JONES Date: 2021-05-30 21:38 Normal [facility] ER URINE PROFILEon 2 Bilirubin Ql (U) Negative Normal NEGATIVE [facility] Comment on above: Performed By: #### E RUR ####[facility] [address] [address]Dr. Aubrie Sadler Clarity (U) CLEAR Normal CLEAR [facility] Comment on above: Performed By: #### E RUR ####[facility] [address] [address]Dr. Aubrie Sadler Color (U) YELLOW Normal YELLOW [facility] Comment on above: Performed By: #### E RUR ####[facility] [address] [address]Dr. Aubrie HENLEYAHD A micrscopic examination will be performed if indicated. Normal [facility] Comment on above: Performed By: #### E RUR ####[facility] [address] [address]Dr. Aubrie Sadler Glucose Ql (U) Negative Normal NEGATIVE [facility] Comment on above: Performed By: #### E RUR ####[facility] [address] [place], [place] [address]Dr. Aubrie Sadler Hemoglobin Ql (U) Negative Normal NEGATIVE [facility] Comment on above: Performed By: #### E RUR ####[facility] [address] [place], [place] [address]Dr. Aubrie Sadler Ketones Ql (U) TRACE Abnormal NEGATIVE [facility] Comment on above: Performed By: #### E RUR ####[facility] [address] [place], [place] [address]Dr. Aubrie Doroteo LEUKOCYTES Negative Normal NEGATIVE [facility] Comment on above: Performed By: #### E RUR ####[facility] [address] [place], [place] [address]Dr. Aubrie Sadler Nitrite Ql (U) Negative Normal NEGATIVE [facility] Comment on above: Performed By: #### E RUR ####[facility] [address] [place], [place] [address]Dr. Aubrie Sadler pH (U) 5.0 [pH] Normal 5-9 [facility] Comment on above: Performed By: #### E RUR ####[facility] [address] [place], [place] [address]Dr. Aubrie Sadler SPEC GRAVITY 1.030 Abnormal 1.005-<=1.025 [facility] Comment on above: Performed By: #### E RUR ####[facility] [address] [place], [place] [address]Dr. Jasmyneling Doroteo UA PROTEIN Negative Normal NEGATIVE/ TRACE [facility] Comment on above: Performed By: #### E RUR ####[facility] [address] [place], [place] [address]Dr. Aubrie Sadler UR MICRO IND NOT INDICATED Normal [facility] Comment on above: Performed By: #### E RUR ####[facility] [address] [place], [place] [address]Dr. Aubrie Sadler Urobilinogen Qn (U) 0.2 {Julia'U}/dL Normal 0.2 - 1. 0 [facility] Comment on above: Performed By: #### E RUR ####[facility] [address] [address]Dr. Aubrie Sadler PROF 14(COMP METB)on 022 Albumin [Mass/Vol] 3.8 g/dL Normal 3.5-5.0 [facility] Comment on above: Performed By: #### C MP #### [facility] [address] [address] [address] Aubrie Sadler Albumin/Globulin [Mass ratio] 1.2 {ratio} Normal [facility] Comment on above: Performed By: #### C MP #### [facility] [address] [place] [address] Dr. Aubrie Sadler ALP [Catalytic activity/Vol] 73 U/L Normal 38-126 [facility] Comment on above: Performed By: #### C MP #### [facility] [address] [place] [address] Dr. Aubrie Sadler ALT [Catalytic activity/Vol] 20 U/L Critically low 21-72 [facility] Comment on above: Performed By: #### C MP #### [facility] [address] [place] [address] Dr. Aubrie Sadler Anion gap [Moles/Vol] 11.1 mmol/L Normal [facility] Comment on above: Performed By: #### C MP #### [facility] [address] [address] [address] Aubrie Sadler AST [Catalytic activity/Vol] 19 U/L Normal 17-59 [facility] Comment on above: Performed By: #### C MP #### [facility] [address] [place] [address] Dr. Aubrie Sadler Bilirubin [Mass/Vol] 1.5 mg/dL Critically high 0.2-1.3 [facility] Comment on above: Performed By: #### C MP #### [facility] [address] [place] [address] Dr. Aubrie Sadler Calcium [Mass/Vol] 8.9 mg/dL Normal 8.4-10.2 [facility] Comment on above: Performed By: #### C MP #### [facility] [address] [address] [address] Aubrie Sadler Chloride [Moles/Vol] 100 mmol/L Normal 98-107 [facility] Comment on above: Performed By: #### C MP #### [facility] [address] [address] [address] Aubrie Sadler CO2 [Moles/Vol] 28.8 mmol/L Normal 22.0-30.0 [facility] Comment on above: Performed By: #### C MP #### [facility] [address] [address] [address] Aubrie Sadler Creatinine [Mass/Vol] 1.72 mg/dL Critically high 0.66-1.25 [facility] Comment on above: Performed By: #### C MP #### [facility] [address] [address] [address] Aubrie Sadler EGFR-AF VENEZUELAN 46 mL/min/1.73m2 Critically low >=60 [facility] Comment on above: Performed By: #### C MP #### [facility] [address] [place] [address] Dr. Aubrie Sadler EGFR-NON AF VENEZUELAN 38 mL/min/1.73m2 Critically low >=60 [facility] Comment on above: Performed By: #### C MP #### [facility] [address] [address] [address] Aubrie Sadler Globulin (S) [Mass/Vol] 3.3 g/dL Normal [facility] Comment on above: Performed By: #### C MP #### [facility] [address] [address] [address] Aubrie Sadler Glucose [Mass/Vol] 125 mg/dL Critically high 74-106 [facility] Comment on above: Performed By: #### C MP #### [facility] [address] [address] [address] Aubrie Sadler Potassium [Moles/Vol] 3.9 mmol/L Normal 3.4-5.0 [facility] Comment on above: Performed By: #### C MP #### [facility] [address] [address] [address] Aubrie Sadler Protein [Mass/Vol] 7.1 g/dL Normal 6.1-8.2 [facility] Comment on above: Performed By: #### C MP #### [facility] [address] [address] [address] Aubrie Sadler Sodium [Moles/Vol] 136 mmol/L Critically low 137-145 [facility] Comment on above: Performed By: #### C MP #### [facility] [address] [place] [address] Dr. Aubrie Sadler Urea nitrogen [Mass/Vol] 27.0 mg/dL Critically high 9.0-20.0 [facility] Comment on above: Performed By: #### C MP #### [facility] [address] [place] [address] Dr. Aubrie Sadler Urea nitrogen/Creatinine [Mass ratio] 15.7 mg/mg Normal [facility] Comment on above: Performed By: #### C MP #### [facility] [address] [place] [address] Dr. Aubrie Sadler CBC AUTO DIFFon 04-16-2021 BASO # 0.0 103/ul Normal 0.0-0.1 [facility] Comment on above: Performed By: #### C BC ####[facility] [address] [address]Dr. Aubrie Sadler Basophils/100 WBC (Bld) 0.7 % Normal 0.2-2.0 [facility] Comment on above: Performed By: #### C BC ####[facility] [address] [address]Dr. Aubrie Sadler EO # 0.1 103/ul Normal 0.0-0.7 [facility] Comment on above: Performed By: #### C BC ####[facility] [address] [address]Dr. Aubrie Sadler Eosinophils/100 WBC (Bld) 2.4 % Normal 0.9-7.0 [facility] Comment on above: Performed By: #### C BC ####[facility] [address] [place], [place] [address]Dr. Aubrie Sadler Erythrocyte distribution width (RBC) [Ratio] 13.6 % Normal 11.0-15.0 [facility] Comment on above: Performed By: #### C BC ####[facility] [address] [place], [place] [address]Dr. Aubrie Sadler Hematocrit (Bld) [Volume fraction] 34.4 % Critically low 42.0-54.0 [facility] Comment on above: Performed By: #### C BC ####[facility] [address] [place], [place] [address]DrTadeo Sadler Hemoglobin (Bld) [Mass/Vol] 11.0 g/dL Critically low 14.0-18.0 [facility] Comment on above: Performed By: #### C BC ####[facility] [address] [place], [place] [address]Dr. Aubrie Sadler IG # 0.01 10e3/ul Normal 0.00-0.03 [facility] Comment on above: Performed By: #### C BC ####[facility] [address] [place], [place] [address]DrTadeo Sadler IG % 0.2 % Normal 0.0-0.5 [facility] Comment on above: Performed By: #### C BC ####[facility] [address] [place], [place] [address]DrTadeo Sadler LYMPH # 1.6 103/ul Normal 1.2-3.8 [facility] Comment on above: Performed By: #### C BC ####[facility] [address] [place], [place] [address]DrTadeo Sadler Lymphocytes/100 WBC (Bld) 29.3 % Normal 20.5-60.0 [facility] Comment on above: Performed By: #### C BC ####[facility] [address] [place], [place] [address]DrTadeo Sadler MANUAL DIFF REQ NO Normal [facility] Comment on above: Performed By: #### C BC ####[facility] [address] [id number]. Aubrie Sadler MCH (RBC) [Entitic mass] 29.9 pg Normal 25.9-34.0 [facility] Comment on above: Performed By: #### C BC ####[facility] [address] [address]DrTadeo Sadler MCHC (RBC) [Mass/Vol] 32.0 g/dL Normal 29.9-35.2 [facility] Comment on above: Performed By: #### C BC ####[facility] [address] [place], [place] [address]DrTadeo Sadler MCV (RBC) [Entitic vol] 93.5 fL Normal 80.0-94.0 [facility] Comment on above: Performed By: #### C BC ####[facility] [address] [place], [place] [address]DrTadeo Sadler MONO # 0.5 103/ul Normal 0.3-0.8 [facility] Comment on above: Performed By: #### C BC ####[facility] [address] [place], [place] [address]DrTadeo Sadler Monocytes/100 WBC (Bld) 9.5 % Normal 1.7-12.0 [facility] Comment on above: Performed By: #### C BC ####[facility] [address] [place], [place] [address]DrTadeo Sadler NEUT # 3.2 103/ul Normal 1.4-6.5 [facility] Comment on above: Performed By: #### C BC ####[facility] [address] [place], [place] [address]DrTadeo Sadler Neutrophils/100 WBC (Bld) 57.9 % Normal 43.0-75.0 [facility] Comment on above: Performed By: #### C BC ####[facility] [address] [place], [place] [address]DrTadeo Sadler Platelet mean volume (Bld) [Entitic vol] 10.0 fL Normal 9.5-13.5 [facility] Comment on above: Performed By: #### C BC ####[facility] [address] [address]Dr. Aubrie Sadler PLT 219 103/ul Normal 150-450 [facility] Comment on above: Performed By: #### C BC ####[facility] [address] [address]Dr. Aubrie Sadler RBC 3.68 106/ul Critically low 4.70-6.10 [facility] Comment on above: Performed By: #### C BC ####[facility] [address] [address]Dr. Aubrie Sadler WBC 5.5 103/ul Normal 4.0-11.0 [facility] Comment on above: Performed By: #### C BC ####[facility] [address] [address]Dr. Aubrie Sadler FERRITINon 04-16-2021 Ferritin [Mass/Vol] 32.0 ng/mL Normal 17.9-464.0 [facility] Comment on above: Performed By: #### F ERR #### [facility] [address] [place] [address] Dr. Aubrie Sadler OCC BLD IMMUNOASSAYon 2020 OCCULT BLOOD Negative Normal NEGATIVE [facility] Comment on above: Performed By: #### O FABRIZIO #### [facility] [address] [place] [address] Dr. Aubrie Sadler CBC AUTO DIFFon 01-23-2021 BASO # 0.0 103/ul Normal 0.0-0.1 [facility] Comment on above: Performed By: #### C BC #### [facility] [address] [place] [address] Dr. Aubrie Sadler Basophils/100 WBC (Bld) 0.7 % Normal 0.2-2.0 [facility] Comment on above: Performed By: #### C BC #### [facility] [address] [place] [address] Dr. Aubrie Sadler EO # 0.1 103/ul Normal 0.0-0.7 [facility] Comment on above: Performed By: #### C BC #### [facility] [address] [place] [address] Dr. Aubrie Sadler Eosinophils/100 WBC (Bld) 1.8 % Normal 0.9-7.0 [facility] Comment on above: Performed By: #### C BC #### [facility] [address] [place] [address] Dr. Aubrie Sadler Erythrocyte distribution width (RBC) [Ratio] 13.9 % Normal 11.0-15.0 [facility] Comment on above: Performed By: #### C BC #### [facility] [address] [place] [address] Dr. Aubrie Sadler Hematocrit (Bld) [Volume fraction] 34.6 % Critically low 42.0-54.0 [facility] Comment on above: Performed By: #### C BC #### [facility] [address] [place] [address] Dr. Aubrie Sadler Hemoglobin (Bld) [Mass/Vol] 11.4 g/dL Critically low 14.0-18.0 [facility] Comment on above: Performed By: #### C BC #### [facility] [address] [place] [address] Dr. Aubrie Sadler IG # 0.01 10e3/ul Normal 0.00-0.03 [facility] Comment on above: Performed By: #### C BC #### [facility] [address] [place] [address] Dr. Aubrie Sadler IG % 0.2 % Normal 0.0-0.5 [facility] Comment on above: Performed By: #### C BC #### [facility] [address] [place] [address] Dr. Aubrie Sadler LYMPH # 1.8 103/ul Normal 1.2-3.8 [facility] Comment on above: Performed By: #### C BC #### [facility] [address] [place] [address] Dr. Aubrie Sadler Lymphocytes/100 WBC (Bld) 31.4 % Normal 20.5-60.0 [facility] Comment on above: Performed By: #### C BC #### [facility] [address] [place] [address] Dr. Aubrie Sadler MANUAL DIFF REQ NO Normal [facility] Comment on above: Performed By: #### C BC #### [facility] [address] [place] [address] Dr. Aubrie Sadler MCH (RBC) [Entitic mass] 30.5 pg Normal 25.9-34.0 [facility] Comment on above: Performed By: #### C BC #### [facility] [address] [place] [address] Dr. Aubrie Sadler MCHC (RBC) [Mass/Vol] 32.9 g/dL Normal 29.9-35.2 [facility] Comment on above: Performed By: #### C BC #### [facility] [address] [place] [address] Dr. Aubrie Sadler MCV (RBC) [Entitic vol] 92.5 fL Normal 80.0-94.0 [facility] Comment on above: Performed By: #### C BC #### [facility] [address] [place] [address] Dr. Aubrie Sadler MONO # 0.6 103/ul Normal 0.3-0.8 [facility] Comment on above: Performed By: #### C BC #### [facility] [address] [place] [address] Dr. Aubrie Sadler Monocytes/100 WBC (Bld) 10.5 % Normal 1.7-12.0 [facility] Comment on above: Performed By: #### C BC #### [facility] [address] [place] [address] Dr. Aubrie Sadler NEUT # 3.1 103/ul Normal 1.4-6.5 [facility] Comment on above: Performed By: #### C BC #### [facility] [address] [place] [address] Dr. Aubrie Sadler Neutrophils/100 WBC (Bld) 55.4 % Normal 43.0-75.0 [facility] Comment on above: Performed By: #### C BC #### [facility] [address] [address] [address] Aubrie Sadler Platelet mean volume (Bld) [Entitic vol] 10.5 fL Normal 9.5-13.5 [facility] Comment on above: Performed By: #### C BC #### [facility] [address] [address] [address] Aubrie Sadler PLT 230 103/ul Normal 150-450 [facility] Comment on above: Performed By: #### C BC #### [facility] [address] [address] [address] Aubrie Sadler RBC 3.74 106/ul Critically low 4.70-6.10 [facility] Comment on above: Performed By: #### C BC #### [facility] [address] [address] [address] Aubrie Sadler WBC 5.6 103/ul Normal 4.0-11.0 [facility] Comment on above: Performed By: #### C BC #### [facility] [address] [address] [address] Aubrie Sadler FERRITINon 01-23-2021 Ferritin [Mass/Vol] 25.0 ng/mL Normal 17.9-464.0 [facility] Comment on above: Performed By: #### F OL, FETIBC, VITB12, FERR ####[facility] [address] [address]Dr. Aubrie Sadler FOLATEon 01-23-2021 FOLATE 16.70 ng/mL Normal >=2.76 [facility] Comment on above: Performed By: #### F OL, FETIBC, VITB12, FERR ####[facility] [address] [address]Dr. Aubrie Sadler IRON AND TIBCon 01-23-2021 % SATURATION 15.2 % Normal [facility] Comment on above: Performed By: #### F OL, FETIBC, VITB12, FERR ####[facility] [address] [id number]. Aubrie Sadler Iron [Mass/Vol] 54.0 ug/dL Normal 49.0-181.0 [facility] Comment on above: Performed By: #### F OL, FETIBC, VITB12, FERR ####[facility] [address] [id number]. Aubrie Sadler TIBC DIRECT 356.0 ug/dL Normal 261.0-497.0 [facility] Comment on above: Performed By: #### F OL, FETIBC, VITB12, FERR ####[facility] [address] [id number]. Aubrie Sadler VITAMIN B12on 01-23-2021 Cobalamin (Vitamin B12) [Mass/Vol] 380.0 pg/mL Normal 239.0-931.0 [facility] Comment on above: Performed By: #### F OL, FETIBC, VITB12, FERR ####[facility] [address] [address]Dr. Aubrie Sadler CBC AUTO DIFFon 10-23-2020 BASO # 0.1 103/ul Normal 0.0-0.1 [facility] Comment on above: Performed By: #### C BC #### [facility] [address] [id number] Marcus Rachel Basophils/100 WBC (Bld) 1.0 % Normal 0.2-2.0 [facility] Comment on above: Performed By: #### C BC #### [facility] [address] [id number] Marcus Rachel EO # 0.1 103/ul Normal 0.0-0.7 [facility] Comment on above: Performed By: #### C BC #### [facility] [address] [id number] Marcus Rachel Eosinophils/100 WBC (Bld) 2.0 % Normal 0.9-7.0 [facility] Comment on above: Performed By: #### C BC #### [facility] [address] [place], [place] [phone] Marcus Rachel Erythrocyte distribution width (RBC) [Ratio] 13.0 % Normal 11.0-15.0 [facility] Comment on above: Performed By: #### C BC #### [facility] [address] [place] [address] Marcus Ramos Hematocrit (Bld) [Volume fraction] 37.6 % Critically low 42.0-54.0 [facility] Comment on above: Performed By: #### C BC #### [facility] [address] [place] [address] Marcus Ramos Hemoglobin (Bld) [Mass/Vol] 12.3 g/dL Critically low 14.0-18.0 [facility] Comment on above: Performed By: #### C BC #### [facility] [address] [place] [address] Marcusbaldomero Ramos IG # 0.01 10e3/ul Normal 0.00-0.03 [facility] Comment on above: Performed By: #### C BC #### [facility] [address] [place] [address] Marcus Ramos IG % 0.2 % Normal 0.0-0.5 [facility] Comment on above: Performed By: #### C BC #### [facility] [address] [place] [address] Marcus Ramos LYMPH # 1.8 103/ul Normal 1.2-3.8 [facility] Comment on above: Performed By: #### C BC #### [facility] [address] [place] [address] Marcus Ramos Lymphocytes/100 WBC (Bld) 36.0 % Normal 20.5-60.0 [facility] Comment on above: Performed By: #### C BC #### [facility] [address] [place] [address] Marcus Ramos MANUAL DIFF REQ NO Normal [facility] Comment on above: Performed By: #### C BC #### [facility] [address] [place] [address] Marcus Ramos MCH (RBC) [Entitic mass] 30.4 pg Normal 25.9-34.0 [facility] Comment on above: Performed By: #### C BC #### [facility] [address] [place], [place] [phone] Marcus Ramos MCHC (RBC) [Mass/Vol] 32.7 g/dL Normal 29.9-35.2 [facility] Comment on above: Performed By: #### C BC #### [facility] [address] [place], [place] [phone] Marcusbaldomero Ramos MCV (RBC) [Entitic vol] 93.1 fL Normal 80.0-94.0 [facility] Comment on above: Performed By: #### C BC #### [facility] [address] [place] [address] Marcus Ramos MONO # 0.6 103/ul Normal 0.3-0.8 [facility] Comment on above: Performed By: #### C BC #### [facility] [address] [place] [address] Marcusbaldomero Farleyen Monocytes/100 WBC (Bld) 11.8 % Normal 1.7-12.0 [facility] Comment on above: Performed By: #### C BC #### [facility] [address] [place], [place] [phone] Marcus Ramos NEUT # 2.4 103/ul Normal 1.4-6.5 [facility] Comment on above: Performed By: #### C BC #### [facility] [address] [place], [place] [phone] Marcus Ramos Neutrophils/100 WBC (Bld) 49.0 % Normal 43.0-75.0 [facility] Comment on above: Performed By: #### C BC #### [facility] [address] [place], [place] [phone] Marcusbaldomero Ramos Platelet mean volume (Bld) [Entitic vol] 10.5 fL Normal 9.5-13.5 [facility] Comment on above: Performed By: #### C BC #### [facility] [address] [place], [place] [phone] Marcus Rachel PLT 233 103/ul Normal 150-450 [facility] Comment on above: Performed By: #### C BC #### [facility] [address] [place], [place] [address] Marcus Rachel RBC 4.04 106/ul Critically low 4.70-6.10 [facility] Comment on above: Performed By: #### C BC #### [facility] [address] [place], [place] [address] Marcus Rachel WBC 4.9 103/ul Normal 4.0-11.0 [facility] Comment on above: Performed By: #### C BC #### [facility] [address] [place], [place] [address] Marcus Rachel FERRITINon 10-23-2020 Ferritin [Mass/Vol] 21.0 ng/mL Normal 17.9-464.0 [facility] Comment on above: Performed By: #### F ERR #### [facility] [address] [place] [address] Marcus Rachel LIPID PROFILEon 10-23-2020 CHOL-HDL RATIO NORM SEE BELOW Normal [facility] Comment on above: Result Comment: 3.3 - 4.4 LOW RISK 4.4 - 7.1 AVERAGE RISK 7.1 - 11.0 MODERATE RISK >11.0 HIGH RISK Performed By: #### B MP, LIPID #### [facility] [address] [place] [address] Macrus Rachel Cholesterol [Mass/Vol] 131 mg/dL Normal <=200 [facility] Comment on above: Performed By: #### B MP, LIPID #### [facility] [address] [place], [place] [address] Marcus Rachel Cholesterol in HDL [Mass/Vol] 71 mg/dL Normal [facility] Comment on above: Performed By: #### B MP, LIPID #### [facility] [address] [place] [address] Marcus Rachel Cholesterol in LDL [Mass/Vol] 54.4 mg/dL Normal [facility] Comment on above: Performed By: #### B MP, LIPID #### [facility] [address] [place] [address] Marcus Rachel Cholesterol.total/Ch olesterol in HDL [Mass ratio] 1.8 {ratio} Normal [facility] Comment on above: Performed By: #### B MP, LIPID #### [facility] [address] [place], [place] [address] Marcus Rachel HDL NORMAL > or = 60 mg/dl - LOW CARDIOVASCULAR RISK <40 mg/dl - HIGH CARDIOVASCULAR RISK Normal [facility] Comment on above: Performed By: #### B MP, LIPID #### [facility] [address] [phone] Marcus Rachel LDL CALC NORMAL SEE BELOW Normal [facility] Comment on above: Result Comment: <100 mg/dl OPTIMAL 100 - 129 mg/dl NEAR OR ABOVE OPTIMAL 130 - 159 mg/dl BORDERLINE HIGH 160 - 189 mg/dl HIGH >190 mg/dl VERY HIGH Performed By: #### B MP, LIPID #### [facility] [address] [place] [address] Marcus Rachel Triglyceride [Mass/Vol] 28 mg/dL Normal <=150 [facility] Comment on above: Performed By: #### B MP, LIPID #### [facility] [address] [place], [place] [phone] Marcus Rachel VLDL CALC 5.6 mg/dL Normal [facility] Comment on above: Performed By: #### B MP, LIPID #### [facility] [address] [place], [place] [phone] Marcus Rachel PROF CHEM 8 (BAS METB)on Anion gap [Moles/Vol] 9.7 mmol/L Normal [facility] Comment on above: Performed By: #### B MP, LIPID #### [facility] [address] [place], [place] [phone] Marcus Rachel Calcium [Mass/Vol] 8.9 mg/dL Normal 8.4-10.2 [facility] Comment on above: Performed By: #### B MP, LIPID #### [facility] [address] [place], [place] [phone] Marcus Rachel Chloride [Moles/Vol] 104 mmol/L Normal 98-107 [facility] Comment on above: Performed By: #### B MP, LIPID #### [facility] [address] [address] Marcus Rachel CO2 [Moles/Vol] 30.9 mmol/L Critically high 22.0-30.0 [facility] Comment on above: Performed By: #### B MP, LIPID #### [facility] [address] [address] Marcus Rachel Creatinine [Mass/Vol] 1.19 mg/dL Normal 0.66-1.25 [facility] Comment on above: Performed By: #### B MP, LIPID #### [facility] [address] [address] Marcus Rachel EGFR-AF VENEZUELAN >60 Normal >=60 [facility] Comment on above: Performed By: #### B MP, LIPID #### [facility] [address] [address] Marcus Rachel EGFR-NON AF VENEZUELAN 58 mL/min/1.73m2 Critically low >=60 [facility] Comment on above: Performed By: #### B MP, LIPID #### [facility] [address] [address] Marcus Rachel Glucose [Mass/Vol] 93 mg/dL Normal 74-106 [facility] Comment on above: Performed By: #### B MP, LIPID #### [facility] [address] [address] Marcus Rachle Potassium [Moles/Vol] 3.6 mmol/L Normal 3.4-5.0 [facility] Comment on above: Performed By: #### B MP, LIPID #### [facility] [address] [address] Marcus Rachel Sodium [Moles/Vol] 141 mmol/L Normal 137-145 [facility] Comment on above: Performed By: #### B MP, LIPID #### [facility] [address] [address] Marcus Rachel Urea nitrogen [Mass/Vol] 14.0 mg/dL Normal 9.0-20.0 [facility] Comment on above: Performed By: #### B MP, LIPID #### [facility] [address] [place], [place] [address] Marcus Ramos Urea nitrogen/Creatinine [Mass ratio] 11.8 mg/mg Normal [facility] Comment on above: Performed By: #### B MP, LIPID #### [facility] [address] [place], [place] [address] Marcus Ramos Vital Signs Date Time Vital Sign Value Performing Clinician Facility 08-02-2023 11:18-0400 Body height 175.26 cm [facility] 08-02-2023 11:18-0400 Body mass index (BMI) [Ratio] 24.7 kg/m2 [facility] 08-02-2023 11:18-0400 Body weight 75.97 kg [facility] 08-02-2023 11:18-0400 Diastolic blood pressure 67 mm[Hg] [facility] 08-02-2023 11:18-0400 Heart rate 77 /min [facility] 08-02-2023 11:18-0400 Respiratory rate 12 /min [facility] 08-02-2023 11:18-0400 Systolic blood pressure 130 mm[Hg] [facility] 05-18-2023 09:15-0500 Body height 175.26 cm Jaison Ball Other [facility] 05-18-2023 09:15-0500 Body mass index (BMI) [Ratio] 25.25 kg/m2 Jaison Ball Other [facility] Other 05-18-2023 09:15-0500 Body weight 77.57 kg Jaison Ball Other [facility] Other 05-18-2023 09:15-0500 Body weight 77.56 kg [facility] 05-18-2023 09:15-0500 Diastolic blood pressure 76 mm[Hg] Jaison Ball Other [facility] 05-18-2023 09:15-0500 Respiratory rate 12 /min Jaison Ball Other [facility] Other 05-18-2023 09:15-0500 Systolic blood pressure 142 mm[Hg] Jaison Ball Other [facility] 02-01-2023 11:00-0400 Body height 175.26 cm Jaison Ball Other [facility] Other 02-01-2023 11:00-0400 Body mass index (BMI) [Ratio] 25.13 kg/m2 Jaison Ball Other [facility] Other 02-01-2023 11:00-0400 Body weight 77.2 kg Jaison Ball Other [facility] Other 02-01-2023 11:00-0400 Diastolic blood pressure 67 mm[Hg] Jaison Ball Other [facility] Other 02-01-2023 11:00-0400 Respiratory rate 12 /min Jaison Ball Other [facility] Other 02-01-2023 11:00-0400 Systolic blood pressure 122 mm[Hg] Jaison Ball Other [facility] Other 11-03-2022 13:45-0400 Body height 175.26 cm Jaison Ball Other [facility] Other 11-03-2022 13:45-0400 Body mass index (BMI) [Ratio] 25.1 kg/m2 Jaison Ball Other [facility] Other 11-03-2022 13:45-0400 Body weight 77.11 kg Jaison Ball Other [facility] Other 11-03-2022 13:45-0400 Diastolic blood pressure 56 mm[Hg] Jaison Ball Other [facility] Other 11-03-2022 13:45-0400 Respiratory rate 12 /min Jaison Ball Other [facility] Other 11-03-2022 13:45-0400 Systolic blood pressure 108 mm[Hg] Jaison Ball Other [facility] Other 08-03-2022 12:00-0400 Body height 175.26 cm Jaison Ball Other [facility] Other 08-03-2022 12:00-0400 Body mass index (BMI) [Ratio] 25.04 kg/m2 Jaison Ball Other [facility] Other 08-03-2022 12:00-0400 Body weight 76.93 kg Jaison Ball Other [facility] Other 08-03-2022 12:00-0400 Diastolic blood pressure 66 mm[Hg] Jaison Ball Other [facility] Other 08-03-2022 12:00-0400 Respiratory rate 12 /min Jaison Ball Other [facility] Other 08-03-2022 12:00-0400 Systolic blood pressure 114 mm[Hg] Jaison Ball Other [facility] Other 06-24-2022 11:00-0500 Body height 175.26 cm Jaison Ball Other [facility] Other 06-24-2022 11:00-0500 Body mass index (BMI) [Ratio] 25.28 kg/m2 Jaison Ball Other [facility] Other 06-24-2022 11:00-0500 Body weight 77.66 kg Jaison Ball Other [facility] Other 06-24-2022 11:00-0500 Diastolic blood pressure 70 mm[Hg] Jaison Ball Other [facility] Other 06-24-2022 11:00-0500 Respiratory rate 12 /min Jaison Ball Other [facility] Other 06-24-2022 11:00-0500 Systolic blood pressure 118 mm[Hg] Jaison Ball Other [facility] Other Encounters Encounter Date Encounter Type Care Provider Facility Start: 08-02-2023 End: 08-02-2023 ambulatory [facility] Work Phone: Start: 08-02-2023 End: 08-02-2023 Patient encounter procedure [facility] Work Phone: Start: 06-27-2023 End: 06-27-2023 ambulatory STACEY A PETITTI Not Available Start: 05-26-2023 End: 05-26-2023 ambulatory STACEY A PETITTI Not Available Start: 05-18-2023 End: 05-18-2023 ambulatory Jaison Ball Other [facility] Other Start: 05-18-2023 Office outpatient vi sit 15 minutes Jaison Ball [facility] Start: 05-18-2023 End: 05-18-2023 Patient encounter procedure [facility] Work Phone: Start: 03-25-2023 End: 03-25-2023 ambulatory Jaison Ball Other [facility] Other Start: 03-25-2023 Office outpatient vi sit 15 minutes Jaison Ball [facility] Start: 02-10-2023 End: 02-10-2023 ambulatory Jaison Ball Other [facility] Other Start: 02-10-2023 Telephone encounter Jaison Ball [facility] Start: 02-01-2023 End: 02-01-2023 ambulatory Jaison Nuno Other [facility] Other Start: 02-01-2023 Patient encounter procedure Jaison Nuno [facility] Start: 11-03-2022 End: 11-03-2022 ambulatory Jaison Nuno Other [facility] Other Start: 11-03-2022 Office outpatient vi sit 15 minutes Jaison Nuno [facility] Start: 08-03-2022 End: 08-03-2022 ambulatory Jaison Nuno Other [facility] Other Start: 08-03-2022 Office outpatient vi sit 25 minutes Jaison Nuno [facility] Start: 06-24-2022 End: 06-24-2022 ambulatory Jaison Nuno Other [facility] Other Start: 06-24-2022 Office outpatient vi sit 15 minutes Jaison Nuno [facility] Start: 05-30-2021 End: 05-31-[address] JAISON NUNO Facility:[facility] Start: 04-16-2021 End: 04-17-[address] JAISON NUNO Facility:[facility] Start: 01-28-2021 End: 01-28-[address] JAISON NUNO Facility:[facility] Start: 01-23-2021 End: 01-24-[address] JAISON NNUO Facility:[facility] Start: 10-23-2020 End: 10-24-[address] JAISON NUNO Facility:[facility] Start: 07-08-2020 End: 07-09-[address] ESTRADA LISTED REQUEST Facility:[facility] Start: 06-10-2020 End: 06-11-2020 ambulatory AMY MCCOLLUM Facility:[facility] Immunizations Immunization Date Immunization Notes Care Provider Fa marilia 02-01-2023 influenza virus vaccine, unspecified formulation [facility] 02-01-2023 influenza, high dose seasonal, preservative-free Jaison Nuno Other [facility] Other 02-27-2022 COVID-19 Pfizer (Pediatric) Jaison Nuno Other [facility] 01-26-2022 influenza virus vaccine, split virus (incl. purified surface antigen) Jaison Nuno Other [facility] Other 01-26-2022 influenza virus vaccine, unspecified formulation [facility] 10-29-2021 pneumococcal polysaccharide vaccine, 23 valent Jaison Nuno Other [facility] 02-17-2021 influenza virus vaccine, split virus (incl. purified surface antigen) Jaison Nuno Other [employer] Other 02-17-2021 influenza virus vaccine, unspecified formulation [facility] 02-06-2020 influenza virus vaccine, split virus (incl. purified surface antigen) Jaison Nuno Other [facility] Other 02-06-2020 influenza virus vaccine, unspecified formulation [facility] 02-21-2019 influenza virus vaccine, split virus (incl. purified surface antigen) Jaison Nuno Other [employer] Other 02-21-2019 influenza virus vaccine, unspecified formulation [facility] 02-10-2018 influenza virus vaccine, split virus (incl. purified surface antigen) Jaison Nuno Other [facility] Other 02-10-2018 influenza virus vaccine, unspecified formulation [facility] 03-02-2017 influenza virus vaccine, split virus (incl. purified surface antigen) Jaison Nuno Other [employer] Other 03-02-2017 influenza virus vaccine, unspecified formulation [facility] 02-20-2016 pneumococcal conjuga te vaccine, 13 valent Jaison Nuno Other [facility] 02-12-2016 influenza virus vaccine, split virus (incl. purified surface antigen) Jaison Yaniv Other [facility] Other 02-12-2016 influenza virus vaccine, unspecified formulation [facility] 02-28-2015 influenza virus vaccine, split virus (incl. purified surface antigen) Jaison Nuno Other [facility] Other 02-28-2015 influenza virus vaccine, unspecified formulation [facility] 02-05-2014 tetanus and diphther ia toxoids, adsorbed, preservative free, for adult use (5 Lf of tetanus toxoid and 2 Lf of diphtheria toxoid) Jaison Nuno Other [facility] 01-24-2013 tetanus and diphther ia toxoids, adsorbed, preservative free, for adult use (5 Lf of tetanus toxoid and 2 Lf of diphtheria toxoid) Jaison Nuno Other [facility] 04-13-1995 pneumococcal polysaccharide vaccine, 23 valent Jaison Nuno Other [facility] Payers Date Payer Category Payer Unknown [id number] 1959 Medicare [id number] 1959 Self-pay 1959 Unknown [id number] 1935 Unknown [id number] 2.16.84 [id number] 1935 Unknown [id number] 2.16.84 [id number] 1935 Unknown [id number] 2.16.84 [id number] 1935 Unknown [id number] 2.16.84 [id number] 1935 Unknown [id number] 2.16.84 [id number] 1935 Unknown [id number] 2.16.84 [id number] 1935 Unknown [id number] 2.16.84 [id number] Unknown [id number] 2.16.84 [id number] Unknown [id number] 2.16.84 [id number] Social History Date Type Detail Facility Unknown if ever smoked [facility] Other Sex Assigned At Sex Assigned At Bir th [employer] Other Start: 05-18-2023 Tobacco smoking status NHIS Ex-smoker (finding) 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 May, Trigger ring finger of right hand (ICD-10 - M65.341) Soak in warm water, Voltaren Gel. Discussed injection or surgery, which would require referral to [facility]oped[facility] Other Evaluation note 03-25-2023 Note Date & [...] in the past has resulted in AF. [facility] Other Evaluation note 02-01-2023 Note Date & [...] are maintaining regular scheduled appts with their parker. No bleeding complications Jan, Primary hypertension (ICD-10 [...] of antibiotics. Suspect spermatocele/veri cocele US ordered [facility] Other Evaluation note 11-03-2022 Note Date & Type Note Facility 11-03-2022 Evaluation note Encounter Date Diagnosis Assessment Notes Oct, Epididymoorchitis (ICD-10 - N45.3) No s/s torsion or testicular mass No s/s hernia Avoid strenuous activity. Supportive garments. Push fluids Begin antibiotics. Oct, Left nephrolithiasis (ICD-10 - N20.0) Push fluids Avoid dark pop. f/u Urology [facility] Other Evaluation note 08-03-2022 Note Date & Type Note Facility 08-03-2022 Evaluation note Encounter Date Diagnosis Assessment Notes Jul, Paroxysmal atrial fibrillation (ICD-10 - I48.0) This patient is in NSR or rate controlled. This patient is anticoagulated to prevent thromboembolic events. They are maintaining regular scheduled appts with their parker. Jul, Primary hypertension (ICD-10 - I10) This [...] labs due next month, will await results [facility] Other Evaluation note 06-24-2022 Note Date & [...] are maintaining regular scheduled appts with their parker. 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 Lumbar spondylosis acute Nonischemic cardiomyopathy a [facility] Work Phone: History general Narrative - [...] PACEMAKER 20 20 Hospitalization History see above PricePanda Other Summary Purpose Family History Relationship Condition [...] DATE CREATED AUTHOR AUTHOR'S ORGANNELA ATION 06/27/2023 [facility] EPIC REASON FOR VISIT (unrecogniz ed section and content) PAIN IN FOREARM6 MONTH FOLLO W UPSwelling/Pain in TesticleMWEUS [phone] phone call only, hoarsenessBump on bridge of [...] BE BASED ON THE PRIMARY CLINICAL RECORDS. [employer] provides no warranty or guarantee of the accuracy or completeness of information in this document.
--- NOTE | 2023-09-23 15:06 | CM.DCFOLLOWU ---
1st attempt, 09/23/23 no answer
--- NOTE | 2023-09-26 11:19 | CM.DCFOLLOWU ---
Person spoke with: patient How are you feeling? a little unsteady, but takes time to get up and balance out before walking How is your pain? no pain Did you understand your discharge instructions? yes Do you have any questions about your discharge instructions? no Were you given any prescriptions at discharge? yes Were you able to get your prescriptions filled? yes Do you understand how to take your medications as ordered? yes Do you have any questions about your follow up appointment and do you plan to keep your follow up appointment? no questions, follow up today with Dr. Purvis Is there anything else that you would like to discuss? no Questions/Comments/Concerns/Other: N/A
== END 2023-09-22 11:42 | disposition home or self-care (01) | DRG 872 ==
LOC: ER 20:13 → ICU 21:43 → MS 09-21 12:09 → ICU 09-23 11:45 → MS 09-23 11:45
PROVIDERS: Family Medicine; Physician Assistant; Registered Nurse; Admitting Provider Nurse Practitioner; Emergency Provider Emergency Medicine Emergency Medical Services; PCP Internal Medicine; Visit Provider Nurse Practitioner
DX: A41.9 Sepsis, unspecified organism (principal); N17.9 Acute kidney failure, unspecified; I42.8 Other cardiomyopathies; R55 Syncope and collapse; K52.9 Noninfective gastroenteritis and colitis, unspecified; E86.0 Dehydration; I65.23 Occlusion and stenosis of bilateral carotid arteries; I48.0 Paroxysmal atrial fibrillation; N18.31 Chronic kidney disease, stage 3a; I12.9 Hypertensive chronic kidney disease with stage 1 through stage 4 chronic kidney disease, or unspecified chronic kidney disease; R65.20 Severe sepsis without septic shock; Z95.0 Presence of cardiac pacemaker; Z91.81 History of falling; Z79.899 Other long term (current) drug therapy; Z79.01 Long term (current) use of anticoagulants; Z87.891 Personal history of nicotine dependence; Z98.890 Other specified postprocedural states; Z86.03 Personal history of neoplasm of uncertain behavior
CPT/HCPCS: 36415; 70450; 71045; 72125; 73030; 74176; 80048; 80053; 81001; 82800; 83605; 84145; 84443; 84484; 85025; 85610; 87040; 87507; 93005; 93880; 96361; 96365; 96366; 96367; 96368; 97161; 97165; 99285; G0378

== ENCOUNTER 2023-10-05 09:17 | Outpatient (OUT) | payer MEDICARE, OTHER, SELFPAY ==
[2023-10-05 09:54] LABS: Basophils Absolute Auto 0.1 10^3/uL (0.0-0.1); Basophils Percent Auto 0.9 % (0.2-2.0); Eosinophils Absolute Auto 0.1 10^3/uL (0.0-0.7); Eosinophils Percent Auto 1.6 % (0.9-7.0); Hematocrit 37.1 % (42.0-54.0); Hemoglobin 11.9 g/dL (14.0-18.0); Immature Granulocytes Abs Auto 0.02 10^3/uL (0.00-0.03); Immature Granulocytes Pct Auto 0.3 % (0.0-0.5); Lymphocytes Absolute Auto 1.4 10^3/uL (1.2-3.8); Lymphocytes Percent Auto 23.3 % (20.5-60.0); Mean Corpuscular HGB Conc 32.1 g/dL (29.9-35.2); Mean Corpuscular Hemoglobin 32.3 pg (25.9-34.0); Mean Corpuscular Volume 100.8 fL (80.0-94.0); Mean Platelet Volume 10.1 fL (9.5-13.5); Monocytes Absolute Auto 0.6 10^3/uL (0.3-0.8); Monocytes Percent Auto 10.5 % (1.7-12.0); Neutrophils Absolute Auto 3.7 10^3/uL (1.4-6.5); Neutrophils Percent Auto 63.4 % (43.0-75.0); Platelet Count 304 10^3/uL (150-450); Red Blood Count 3.68 10^6/uL (4.70-6.10); Red Cell Distribution Width 13.4 % (11.0-15.0); White Blood Count 5.8 10^3/uL (4.0-11.0)
[2023-10-05 10:42] LABS: Erythrocyte Sedimentation Rate 82 mm/hr (<=20)
[2023-10-05 10:43] LABS: Alanine Aminotransferase 28 U/L (16-63); Albumin Globulin Ratio 0.8; Albumin Level 3.2 g/dL (3.4-5.0); Alkaline Phosphatase 89 U/L (46-116); Anion Gap 8.1; Aspartate Amino Transferase 30 U/L (15-37); BUN Creatinine Ratio 8.5; Bilirubin Total 0.9 mg/dL (0.2-1.0); Calcium 8.7 mg/dL (8.5-10.1); Carbon Dioxide 31.9 mmol/L (21.0-32.0); Chloride 106 mmol/L (98-107); Estimated GFR (African America >60 (>=60); Estimated GFR (Non-African Ame 58 (>=60); Glucose 91 mg/dL (74-106); Sodium 142 mmol/L (136-145); Thyroid Stimulating Hormone 1.609 uIU/mL (0.358-3.740); Total Protein 7.2 g/dL (6.4-8.2)
== END 2023-10-05 09:18 | disposition home or self-care (01) ==
LOC: LAB 09:18
PROVIDERS: PCP Internal Medicine; Visit Provider Internal Medicine
DX: K52.9 Noninfective gastroenteritis and colitis, unspecified (principal); I42.8 Other cardiomyopathies; I48.91 Unspecified atrial fibrillation; I10 Essential (primary) hypertension
CPT/HCPCS: 36415; 80053; 84443; 85025; 85652

== ENCOUNTER 2024-03-14 09:53 | Outpatient (OUT) | payer MEDICARE, OTHER, SELFPAY ==
--- OUTSIDE RECORDS SUMMARY | 2024-03-14 10:16 | XMS_ITS | CCD ---
Author Organization [facility] Care Team Providers Care Technical Operations Manager Name Role Phone YANIV, DR BLACKWOOD Primary [...] BALL, DR BLACKWOOD Primary Care Unavailable REQUEST, NONE LISTED Admitting Unavaila ble REQUEST, DR ESTRADA LISTED Attending Unavaila ble ROSSAMY Consulting Unavailable REQUEST, NONE LISTED Admitting Unavaila ble BALL, DR BLACKWOOD Primary Care Unavailable REQUEST, NONE LISTED Attending Unavaila ble REQUEST, NONE LISTED Consulting Unavaila ble Yaniv, Jaison Unavailable STACEY JACOBS Attending Unavailable STACEY JACOBS Attending Unavailable BELTRAN DUQUE Attending Unavailable JAISON PURVIS Referring Unavailable BALL, JAISON Novak Primary Care Unavailable Ball , Jaison Novak Primary Care Provider BELTRAN DUQUE Attending Unavailable BELTRAN DUQUE Referring Unavailable BALL, JAISON Novak Primary Care Unavailable BALL, JAISON Novak Referring Unavailable BALL, JAISON Novak Primary Care Unavailable POOL RINCON Attending Unavail able YANIV, JAISON Novak Referring Unavailable BALL, JAISON Novak Primary Care Unavailable MANJEET LUNA Referring Unavailable BALL, JAISON Novak Primary Care Unavailable Allergies Allergy Classification Reported Allergen(s) Allergy Type Date of Onset Reaction(s) Facility (1 source) dronedarone Drug Allergy [facility] (6 sources) Morphine; 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: [MORPHINE] Drug Allergy Vomiting [facility] (6 sources) Penicillins; 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: [PENICILLINS] Drug allergy (disorder) Hives [facility] (1 source) Sulfonamides (Antibiotic) Drug allergy (disorder) [facility] (13 sources) Ciprofloxacin; 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: [CIPROFLOXACIN] Drug Allergy Unknown, Unknown Reaction [facility] (16 sources) dronedarone; 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: [DRONEDARONE] Drug Allergy Other (See Comments) [facility] (10 sources) Morphine Drug Allergy Other (See Comments), Vomiting [facility] Other (3 sources) Penicillin Drug Allergy Unknown [facility] Other (1 source) Morphine Drug Allergy Unknown [facility] Other (4 sources) Substance with penicillin structure and antibacterial mechanism of action (substance) Drug allergy Unknown [facility] Other (8 sources) Substance with sulfonamide structure and antibacterial mechanism of action (substance) Drug allergy GI Disturbance [facility] Other (5 sources) Sulfonamides (Antibiotic); 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: [SULFA (SULFONAMIDE ANTIBIOTICS)] Allergy to substance Gastrointestinal Upset [facility] (6 sources) tomato allergenic extract; 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: [TOMATO] Drug Allergy [facility] (4 sources) Penicillins Propensity to adverse reactions to drug Rash [facility] Medications Current Medications Medication Drug Class(es) Dates Sig (Normalized) Sig (Original) apixaban 5 mg oral tablet (17 sources) Factor Xa Inhibitor Start: 08-02-2023 take 5 mg by mouth once daily Apixaban Active 5 MG PO Daily August 02, 2023 12:00am Start: 04-01-2020 End: 04-02-2020 take 1 tablet by mouth twice daily Apixaban (Eliquis) 5 mg Tablet Discontinued 5 MG PO Twice daily April 01, 2020 1:00am April 02, 2020 11:56am atorvastatin 10 mg oral tablet (14 sources) HMG-CoA Reductase Inhibitor Start: 04-01-2020 take 10 mg by mouth once daily Atorvastatin Active 10 MG PO Daily April 01, 2020 1:00am Carboxymethylcellulose (1 source) take 1 drop(s) into the eye(s) three times daily carboxymethylcellulose sodium (REFRESH OPHT) Instill 1 drop to eye 3 (three) times a day. Active cranberry conc-ascorbic acid 4,200-20 mg capsule (4 sources) take 1 capsule by mouth in the morning cranberry conc-ascorbic acid 4,200-20 mg capsule Take 1 capsule by mouth in the morning. Active 24 hr dilTIAZem hydrochloride 180 mg extended release oral capsule (20 sources) Calcium Channel Hafsa Start: 04-02-2020 End: 08-02-2023 take 1 capsule by mouth once daily dilTIAZem CD (CARDIZEM CD) 180 mg 24 hr capsule Take 1 capsule (180 mg total) by mouth daily. 60 capsule 6 04/15/2020 Active Start: 04-01-2020 End: 04-02-2020 take 1 capsule [...] Active flecainide acetate 100 mg oral tablet (14 sources) Antiarrhythmic Start: 08-02-2023 take 50 mg by mouth every twelve hours Flecainide Active 50 MG PO Every 12 hours August 02, 2023 12:00am Start: 02-13-2021 take 1 tablet by wei th twice daily flecainide (TAMBOCOR) 100 mg tablet Take 1 tablet (100 mg total) by mouth 2 (two) times a day. 180 tablet 3 02/13/2021 Active take 0.5 tablet by m outh every twelve hours Flecainide Acetate 100 MG 0.5 tablet Orally every 12 hrs Active gramicidin 0.025 mg/ml / neomycin 1.75 mg/ml / polymyxin b [id number] unt/ml ophthalmic solution (1 source) Aminoglycoside Antibacterial, Polymyxin-class Antibacterial Start: 05-18-2023 Zezsvtbn-[id number]-Ubzzjogvp n [id number] 1 drop into affected eye Ophthalmic every 4 hrs, while awake for 7 days May, Active herbal drugs capsule (5 sources) herbal drugs cap jose c Take by mouth. Balance of Nature Active herbal drugs cap jose c daily. Ginseng 100 mg Active hydroCHLOROthiazide 12.5 mg oral tablet (2 sources) Thiazide Diuretic Start: 10-21-2023 take 1 tablet by mouth once daily hydroCHLOROthiazide (HYDRODIURIL) 12.5 mg tablet Take 1 tablet (12.5 mg total) by mouth daily. 10/21/2023 Active ipratropium bromide 0.042 mg/actuat metered dose nasal spray (14 sources) Anticholinergic Start: 04-01-2020 Ipratropium [place] Active 42 MCG INTRANASAL Twice daily April 01, 2020 1:00am Start: 09-20-2016 take 1 spray(s) nasa l route in the morning ipratropium (ATROVENT) 0.06 % nasal spray Administer 1 spray into each nostril in the morning and 1 spray before bedtime. 11 09/20/2016 Active Ipratropium Brom silvana Active lisinopril 5 mg oral tablet (7 sources) Angiotensin Converting Enzyme Inhibitor Start: 10-21-2023 take 1 tablet by mouth in the morning lisinopriL (PRINIVIL,ZESTRIL) 5 mg tablet Take 1 tablet (5 mg total) by mouth in the morning. 10/21/2023 Active Start: 09-23-2023 End: 10-21-2023 take 10 mg by mouth once daily Lisinopril Discontinued 10 MG PO Daily September 23, 2023 12:00am October 21, 2023 2:59pm olopatadine 1 mg/ml ophthalmic solution (1 source) Histamine-1 Receptor Inhibitor take 1 drop(s) into the eye(s) in the morning olopatadine (PATANOL) 0.1 % ophthalmic solution Administer 1 drop to both eyes in the morning and 1 drop before bedtime. Active omeprazole 20 mg delayed release oral capsule (20 sources) Proton Pump Inhibitor Start: 04-01-20 take 20 mg by mouth once daily Omeprazole Active 20 MG PO Daily April 01, 2020 1:00am polysaccharide iron complex 150 mg oral capsule (15 sources) Start: 08-02-19 End: 10-06-19 Polysaccharide Iron Complex (Iferex 150) 150 mg iron capsule Discontinued 150 MG PO Daily August 02, 2023 12:00am October 06, 2023 3:19pm Start: 01-29-2021 take 1 capsule by mo uth every other day IFEREX 150 150 mg iron capsule Take 1 capsule (150 mg total) by mouth every other day. 01/29/2021 Active take 1 capsule by mo uth every other day IFerex 150 150 MG TAKE 1 CAPSULE BY MOUTH EVERY OTHER DAY for 30 Active take 1 capsule by mo uth every twenty-four hours Ferrex 150 150 MG [...] Drug Class(es) Dates Sig (Normalized) Sig (Original) ALOE VERA ORAL (4 sources) End: 02-29-2024 take 600 mg by mouth in the evening ALOE VERA ORAL Take 600 mg by mouth in the evening. 02/29/2024 Discontinued (Patient Stopped On Own) take 600 mg by mouth in the even ing ALOE VERA ORAL Take 600 mg by mouth in the evening. Active Aloe Vera (3 sources) Start: 04-01-2020 End: 08-02-2023 take 25 mg by mouth once daily Aloe Vera Discontinued 25 MG PO Daily April 01, 2020 1:00am August 02, 2023 8:15am amiodarone hydrochloride 200 mg oral tablet (3 sources) Antiarrhythmic Start: 04-02-2020 End: 08-02-2023 take 200 mg by mouth twice daily Amiodarone Discontinued 200 MG PO Twice daily 60 April 02, 2020 1:00am August 02, 2023 8:15am ascorbic acid 500 mg oral tablet (7 sources) Vitamin C Start: 04-01-2020 End: 08-02-2023 take 1 tablet by mouth once daily Ascorbic Acid (Vitamin C) (Vitamin C) 500 mg Tablet Discontinued 500 MG PO Daily April 01, 2020 1:00am August 02, 2023 8:16am Bilberry (7 sources) Start: 04-01-2020 End: 08-02-2023 take 100 mg by mouth twice daily Bilberry Discontinued 100 MG PO Twice daily April 01, 2020 1:00am August 02, 2023 8:16am take 1 capsule by mouth once sawyer ly bilberry 100 mg capsule Take 100 mg by mouth daily. Active ciprofloxacin 500 mg oral tablet (2 sources) Quinolone Antimicrobial Start: 09-23-2023 End: 02-03-2024 take 1 tablet by mouth twice daily Ciprofloxacin Hcl (Cipro) 500 mg tablet Discontinued 500 MG PO Twice daily September 23, 2023 12:00am February 03, 2024 9:59am Garlic (7 sources) Non-Standardized Food Allergenic Extract Start: 04-01-2020 End: 08-02-2023 take 1000 mg by mouth after mealtime Garlic Discontinued 1000 MG PO after meals April 01, 2020 1:00am August 02, 2023 8:16am garlic 1,000 mg capsule Take by mouth daily. Active hydroCHLOROthiazide 12.5 mg / lisinopril 10 mg oral tablet (20 sources) Thiazide Diuretic, Angiotensin Converting Enzyme Inhibitor Start: 10-21-2023 End: 10-21-2023 take 1 tablet by mouth once daily Lisinopril-Hydrochlorothiazide Discontinued 1 TAB PO Daily October 21, 2023 12:00am October 21, 2023 4:23pm Start: 08-02-2023 End: 09-23-2023 take 1 tablet by mouth once daily Lisinopril-Hydrochlorothiazide Discontin ued 1 TAB PO Daily August 02, 2023 12:00am September 23, 2023 2:40pm FreeTextSi tablet Orally Once a day; Note: Source Status: Taking; Provider: Yaniv Blackwood ( ) Start: 02-07-2021 End: 02-29-2024 take 10-12.5 mg by mouth once in the morning lisinopril-hydroCHLOROthiazide (PRINZIDE,ZESTORETIC) 10-12.5 mg per tablet Take 1 tablet by mouth in the morning. 02/07/2021 02/29/2024 Discontinued (Discontinued by another clinician) Start: 04-01-2020 End: 08-02-2023 take 1 tablet by mouth once daily Lisinopril-Hydrochlorothiazide Discontin ued 1 TAB PO Daily April 01, 2020 1:00am August 02, 2023 8:16am take 1 tablet by wei th every twenty-four hours Lisinopril-hydroCHLOROthiazide 10-12.5 M G 1 tablet Orally Once a day Active 24 hr metoprolol succinate 50 mg extended release oral tablet (7 sources) beta-Adrenergic Hafsa take 1 tablet by mouth every twenty-four hours Metoprolol Succinate ER 50 MG 1 tablet Orally Once a day Not-Taking/PRN metroNIDAZOLE 500 mg oral tablet (2 sources) Nitroimidazole Antimicrobial Start: 2023 End: 2023 take 500 mg by mouth twice daily Metronidazole Discontinued 500 MG PO Twice daily September 23, 2023 12:00am February 03, 2024 9:58am Problems Active Problems Problem Classification Problem Date Documented Date Episodic/Chronic Cardiac dysrhythmias (20 sources) Paroxysmal atrial fibrillation; 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: [Paroxysmal atrial fibrillation] Onset: 04-21-2015 Resolved: 06-17-2017 Chronic Conditions associated with dizziness or vertigo (1 source) Dizziness Onset: 02-29-2024 Episodic Conduction disorders (20 sources) Cardiac pacemaker in situ; 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: [Presence of cardiac pacemaker] Onset: 12-21-2018 Resolved: 09-09-2021 08-02-2023 Chronic Congestive heart failure; nonhypertensive (10 sources) Heart failure; 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: [Chronic diastolic (congestive) heart failure] Onset: 02-20-2024 07-31-2023 Chronic Coronary atherosclerosis and other heart disease (10 sources) Preinfarction syndrome; 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: [Unstable angina] Onset: 07-06-2012 04-20-2023 Chronic Deficiency and other anemia (3 [...] [Anemia, unspecified] Episodic Disorders of lipid metabolism (20 sources) Pure hypercholesterolemia, unspecified; 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: [Familial hypercholesterolemia] Onset: 06-11-2016 Chronic Esophageal disorders (4 sources) Gastro-esophageal reflux disease with esophagitis; 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: [Gastroesophageal reflux disease with esophagitis without hemorrhage] Chronic Essential hypertension (20 sources) Essential (primary) hypertension; 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: [Essential hypertension] Onset: 06-08-2011 Chronic Hyperplasia of prostate (9 sources) Lower urinary tract symptoms due to benign prostatic hypertrophy; 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: [Benign prostatic hyperplasia with lower urinary tract symptoms] Chronic Inflammation; infection of eye (except that caused by tuberculosis or sexually transmitteddisease) (8 sources) Allergic dermatitis of right eye, unspecified eyelid; 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: [Contact or allergic eyelid dermatitis] Episodic Inflammatory conditions of male genital organs (1 source) Epididymo-orchitis Episodic Noninfectious gastroenteritis (3 sources) Colitis presumed infectious; 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: [Noninfective gastroenteritis and colitis, unspecified] 09-26-2023 Episodic Nonspecific chest pain (6 sources) Chest pain; 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: [Chest pain, unspecified] Onset: 02-20-2024 04-20-2023 Episodic Occlusion or stenosis of precerebral arteries (14 sources) Carotid artery stenosis; 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: [Occlusion and stenosis of unspecified carotid artery] Onset: 02-26-2019 07-31-2023 Chronic Other aftercare (1 source) Other detention (current) drug therapy; 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: [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] Onset: 06-02-2021 Episodic Other circulatory disease (6 sources) Cardiovascular symptoms; 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: [Other specified symptoms and signs involving the circulatory and respiratory systems] Episodic Other circulatory disease (3 sources) Other specified symptoms and signs involving the circulatory and respiratory systems; 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: [Bilateral carotid bruits] Episodic Other circulatory disease (4 sources) Syncope due to orthostatic hypotension; 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: [Orthostatic hypotension] Onset: 02-20-2024 09-26-2023 Episodic Other connective tissue disease (7 sources) [...] caused by tuberculosis or sexually transmitted disease) (11 sources) Cardiomyopathy; 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: [Other cardiomyopathies] Onset: 03-13-2020 07-31-2023 Chronic Screening and history of mental health and substance abuse codes (1 source) Personal history of nicotine dependence; 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: [PERSONAL HISTORY OF NICOTINE DEPEND] Onset: 06-02-2021 Episodic Septicemia (except in labor) (3 sources) Sepsis; 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: [Sepsis, unspecified organism] 09-24-2023 Episodic Skin and subcutaneous tissue infections (7 sources) Cellulitis of finger of left hand; 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: [Cellulitis of left finger] Episodic Spondylosis; intervertebral disc disorders; other back problems (13 sources) Cervical spondylosis; 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: [Spondylosis without myelopathy or radiculopathy, cervical region] 07-31-2023 Chronic Sprains and strains (1 source) Strain of muscle, fascia and tendon of other parts of biceps, left arm, initial encounter Episodic Syncope (6 sources) Syncope; 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: [Syncope and collapse] Onset: 02-20-2024 09-24-2023 Episodic Unclassified (1 source) Device Check Onset: 02-29-2024 Past or Other Problems Problem Classification Problem Date Documented Da te Episodic/Chronic Abdominal pain (15 sources) Left lower quadrant pain; 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: [Epigastric pain] Onset: 10-10-2018 Episodic Calculus of urinary tract (20 sources) Calculus of kidney; 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: [Personal history of urinary calculi] Onset: 06-02-2021 Episodic Cardiac dysrhythmias (4 sources) Bradycardia; 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: [Bradycardia, unspecified] Onset: 12-20-2016 12-20-2016 Episodic Esophageal disorders (5 sources) Esophageal disorders; 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: [Gastroesophageal reflux disease with esophagitis without hemorrhage] Other aftercare (4 sources) Wound ; 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: [Encounter for other specified surgical aftercare] Onset: 04-11-2020 04-11-2020 Episodic Other aftercare (4 sources) Taking high risk medication; 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: [Other detention (current) drug therapy] Onset: 05-05-2020 05-05-2020 Episodic Other male genital disorders (4 sources) Cyst of epididymis; 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: [Cyst of epididymis] Onset: 02-15-2023 02-15-2023 Episodic Corry-; endo-; and myocarditis; cardiomyopathy (except that caused by tuberculosis or sexually transmitted disease) (4 sources) Pericardial effusion; 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: [Pericardial effusion] Onset: 04-15-2020 04-15-2020 Episodic Unclassified (7 sources) Acute bilateral low back pain without sciatica; 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: [Acute bilateral low back pain without sciatica] Viral infection (1 source) COVID-19 Results Test Name Value Interpretation Reference Range Facility Device InterrogationOrdered By: Antonia Hollis on 02-29-2024 [facility] Radiology Study observation (narrative) [facility] Basophils Auto (Bld) [#/Vol] on 09-22-2023 Basophils (Bld) [#/Vol] 0.0 10 3/uL 0.0-0.1 [facility] Basophils/100 WBC Auto (Bld) on 09-22-2023 Basophils/100 WBC (Bld) 0.2 % 0.2-2.[address] [facility] Eosinophils/100 WBC Auto (Bl d)on 09-22-2023 Eosinophils/100 WBC (Bld) 1.5 % 0.9-7.0 [facility] Erythrocyte distribution wid th Auto (RBC) [Ratio]on 09-22-2023 Erythrocyte distribution width (RBC) [Ratio] 13.1 % 11.0-15.0 [facility] Estimated glomerular filtrat ion rate (GFR) non- Americanon 09-22-2023 GFR/1.73 sq M.predicted among non-blacks MDRD (S/P/Bld) [Vol rate/Area] 58 mL/min/{1.73_m2} >=60 [facility] Globulin Calc (S) [Mass/Vol] on 09-22-2023 Globulin (S) [Mass/Vol] 3.2 g/dL F [facility] Hematocrit Auto (Bld) [Volum e fraction]on 09-22-2023 Hematocrit (Bld) [Volume fraction] 32.6 % 42.0-54.0 [facility] Hemoglobin [Mass/volume] in Bloodon 09-22-2023 Hemoglobin (Bld) [Mass/Vol] 10.6 g/dL 14.0-18.0 [facility] Laboratory - Chemistry and C hemistry - challengeon 09-22-2023 Albumin [Mass/Vol] 2.6 g/dL 3.4-5.0 [facility] ALP [Catalytic activity/Vol] 75 U/L 46-116 [facility] ALT [Catalytic activity/Vol] 17 U/L 16-63 [facility] AST [Catalytic activity/Vol] 19 U/L 15-37 [facility] Bilirubin [Mass/Vol] 1.0 mg/dL 0.2-1.0 [facility] Calcium [Mass/Vol] 8.3 mg/dL 8.5-10.1 [facility] Chloride [Moles/Vol] 107 mmol/L 98-107 [facility] CO2 [Moles/Vol] 25.8 mmol/L 21.0-32.0 [facility] Creatinine [Mass/Vol] 1.18 mg/dL 0.70-1.30 [facility] GFR/1.73 sq M.predicted MDRD (S/P/Bld) [Vol rate/Area] mL/min/{1.73_m2} >=60 [facility] Glucose [Mass/Vol] 92 mg/dL 74-106 [facility] Potassium [Moles/Vol] 3.4 mmol/L 3.5-5.1 [facility] Protein [Mass/Vol] 5.8 g/dL 6.4-8.2 [facility] Sodium [Moles/Vol] 139 mmol/L 136-145 [facility] Urea nitrogen [Mass/Vol] 23.0 mg/dL 7.0-18.0 [facility] Urea nitrogen/Creatinine [Mass ratio] 19.5 mg/mg [facility] Laboratory - Hematology and Cell countson 09-22-2023 Immature granulocytes/100 WBC (Bld) 0.4 % 0.0-0.5 [facility] Leukocytes [#/volume] correc dillan for nucleated erythrocytes in Blood by Automated counon 09-22-2023 WBC corrected for nucl RBC Auto (Bld) [#/Vol] 9.9 10 3/uL 4.0-11.0 [facility] Lymphocytes Auto (Bld) [#/Vo l]on 09-22-2023 Lymphocytes (Bld) [#/Vol] 0.9 10 3/uL 1.2-3.8 [facility] Lymphocytes/100 WBC Auto (Bl d)on 09-22-2023 Lymphocytes/100 WBC (Bld) 9.2 % 20.5-60.0 [facility] MCH Auto (RBC) [Entitic mass ]on 09-22-2023 MCH (RBC) [Entitic mass] 32.3 pg 25.9-34.0 [facility] MCHC Auto (RBC) [Mass/Vol]on 09-22-2023 MCHC (RBC) [Mass/Vol] 32.5 g/dL 29.9-35.2 [facility] MCV Auto (RBC) [Entitic vol] on 09-22-2023 MCV (RBC) [Entitic vol] 99.4 fL 80.0-94.[address] [facility] Monocytes Auto (Bld) [#/Vol] on 09-22-2023 Monocytes (Bld) [#/Vol] 0.6 10 3/uL 0.3-0.8 [facility] Monocytes/100 WBC Auto (Bld) on 09-22-2023 Monocytes/100 WBC (Bld) 5.7 % 1.7-12.[address] [facility] Neutrophils Auto (Bld) [#/Vo l]on 09-22-2023 Neutrophils (Bld) [#/Vol] 8.2 10 3/uL 1.4-6.5 [facility] Neutrophils/100 WBC Auto (Bl d)on 09-22-2023 Neutrophils/100 WBC (Bld) 83.0 % 43.0-75.0 [facility] No Panel Informationon 09-21 Eosinophils # (Auto) 0.2 10 3/uL 0.0-0.7 [facility] Immature Granulocyte # (Auto) 0.04 10 3/uL 0.00-0.03 [facility] Platelet mean volume Auto (B ld) [Entitic vol]on 09-22-2023 Platelet mean volume (Bld) [Entitic vol] 10.7 fL 9.5-13.5 [facility] Platelets Auto (Bld) [#/Vol] on 09-22-2023 Platelets (Bld) [#/Vol] 166 10 3/uL 150-450 [facility] RBC Auto (Bld) [#/Vol]on RBC (Bld) [#/Vol] 3.28 10 6/uL 4.70-6.10 [facility] Serum or plasma albumin/glob ulin mass ratioon 09-22-2023 Albumin/Globulin [Mass ratio] 0.8 {ratio} [facility] Serum or plasma anion gap de terminationon 09-22-2023 Anion gap [Moles/Vol] 9.6 mmol/L [facility] Serum procalcitonin measurem enton 09-22-2023 Procalcitonin [Mass/Vol] 7.20 ng/mL 0.00-0.50 [facility] Basophils Auto (Bld) [#/Vol] on 09-21-2023 Basophils (Bld) [#/Vol] 0.0 10 3/uL 0.0-0.1 [facility] Basophils/100 WBC Auto (Bld) on 09-21-2023 Basophils/100 WBC (Bld) 0.1 % 0.2-2.[address] [facility] Detection in stool of any of Campylobacter coli, Campylobacter jejuni, and Campylobacon 09-21-2023 C. coli+jejuni+upsaliensis DNA NAUN+non-probe Ql (Stl) Not detected NOT DETECTE [facility] Detection in stool of any of Vibrio cholerae, Vibrio parahaemolyticus, and Vibrio vulon 09-21-2023 V. cholerae+parahaemolyticu s+vulnificus DNA NAUN+non-probe Ql (Stl) Not detected NOT DETECTE [facility] Detection in stool of either or both Salmonella enterica and Salmonella bongori DNA bon 09-21-2023 S. enterica+bongori DNA NAUN+non-probe Ql (Stl) Not detected NOT DETECTE [facility] Detection in stool of either or both enteroaggregative Escherichia coli Chalino plasmid aon 09-21-2023 E. coli enteroaggregative Chalino plasmid aggR+aatA genes NAUN+non-probe Ql (Stl) Not detected NOT DETECTE [facility] Eosinophils/100 WBC Auto (Bl d)on 09-21-2023 Eosinophils/100 WBC (Bld) 0.0 % 0.9-7.0 [facility] Erythrocyte distribution wid th Auto (RBC) [Ratio]on 09-21-2023 Erythrocyte distribution width (RBC) [Ratio] 13.1 % 11.0-15.0 [facility] Escherichia coli Stx1 and St x2 toxin stx1+stx2 genes [Presence] in Stool by NAUN withon 09-21-2023 E. coli stx1+stx2 genes NAUN+non-probe Ql (Stl) Not detected NOT DETECTE [facility] Escherichia coli enteropatho genic eae gene [Presence] in Stool by NAUN with non-probeon 09-21-2023 E. coli enteropathogenic eae gene NAUN+non-probe Ql (Stl) Not detected NOT DETECTE [facility] Escherichia coli enterotoxig enic ltA+st1a+st1b genes [Presence] in Stool by NAUN withon 09-21-2023 E. coli enterotoxigenic ltA+st1a+st1b genes NAUN+non-probe Ql (Stl) Not detected NOT DETECTE [facility] Estimated glomerular filtrat ion rate (GFR) non- Americanon 09-21-2023 GFR/1.73 sq M.predicted among non-blacks MDRD (S/P/Bld) [Vol rate/Area] 42 mL/min/{1.73_m2} >=60 [facility] Hematocrit Auto (Bld) [Volum e fraction]on 09-21-2023 Hematocrit (Bld) [Volume fraction] 34.3 % 42.0-54.0 [facility] Hemoglobin [Mass/volume] in Bloodon 09-21-2023 Hemoglobin (Bld) [Mass/Vol] 11.3 g/dL 14.0-18.0 [facility] Laboratory - Chemistry and C hemistry - challengeon 09-21-2023 Calcium [Mass/Vol] 8.4 mg/dL 8.5-10.1 [facility] Chloride [Moles/Vol] 105 mmol/L 98-107 [facility] CO2 [Moles/Vol] 26.4 mmol/L 21.0-32.0 [facility] Creatinine [Mass/Vol] 1.57 mg/dL 0.70-1.30 [facility] GFR/1.73 sq M.predicted MDRD (S/P/Bld) [Vol rate/Area] 51 mL/min/{1.73_m2} >=60 [facility] Glucose [Mass/Vol] 107 mg/dL 74-106 [facility] Lactate [Moles/Vol] 1.0 mmol/L 0.4-2.0 [facility] Potassium [Moles/Vol] 3.9 mmol/L 3.5-5.1 [facility] Sodium [Moles/Vol] 139 mmol/L 136-145 [facility] Urea nitrogen [Mass/Vol] 31.0 mg/dL 7.0-18.0 [facility] Urea nitrogen/Creatinine [Mass ratio] 19.7 mg/mg [facility] - Hematology and Cell countson 09-21-2023 Immature granulocytes/100 WBC (Bld) 0.6 % 0.0-0.5 [facility] - Specimen inform ationon 09-21-2023 Specimen type Nom (Spec) Stool [facility] Leukocytes [#/volume] correc dillan for nucleated erythrocytes in Blood by Automated counon 09-21-2023 WBC corrected for nucl RBC Auto (Bld) [#/Vol] 14.4 10 3/uL 4.0-11.0 [facility] Lymphocytes Auto (Bld) [#/Vo l]on 09-21-2023 Lymphocytes (Bld) [#/Vol] 0.9 10 3/uL 1.2-3.8 [facility] Lymphocytes/100 WBC Auto (Bl d)on 09-21-2023 Lymphocytes/100 WBC (Bld) 6.2 % 20.5-60.0 [facility] MCH Auto (RBC) [Entitic mass ]on 09-21-2023 MCH (RBC) [Entitic mass] 32.7 pg 25.9-34.0 [facility] MCHC Auto (RBC) [Mass/Vol]on 09-21-2023 MCHC (RBC) [Mass/Vol] 32.9 g/dL 29.9-35.2 [facility] MCV Auto (RBC) [Entitic vol] on 09-21-2023 MCV (RBC) [Entitic vol] 99.1 fL 80.0-94.[address] [facility] Monocytes Auto (Bld) [#/Vol] on 09-21-2023 Monocytes (Bld) [#/Vol] 1.0 10 3/uL 0.3-0.8 [facility] Monocytes/100 WBC Auto (Bld) on 09-21-2023 Monocytes/100 WBC (Bld) 7.0 % 1.7-12.[address] [facility] Neutrophils Auto (Bld) [#/Vo l]on 09-21-2023 Neutrophils (Bld) [#/Vol] 12.4 10 3/uL 1.4-6.5 [facility] Neutrophils/100 WBC Auto (Bl d)on 09-21-2023 Neutrophils/100 WBC (Bld) 86.1 % 43.0-75.0 [facility] No Panel Informationon 09-20 Adenovirus Types 40, 41 Not detected NOT DETECT E [facility] C. difficile Antigen and Toxins A,B Not detected NOT DETECTE [facility] Giardia lamblia Interpretation Not detected NOT DETECTE [facility] Stool Astrovirus (PCR) Not detected NOT DETECTE [facility] Stool Cryptosporidium Confirmation Not detected NOT DETECTE [facility] Stool Cyclospora cayetanensis (PCR) Not detected NOT DETECTE [facility] Stool Entamoeba (PCR) Not detected NOT DETECTE [facility] Stool Norovirus GI/GII PCR Not detected NOT DETECTE [facility] Stool Rotavirus (PCR) Not detected NOT DETECTE [facility] Stool Sapovirus (PCR) Not detected NOT DETECTE [facility] Stool Yersinia enterocolitica (PCR) Not detected NOT DETECTE [facility] Eosinophils # (Auto) 0.0 10 3/uL 0.0-0.7 [facility] Immature Granulocyte # (Auto) 0.09 10 3/uL 0.00-0.03 [facility] Troponin I High Sensitivity 39.6 pg/mL 4.0-76.1 [facility] Comment on above: CUT-OFF POINTS HAVE BEEN ESTABLISHED BASED ON THE FOURTHUNIVERSAL DEFINITION OF MYOCARDIAL INFARCTION. THE UPPERREFERENCE LIMIT (URL) OF TROPONIN, DEFINED THE 99THPERCENTILE OF cTnI DISTRIBUTION IN A REFERENCE POPULATION,HAS BEEN CONFIRMED THE DECISION THRESHOLD FOR MIDIAGNOSIS.99TH PERCENTILE = 76.2 PG/MLNOTE: HIGH-SENSITIVITY TROPONIN ASSAY IS NOT INTENDED TO BEUSED IN ISOLATION BUT SHOULD BE INTERPRETED IN CONJUNCTIONWITH OTHER DIAGNOSTIC AND CLINICAL INFORMATION. Platelet mean volume Auto (B ld) [Entitic vol]on 09-21-2023 Platelet mean volume (Bld) [Entitic vol] 10.7 fL 9.5-13.5 [facility] Platelets Auto (Bld) [#/Vol] on 09-21-2023 Platelets (Bld) [#/Vol] 194 10 3/uL 150-450 [facility] RBC Auto (Bld) [#/Vol]on RBC (Bld) [#/Vol] 3.46 10 6/uL 4.70-6.10 [facility] Serum or plasma anion gap de terminationon 09-21-2023 Anion gap [Moles/Vol] 11.5 mmol/L [facility] Shigella species+EIEC invasi on plasmid antigen H ipaH gene [Presence] in Stool by NAAon 09-21-2023 Shigella species+EIEC invasion plasmid antigen H ipaH gene NAUN+non-probe Ql (Stl) Not detected NOT DETECTE [facility] Stool Plesiomonas shigelloid es DNA detection by non-probe and target amplification meon 09-21-2023 P. shigelloides DNA NAUN+non-probe Ql (Stl) Not detected NOT DETECTE [facility] Vibrio cholerae DNA [Presenc e] in Stool by NAUN with non-probe detectionon 09-21-2023 V. cholerae DNA NAUN+non-probe Ql (Stl) Not detected NOT DETECTE [facility] Basophils Auto (Bld) [#/Vol] on 09-20-2023 Basophils (Bld) [#/Vol] 0.0 10 3/uL 0.0-0.1 [facility] Basophils/100 WBC Auto (Bld) on 09-20-2023 Basophils/100 WBC (Bld) 0.2 % 0.2-2.[address] [facility] Casts typing in urine sedime nt by light microscopyon 09-20-2023 Casts LM Nom (Urine sed) SEEN #/LPF NONE SEEN [facility] Coarse granular casts count in urine sediment by microscopy low power field (number/aon 09-20-2023 Coarse Granular Casts LM.LPF (Urine sed) [#/Area] RARE [facility] Eosinophils/100 WBC Auto (Bl d)on 09-20-2023 Eosinophils/100 WBC (Bld) 0.0 % 0.9-7.0 [facility] Erythrocyte distribution wid th Auto (RBC) [Ratio]on 09-20-2023 Erythrocyte distribution width (RBC) [Ratio] 12.9 % 11.0-15.0 [facility] Estimated glomerular filtrat ion rate (GFR) non- Americanon 09-20-2023 GFR/1.73 sq M.predicted among non-blacks MDRD (S/P/Bld) [Vol rate/Area] 30 mL/min/{1.73_m2} >=60 [facility] Fine granular cast count in urine sediment by microscopy (number/low power field )on 09-20-2023 Fine Granular Casts LM.LPF (Urine sed) [#/Area] FEW [facility] Globulin Calc (S) [Mass/Vol] on 09-20-2023 Globulin (S) [Mass/Vol] 4.0 g/dL F [facility] Hematocrit Auto (Bld) [Volum e fraction]on 09-20-2023 Hematocrit (Bld) [Volume fraction] 43.4 % 42.0-54.0 [facility] Hemoglobin [Mass/volume] in Bloodon 09-20-2023 Hemoglobin (Bld) [Mass/Vol] 14.3 g/dL 14.0-18.0 [facility] INR in Platelet poor plasma by Coagulation assayon 09-20-2023 INR Coag (PPP) [Relative time] 1.06 {INR} [facility] Comment on above: DESIRED INR:2.0-3.0 CONDITIONS NOT LISTED BELOW2.5-3.5 FOR PROSTHETIC HEART VALVE REPLACEMENT2.5-3.5 [facility] Laboratory - Chemistry and C hemistry - challengeon 09-20-2023 Lactate [Moles/Vol] 2.5 mmol/L 0.4-2.0 [facility] Comment on above: RESULTS CALLED TO YUDITH SOLO RN @BY Jaky James at 2226 Bilirubin Ql (U) SMALL NEGATIVE [facility] Glucose (U) [Mass/Vol] Negative NEGATIVE [facility] Ketones Ql (U) TRACE mg/dL NEGATIVE [facility] pH (U) 5.5 [pH] 5.0-9.0 [facility] Specific gravity (U) [Rel density] 1.020 1.005-1.025 [facility] Urobilinogen Qn (U) 1.0 {Julia'U}/dL 0.2-1.0 [facility] Albumin [Mass/Vol] 3.8 g/dL 3.4-5.0 [facility] ALP [Catalytic activity/Vol] 112 U/L 46-116 [facility] ALT [Catalytic activity/Vol] 27 U/L 16-63 [facility] AST [Catalytic activity/Vol] 32 U/L 15-37 [facility] Bilirubin [Mass/Vol] 2.4 mg/dL 0.2-1.0 [facility] Calcium [Mass/Vol] 9.9 mg/dL 8.5-10.1 [facility] Chloride [Moles/Vol] 100 mmol/L 98-107 [facility] CO2 [Moles/Vol] 28.8 mmol/L 21.0-32.0 [facility] Creatinine [Mass/Vol] 2.09 mg/dL 0.70-1.30 [facility] GFR/1.73 sq M.predicted MDRD (S/P/Bld) [Vol rate/Area] 37 mL/min/{1.73_m2} >=60 [facility] Glucose [Mass/Vol] 160 mg/dL 74-106 [facility] Potassium [Moles/Vol] 3.8 mmol/L 3.5-5.1 [facility] Protein [Mass/Vol] 7.8 g/dL 6.4-8.2 [facility] Sodium [Moles/Vol] 140 mmol/L 136-145 [facility] TSH Qn 1.280 m[IU]/L 0.358-3.740 [facility] Urea nitrogen [Mass/Vol] 32.0 mg/dL 7.0-18.0 [facility] Urea nitrogen/Creatinine [Mass ratio] 15.3 mg/mg [facility] - Hematology and Cell countson 09-20-2023 Immature granulocytes/100 WBC (Bld) 0.4 % 0.0-0.5 [facility] - Specimen inform ationon 09-20-2023 Appearance (U) CLEAR CLEAR [facility] Color (U) DK. YELLOW YELLOW [facility] - Urinalysison Amorphous sediment LM Ql (Urine sed) FEW [facility] Hyaline casts LM Ql (Urine sed) MODERATE [facility] Leukocyte esterase Test strip Ql (U) Negative NEGATIVE [facility] Nitrite Ql (U) Negative NEGATIVE [facility] Protein Ql (U) 30 mg/dL NEG/TRACE [facility] Leukocytes [#/volume] correc dillan for nucleated erythrocytes in Blood by Automated counon 09-20-2023 WBC corrected for nucl RBC Auto (Bld) [#/Vol] 18.1 10 3/uL 4.0-11.0 [facility] Lymphocytes Auto (Bld) [#/Vo l]on 09-20-2023 Lymphocytes (Bld) [#/Vol] 0.3 10 3/uL 1.2-3.8 [facility] Lymphocytes/100 WBC Auto (Bl d)on 09-20-2023 Lymphocytes/100 WBC (Bld) 1.7 % 20.5-60.0 [facility] MCH Auto (RBC) [Entitic mass ]on 09-20-2023 MCH (RBC) [Entitic mass] 32.5 pg 25.9-34.0 [facility] MCHC Auto (RBC) [Mass/Vol]on 09-20-2023 MCHC (RBC) [Mass/Vol] 32.9 g/dL 29.9-35.2 [facility] MCV Auto (RBC) [Entitic vol] on 09-20-2023 MCV (RBC) [Entitic vol] 98.6 fL 80.0-94.[address] [facility] Monocytes Auto (Bld) [#/Vol] on 09-20-2023 Monocytes (Bld) [#/Vol] 0.9 10 3/uL 0.3-0.8 [facility] Monocytes/100 WBC Auto (Bld) on 09-20-2023 Monocytes/100 WBC (Bld) 5.2 % 1.7-12.[address] [facility] Mucus LM Ql (Urine sed)on Mucus Ql (Urine sed) NONE SEEN NONE SEEN [facility] Neutrophils Auto (Bld) [#/Vo l]on 09-20-2023 Neutrophils (Bld) [#/Vol] 16.8 10 3/uL 1.4-6.5 [facility] Neutrophils/100 WBC Auto (Bl d)on 09-20-2023 Neutrophils/100 WBC (Bld) 92.5 % 43.0-75.0 [facility] No Panel Informationon 09-19 Venous Blood Partial Pressure CO2 48.7 mm[Hg] 40.0-52.0 [facility] Venous Blood pH 7.333 7.330-7.430 [facility] Urine Bacteria NONE SEEN #/HPF NONE SEEN [facility] Urine Culture Reflexed NO [facility] Urine Microscopic Review YES [facility] Urine Occult Blood Negative NEGATIVE [facility] Urine Other Crystals Seen #/HPF None Seen [facility] Urine RBC 0-2 #/HPF 0-2 [facility] Urine Squamous Epithelial Cells NONE SEEN #/LPF NONE/RARE [facility] Urine WBC 0-2 #/HPF NONE SEEN [facility] Eosinophils # (Auto) 0.0 10 3/uL 0.0-0.7 [facility] Immature Granulocyte # (Auto) 0.07 10 3/uL 0.00-0.03 [facility] Troponin I High Sensitivity 56.0 pg/mL 4.0-76.1 [facility] Comment on above: CUT-OFF POINTS HAVE BEEN ESTABLISHED BASED ON THE FOURTHUNIVERSAL DEFINITION OF MYOCARDIAL INFARCTION. THE UPPERREFERENCE LIMIT (URL) OF TROPONIN, DEFINED THE 99THPERCENTILE OF cTnI DISTRIBUTION IN A REFERENCE POPULATION,HAS BEEN CONFIRMED THE DECISION THRESHOLD FOR MIDIAGNOSIS.99TH PERCENTILE = 76.2 PG/MLNOTE: HIGH-SENSITIVITY TROPONIN ASSAY IS NOT INTENDED TO BEUSED IN ISOLATION BUT SHOULD BE INTERPRETED IN CONJUNCTIONWITH OTHER DIAGNOSTIC AND CLINICAL INFORMATION. Platelet mean volume Auto (B ld) [Entitic vol]on 09-20-2023 Platelet mean volume (Bld) [Entitic vol] 10.4 fL 9.5-13.5 [facility] Platelets Auto (Bld) [#/Vol] on 09-20-2023 Platelets (Bld) [#/Vol] 246 10 3/uL 150-450 [facility] Prothrombin time (PT)on 09-06 PT Coag (PPP) [Time] 11.2 s 9.0-11.6 [facility] RBC Auto (Bld) [#/Vol]on RBC (Bld) [#/Vol] 4.40 10 6/uL 4.70-6.10 [facility] Serum or plasma albumin/glob ulin mass ratioon 09-20-2023 Albumin/Globulin [Mass ratio] 0.9 {ratio} [facility] Serum or plasma anion gap de terminationon 09-20-2023 Anion gap [Moles/Vol] 15.0 mmol/L [facility] Serum procalcitonin measurem enton 09-20-2023 Procalcitonin [Mass/Vol] 14.15 ng/mL 0.00-0.50 [facility] CBC W MANUAL DIFFon 05-30-19 22 ATYPICAL LYMPH # Normal [facility] Comment on above: Performed By: #### C ABIGAIL #### [facility] [address] [place] [address] Dr. Aubrie Sadler ATYPICAL LYMPH % Normal [facility] Comment on above: Performed By: #### C ABIGAIL #### [facility] [address] [place] [address] Dr. Aubrie Sadler BAND # 0.2 103/ul Normal 0.0-0.3 [facility] Comment on above: Performed By: #### C ABIGAIL #### [facility] [address] [place] [address] Dr. Aubrie Sadler BAND % 2 % Normal 0-5 [facility] Comment on above: Performed By: #### C ABIGAIL #### [facility] [address] [place] [address] Dr. Aubrie Sadler BASOM # 0.00 103/ul Normal 0.00-0.10 [facility] Comment on above: Performed By: #### C ABIGAIL #### [facility] [address] [place] [address] Dr. Aubrie Sadlre BASOM % 0.0 % Critically low 0.2-2.0 [facility] Comment on above: Performed By: #### C ABIGAIL #### [facility] [address] [place] [address] Dr. Aubrie Sadler BLAST # Normal [facility] Comment on above: Performed By: #### C ABIGAIL #### [facility] [address] [place] [address] Dr. Aubrie Sadler BLAST % Normal [facility] Comment on above: Performed By: #### C ABIGAIL #### [facility] [address] [place] [address] Dr. Aubrie Sadler CORRECTED WBC Normal 4.0-11.0 [facility] Comment on above: Performed By: #### C ABIGAIL #### [facility] [address] [place] [address] Dr. Aubrie Sadler EOS # 0.00 103/ul Normal 0.00-0.70 [facility] Comment on above: Performed By: #### C ABIGAIL #### [facility] [address] [address] [address] Aubrie Sadler EOS% 0.0 % Critically low 0.9-7.0 [facility] Comment on above: Performed By: #### C ABIGAIL #### [facility] [address] [address] [address] Aubrie Sadler HCT 33.9 % Critically low 42.0-54.0 [facility] Comment on above: Performed By: #### C ABIGAIL #### [facility] [address] [address] [address] Aubrie Sadler HGB 11.2 g/dl Critically low 14.0-18.0 [facility] Comment on above: Performed By: #### C ABIGAIL #### [facility] [address] [place] [address] Dr. Aubrie Sadler LYMPHM # 0.61 103/ul Critically low 1.20-3.80 [facility] Comment on above: Performed By: #### C ABIGAIL #### [facility] [address] [address] [address] Aubrie Sadler LYMPHM% 7.0 % Critically low 20.5-60.0 [facility] Comment on above: Performed By: #### C ABIGAIL #### [facility] [address] [place] [address] Dr. Aubrie Sadler MCH 30.3 pg Normal 25.9-34.0 [facility] Comment on above: Performed By: #### C ABIGAIL #### [facility] [address] [address] [address] Aubrie Sadler MCHC 33.0 g/dl Normal 29.9-35.2 [facility] Comment on above: Performed By: #### C ABIGAIL #### [facility] [address] [address] [address] Aubrie Sadler MCV 91.6 fL Normal 80.0-94.0 [facility] Comment on above: Performed By: #### Rica HAYES #### [facility] [address] [place] [address] Dr. Aubrie Sadler METAMYELOCYTE # Normal [facility] Comment on above: Performed By: #### C ABIGAIL #### [facility] [address] [address] [address] Aubrie Sadler METAMYELOCYTE % Normal [facility] Comment on above: Performed By: #### C ABIGAIL #### [facility] [address] [address] [address] Aubrie Sadler MONOM# 0.52 103/ul Normal 0.30-0.80 [facility] Comment on above: Performed By: #### C ABIGAIL #### [facility] [address] [address] [address] Aubrie Sadler MONOM% 6.0 % Normal 1.7-12.0 [facility] Comment on above: Performed By: #### C ABIGAIL #### [facility] [address] [place] [address] Dr. Aubrie Sadler MPV 10.0 fL Normal 9.5-13.5 [facility] Comment on above: Performed By: #### C ABIGAIL #### [facility] [address] [place] [address] Dr. Aubrie Sadler MYELOCYTE # Normal [facility] Comment on above: Performed By: #### C ABIGAIL #### [facility] [address] [place] [address] Dr. Aubrie Sadler MYELOCYTE % Normal [facility] Comment on above: Performed By: #### C ABIGAIL #### [facility] [address] [place] [address] Dr. Aubrie Sadler NRBC Normal [facility] Comment on above: Performed By: #### C ABIGAIL #### [facility] [address] [address] [address] Aubrie Sadler PLT 217 103/ul Normal 150-450 [facility] Comment on above: Performed By: #### C ABIGAIL #### [facility] [address] [place] [address] Dr. Aubrie Sadler RBC 3.70 106/ul Critically low 4.70-6.10 [facility] Comment on above: Performed By: #### C BCMAN #### [facility] [address] [place], [place] [address] Dr. Aubrie Sadler RDW 13.7 % Normal 11.0-15.0 [facility] Comment on above: Performed By: #### C BCMAN #### [facility] [address] [place], [place] [address] Dr. Aubrie Sadler SEG # 7.39 103/ul Critically high 1.40-6.50 [facility] Comment on above: Performed By: #### C BCMAN #### [facility] [address] [place], [place] [address] Dr. Aubrie Sadler SEG % 85.0 % Critically high 43.0-75.0 [facility] Comment on above: Performed By: #### C BCMAN #### [facility] [address] [place], [place] [address] Dr. Aubrie Sadler WBC 8.7 103/ul Normal 4.0-11.0 [facility] Comment on above: Performed By: #### C BCMAN #### [facility] [address] [place], [place] [address] ABD/PELVIS WO CONon [...] portal vein demonstrate normal noncontrasted CT appearance. Mesentery/retroperi toneum: No free fluid, free air or focal stranding. No pathologically enlarged lymph nodes. Pelvic viscera: Within normal limits. MSK: Multilevel degenerative changes throughout the spine. Small fat-containing umbilical hernia. IMPRESSION: 1. Nonobstructing collecting system calcifications in the left kidney. No ureterolith. 2. Other chronic findings as above. Electronically authenticated by: MANPREET JONES Date: 2021-05-30 21:38 Normal [facility] URINE PROFILEon 2 Bilirubin Ql (U) Negative Normal NEGATIVE [facility] Comment on above: Performed By: #### E RUR ####[facility] [id number] [place], [place] [address]Dr. Aubrie Sadler Clarity (U) CLEAR Normal CLEAR [facility] Comment on above: Performed By: #### E RUR ####[facility] [id number] [place], [place] [address]Dr. Aubrie Sadler Color (U) YELLOW Normal YELLOW [facility] Comment on above: Performed By: #### E RUR ####[facility] [address] [place], [place] [address]Dr. Aubrie Sadler ERUAHD A micrscopic examination will be performed if indicated. Normal [facility] Comment on above: Performed By: #### E RUR ####[facility] [address] [place], [place] [address]Dr. Aubrie Sadler Glucose Ql (U) Negative Normal NEGATIVE [facility] Comment on above: Performed By: #### E RUR ####[facility] [address] [place], [place] [address]Dr. Aubrie Sadler Hemoglobin Ql (U) Negative Normal NEGATIVE [facility] Comment on above: Performed By: #### E RUR ####[facility] [address] [place], [place] [address]Dr. Aubrie Sadler Ketones Ql (U) TRACE Abnormal NEGATIVE [facility] Comment on above: Performed By: #### E RUR ####[facility] [address] [address]Dr. Aubrie Sadler LEUKOCYTES Negative Normal NEGATIVE [facility] Comment on above: Performed By: #### E RUR ####[facility] [address] [address]Dr. Aubrie Sadler Nitrite Ql (U) Negative Normal NEGATIVE [facility] Comment on above: Performed By: #### E RUR ####[facility] [address] [place], [place] [address]Dr. Aubrie Sadler pH (U) 5.0 [pH] Normal 5-9 [facility] Comment on above: Performed By: #### E RUR ####[facility] [address] [place], [place] [address]Dr. Aubrie Sadler SPEC GRAVITY 1.030 Abnormal 1.005-<=1.025 [facility] Comment on above: Performed By: #### E RUR ####[facility] [address] [place], [place] [address]Dr. Aubrie Sadler UA PROTEIN Negative Normal NEGATIVE/ TRACE [facility] Comment on above: Performed By: #### E RUR ####[facility] [address] [place], [place] [address]Dr. Aubrie Sadler UR MICRO IND NOT INDICATED Normal [facility] Comment on above: Performed By: #### E RUR ####[facility] [address] [place], [place] [address]Dr. Aubrie Sadler Urobilinogen Qn (U) 0.2 {Julia'U}/dL Normal 0.2 - 1. 0 [facility] Comment on above: Performed By: #### E RUR ####[facility] [address] [place], [place] [address]Dr. Aubrie Sadler PROF 14(COMP METB)on 022 Albumin [Mass/Vol] 3.8 g/dL Normal 3.5-5.0 [facility] Comment on above: Performed By: #### C MP #### [facility] [address] [address] [address] Aubrie Sadler Albumin/Globulin [Mass ratio] 1.2 {ratio} Normal [facility] Comment on above: Performed By: #### C MP #### [facility] [address] [address] [address] Aubrie Sadler ALP [Catalytic activity/Vol] 73 U/L Normal 38-126 [facility] Comment on above: Performed By: #### C MP #### [facility] [address] [address] [address] Aubrie Sadler ALT [Catalytic activity/Vol] 20 U/L Critically low 21-72 [facility] Comment on above: Performed By: #### C MP #### [facility] [address] [place] [address] Dr. Aubrie Sadler Anion gap [Moles/Vol] 11.1 mmol/L Normal [facility] Comment on above: Performed By: #### C MP #### [facility] [address] [place] [address] Dr. Aubrie Sadler AST [Catalytic activity/Vol] 19 U/L Normal 17-59 [facility] Comment on above: Performed By: #### C MP #### [facility] [address] [place] [address] Dr. Aubrie Sadler Bilirubin [Mass/Vol] 1.5 mg/dL Critically high 0.2-1.3 [facility] Comment on above: Performed By: #### C MP #### [facility] [address] [place] [address] Dr. Aubrie Sadler Calcium [Mass/Vol] 8.9 mg/dL Normal 8.4-10.2 [facility] Comment on above: Performed By: #### C MP #### [facility] [address] [place] [address] Dr. Aubrie Sadler Chloride [Moles/Vol] 100 mmol/L Normal 98-107 [facility] Comment on above: Performed By: #### C MP #### [facility] [address] [place], [place] [id number] Dr. Aubrie Sadler CO2 [Moles/Vol] 28.8 mmol/L Normal 22.0-30.0 [facility] Comment on above: Performed By: #### C MP #### [facility] [address] [address] [address] Aubrie Sadler Creatinine [Mass/Vol] 1.72 mg/dL Critically high 0.66-1.25 [facility] Comment on above: Performed By: #### C MP #### [facility] [address] [address] [address] Aubrie Sadler EGFR-AF MAURITIAN 46 mL/min/1.73m2 Critically low >=60 [facility] Comment on above: Performed By: #### C MP #### [facility] [address] [place] [address] Dr. Aubrie Sadler EGFR-NON AF MAURITIAN 38 mL/min/1.73m2 Critically low >=60 [facility] Comment on above: Performed By: #### C MP #### [facility] [address] [place] [address] [address] Aubrie Sadler Globulin (S) [Mass/Vol] 3.3 g/dL Normal [facility] Comment on above: Performed By: #### C MP #### [facility] [address] [place] [address] Dr. Aubrie Sadler Glucose [Mass/Vol] 125 mg/dL Critically high 74-106 [facility] Comment on above: Performed By: #### C MP #### [facility] [address] [address] [address] Aubrie Sadler Potassium [Moles/Vol] 3.9 mmol/L Normal 3.4-5.0 [facility] Comment on above: Performed By: #### C MP #### [facility] [address] [address] [address] Aubrie Sadler Protein [Mass/Vol] 7.1 g/dL Normal 6.1-8.2 [facility] Comment on above: Performed By: #### C MP #### [facility] [address] [address] [address] Aubrie Sadler Sodium [Moles/Vol] 136 mmol/L Critically low 137-145 [facility] Comment on above: Performed By: #### C MP #### [facility] [address] [address] [address] Aubrie Sadler Urea nitrogen [Mass/Vol] 27.0 mg/dL Critically high 9.0-20 .0 [facility] Comment on above: Performed By: #### C MP #### [facility] [address] [address] [address] Aubrie Sadler Urea nitrogen/Creatinine [Mass ratio] 15.7 mg/mg Normal [facility] Comment on above: Performed By: #### C MP #### [facility] [address] [address] [address] Aubrie Sadler CBC AUTO DIFFon 04-16-2021 BASO # 0.0 103/ul Normal 0.0-0.1 [facility] Comment on above: Performed By: #### C BC ####[facility] [address] [place] [address]DrTadeo Sadler Basophils/100 WBC (Bld) 0.7 % Normal 0.2-2.0 [facility] Comment on above: Performed By: #### C BC ####[facility] [address] [place] [address]Dr. Aubrie Sadler EO # 0.1 103/ul Normal 0.0-0.7 [facility] Comment on above: Performed By: #### C BC ####[facility] [address] [place] [address]DrTadeo Sadler Eosinophils/100 WBC (Bld) 2.4 % Normal 0.9-7.0 [facility] Comment on above: Performed By: #### C BC ####[facility] [address] [place] [address]DrTadeo Sadler Erythrocyte distribution width (RBC) [Ratio] 13.6 % Normal 11.0-15.0 [facility] Comment on above: Performed By: #### C BC ####[facility] [address] [place] [address]Dr. Aubrie Sadler Hematocrit (Bld) [Volume fraction] 34.4 % Critically low 42.0-54.0 [facility] Comment on above: Performed By: #### C BC ####[facility] [address] [place] [address]Dr. Aubrie Doroteo Hemoglobin (Bld) [Mass/Vol] 11.0 g/dL Critically low 14.0-18.0 [facility] Comment on above: Performed By: #### C BC ####[facility] [address] [place] [address]Dr. Aubrie Sadler IG # 0.01 10e3/ul Normal 0.00-0.03 [facility] Comment on above: Performed By: #### C BC ####[facility] [address] [place], [place] [address]Dr. Aubrie Sadler IG % 0.2 % Normal 0.0-0.5 [facility] Comment on above: Performed By: #### C BC ####[facility] [address] [place] [address]Dr. Jasmyneling Sadler LYMPH # 1.6 103/ul Normal 1.2-3.8 [facility] Comment on above: Performed By: #### C BC ####[facility] [address] [place] [address]Dr. Aubrie Sadler Lymphocytes/100 WBC (Bld) 29.3 % Normal 20.5-60.0 [facility] Comment on above: Performed By: #### C BC ####[facility] [address] [place] [address]Dr. Jasmyneling Sadler MANUAL DIFF REQ NO Normal [facility] Comment on above: Performed By: #### C BC ####[facility] [address] [place], [place] [address]Dr. Aubrie Doroteo MCH (RBC) [Entitic mass] 29.9 pg Normal 25.9-34.0 [facility] Comment on above: Performed By: #### C BC ####[facility] [address] [place], [place] [id number]. Aubrie Sadler MCHC (RBC) [Mass/Vol] 32.0 g/dL Normal 29.9-35.2 [facility] Comment on above: Performed By: #### C BC ####[facility] [address] [place] [id number]. Aubrie Sadler MCV (RBC) [Entitic vol] 93.5 fL Normal 80.0-94.0 [facility] Comment on above: Performed By: #### C BC ####[facility] [address] [place] [id number]. Aubrie Doroteo MONO # 0.5 103/ul Normal 0.3-0.8 [facility] Comment on above: Performed By: #### C BC ####[facility] [address] [place] [address]Dr. Aubrie Doroteo Monocytes/100 WBC (Bld) 9.5 % Normal 1.7-12.0 [facility] Comment on above: Performed By: #### C BC ####[facility] [address] [place], [place] [address]Dr. Aubrie Sadler NEUT # 3.2 103/ul Normal 1.4-6.5 [facility] Comment on above: Performed By: #### C BC ####[facility] [address] [place] [phone]. Aubrie Sadler Neutrophils/100 WBC (Bld) 57.9 % Normal 43.0-75.0 [facility] Comment on above: Performed By: #### C BC ####[facility] [address] [place] [address]Dr. Aubrie Sadler Platelet mean volume (Bld) [Entitic vol] 10.0 fL Normal 9.5-13.5 [facility] Comment on above: Performed By: #### C BC ####[facility] [address] [place] [id number]. Aubrie Doroteo PLT 219 103/ul Normal 150-450 [facility] Comment on above: Performed By: #### C BC ####[facility] [address] [place] [address]DrTadeo Sadler RBC 3.68 106/ul Critically low 4.70-6.10 [facility] Comment on above: Performed By: #### C BC ####[facility] [address] [place] [address]Dr. Aubrie Sadler WBC 5.5 103/ul Normal 4.0-11.0 [facility] Comment on above: Performed By: #### C BC ####[facility] [address] [place] [address]Dr. Aubrie Sadler FERRITINon 04-16-2021 Ferritin [Mass/Vol] 32.0 ng/mL Normal 17.9-464.0 [facility] Comment on above: Performed By: #### F ERR #### [facility] [address] [place] [address] Dr. Aubrie Sadler OCC BLD IMMUNOASSAYon 2020 OCCULT BLOOD Negative Normal NEGATIVE [facility] Comment on above: Performed By: #### O FABRIZIO #### [facility] [address] [place] [address] Dr. Aubrie Sadler CBC AUTO DIFFon 01-23-2021 BASO # 0.0 103/ul Normal 0.0-0.1 [facility] Comment on above: Performed By: #### C BC #### [facility] [address] [place] [address] Dr. Aubrie Sadler Basophils/100 WBC (Bld) 0.7 % Normal 0.2-2.0 [facility] Comment on above: Performed By: #### C BC #### [facility] [address] [place] [address] Dr. Aubrie Sadler EO # 0.1 103/ul Normal 0.0-0.7 [facility] Comment on above: Performed By: #### C BC #### [facility] [address] [place] [address] Dr. Aubrie Sadler Eosinophils/100 WBC (Bld) 1.8 % Normal 0.9-7.0 [facility] Comment on above: Performed By: #### C BC #### [facility] [address] [place] [address] Dr. Aubrie Sadler Erythrocyte distribution width (RBC) [Ratio] 13.9 % Normal 11.0-15.0 [facility] Comment on above: Performed By: #### C BC #### [facility] [address] [place] [address] Dr. Aubrie Sadler Hematocrit (Bld) [Volume fraction] 34.6 % Critically low 42.0-54.0 [facility] Comment on above: Performed By: #### C BC #### [facility] [address] [place] [address] Dr. Aubrie Sadler Hemoglobin (Bld) [Mass/Vol] 11.4 g/dL Critically low 14.0-18.0 [facility] Comment on above: Performed By: #### C BC #### [facility] [address] [place] [address] Dr. Aubrie Sadler IG # 0.01 10e3/ul Normal 0.00-0.03 [facility] Comment on above: Performed By: #### C BC #### [facility] [address] [place] [address] Dr. Aubrie Sadler IG % 0.2 % Normal 0.0-0.5 [facility] Comment on above: Performed By: #### C BC #### [facility] [address] [place] [address] Dr. Aubrie Sadler LYMPH # 1.8 103/ul Normal 1.2-3.8 [facility] Comment on above: Performed By: #### C BC #### [facility] [address] [place] [address] Dr. Aubrie Sadler Lymphocytes/100 WBC (Bld) 31.4 % Normal 20.5-60.0 [facility] Comment on above: Performed By: #### C BC #### [facility] [address] [place] [address] Dr. Aubrie Sadler MANUAL DIFF REQ NO Normal [facility] Comment on above: Performed By: #### C BC #### [facility] [address] [place] [address] Dr. Aubrie Sadler MCH (RBC) [Entitic mass] 30.5 pg Normal 25.9-34.0 [facility] Comment on above: Performed By: #### C BC #### [facility] [address] [place] [address] Dr. Aubrie Sadler MCHC (RBC) [Mass/Vol] 32.9 g/dL Normal 29.9-35.2 [facility] Comment on above: Performed By: #### C BC #### [facility] [address] [address] [address] Aubrie Sadler MCV (RBC) [Entitic vol] 92.5 fL Normal 80.0-94.0 [facility] Comment on above: Performed By: #### C BC #### [facility] [address] [place] [address] Dr. Aubrie Sadler MONO # 0.6 103/ul Normal 0.3-0.8 [facility] Comment on above: Performed By: #### C BC #### [facility] [address] [place] [address] Dr. Aubrie Sadler Monocytes/100 WBC (Bld) 10.5 % Normal 1.7-12.0 [facility] Comment on above: Performed By: #### C BC #### [facility] [address] [place] [address] Dr. Aubrie Sadler NEUT # 3.1 103/ul Normal 1.4-6.5 [facility] Comment on above: Performed By: #### C BC #### [facility] [address] [place] [address] Dr. Aubrie Sadler Neutrophils/100 WBC (Bld) 55.4 % Normal 43.0-75.0 [facility] Comment on above: Performed By: #### C BC #### [facility] [address] [place] [address] Dr. Aubrie Sadler Platelet mean volume (Bld) [Entitic vol] 10.5 fL Normal 9.5-13.5 [facility] Comment on above: Performed By: #### C BC #### [facility] [address] [address] [address] Aubrie Sadler PLT 230 103/ul Normal 150-450 [facility] Comment on above: Performed By: #### C BC #### [facility] [address] [address] [address] Aubrie Sadler RBC 3.74 106/ul Critically low 4.70-6.10 [facility] Comment on above: Performed By: #### C BC #### [facility] [address] [address] [address] Aubrie Sadler WBC 5.6 103/ul Normal 4.0-11.0 [facility] Comment on above: Performed By: #### C BC #### [facility] [address] [address] [address] Aubrie Sadler FERRITINon 01-23-2021 Ferritin [Mass/Vol] 25.0 ng/mL Normal 17.9-464.0 [facility] Comment on above: Performed By: #### F OL, FETIBC, VITB12, FERR ####[facility] [address] [place] [address]Dr. Aubrie Sadler FOLATEon 01-23-2021 FOLATE 16.70 ng/mL Normal >=2.76 [facility] Comment on above: Performed By: #### F OL, FETIBC, VITB12, FERR ####[facility] [address] [place] [address]Dr. Aubrie Sadler IRON AND TIBCon 01-23-2021 % SATURATION 15.2 % Normal [facility] Comment on above: Performed By: #### F OL, FETIBC, VITB12, FERR ####[facility] [address] [place] [address]Dr. Aubrie Sadler Iron [Mass/Vol] 54.0 ug/dL Normal 49.0-181.0 [facility] Comment on above: Performed By: #### F OL, FETIBC, VITB12, FERR ####[facility] [address] [place] [address]Dr. Aubrie Sadler TIBC DIRECT 356.0 ug/dL Normal 261.0-497.0 [facility] Comment on above: Performed By: #### F OL, FETIBC, VITB12, FERR ####[facility] [address] [place] [id number]. Aubrie Sadler VITAMIN B12on 01-23-2021 Cobalamin (Vitamin B12) [Mass/Vol] 380.0 pg/mL Normal 239.0-931.0 [facility] Comment on above: Performed By: #### F OL, FETIBC, VITB12, FERR ####[facility] [address] [place] [id number]. Aubrie Sadler CBC AUTO DIFFon 10-23-2020 BASO # 0.1 103/ul Normal 0.0-0.1 [facility] Comment on above: Performed By: #### C BC #### [facility] [address] [place] [address] Marcus Rachel Basophils/100 WBC (Bld) 1.0 % Normal 0.2-2.0 [facility] Comment on above: Performed By: #### C BC #### [facility] [address] [place] [address] Marcus Rachel EO # 0.1 103/ul Normal 0.0-0.7 [facility] Comment on above: Performed By: #### C BC #### [facility] [address] [place] [address] Marcus Rachel Eosinophils/100 WBC (Bld) 2.0 % Normal 0.9-7.0 [facility] Comment on above: Performed By: #### C BC #### [facility] [address] [place], [place] [phone] Marcus Rachel Erythrocyte distribution width (RBC) [Ratio] 13.0 % Normal 11.0-15.0 [facility] Comment on above: Performed By: #### C BC #### [facility] [address] [place] [address] Marcus Rachel Hematocrit (Bld) [Volume fraction] 37.6 % Critically low 42.0-54.0 [facility] Comment on above: Performed By: #### C BC #### [facility] [address] [phone] Marcus Rachel Hemoglobin (Bld) [Mass/Vol] 12.3 g/dL Critically low 14.0-18.0 [facility] Comment on above: Performed By: #### C BC #### [facility] [address] [phone] Marcus Rachel IG # 0.01 10e3/ul Normal 0.00-0.03 [facility] Comment on above: Performed By: #### C BC #### [facility] [address] [place] [address] Marcus Rachel IG % 0.2 % Normal 0.0-0.5 [facility] Comment on above: Performed By: #### C BC #### [facility] [address] [place] [address] Marcus Rachel LYMPH # 1.8 103/ul Normal 1.2-3.8 [facility] Comment on above: Performed By: #### C BC #### [facility] [address] [place] [address] Marcus Rachel Lymphocytes/100 WBC (Bld) 36.0 % Normal 20.5-60.0 [facility] Comment on above: Performed By: #### C BC #### [facility] [address] [place] [address] Marcusbaldomero Farleyen MANUAL DIFF REQ NO Normal [facility] Comment on above: Performed By: #### C BC #### [facility] [address] [place] [address] Marcus Rachel MCH (RBC) [Entitic mass] 30.4 pg Normal 25.9-34.0 [facility] Comment on above: Performed By: #### C BC #### [facility] [address] [place], [place] [phone] Marcus Rachel MCHC (RBC) [Mass/Vol] 32.7 g/dL Normal 29.9-35.2 [facility] Comment on above: Performed By: #### C BC #### [facility] [address] [place], [place] [address] Marcus Ramos MCV (RBC) [Entitic vol] 93.1 fL Normal 80.0-94.0 [facility] Comment on above: Performed By: #### C BC #### [facility] [address] [phone] Marcus Ramos MONO # 0.6 103/ul Normal 0.3-0.8 [facility] Comment on above: Performed By: #### C BC #### [facility] [address] [phone] Marcus Ramos Monocytes/100 WBC (Bld) 11.8 % Normal 1.7-12.0 [facility] Comment on above: Performed By: #### C BC #### [facility] [address] [place], [place] [id number] Marcus Farleyen NEUT # 2.4 103/ul Normal 1.4-6.5 [facility] Comment on above: Performed By: #### C BC #### [facility] [address] [place], [place] [phone] Marcus Ramos Neutrophils/100 WBC (Bld) 49.0 % Normal 43.0-75.0 [facility] Comment on above: Performed By: #### C BC #### [facility] [address] [place], [place] [phone] Marcusbaldomero Ramos Platelet mean volume (Bld) [Entitic vol] 10.5 fL Normal 9.5-13.5 [facility] Comment on above: Performed By: #### C BC #### [facility] [address] [place], [place] [phone] Marcus Rachel PLT 233 103/ul Normal 150-450 [facility] Comment on above: Performed By: #### C BC #### [facility] [address] [place], [place] [phone] Marcus Rachel RBC 4.04 106/ul Critically low 4.70-6.10 [facility] Comment on above: Performed By: #### C BC #### [facility] [address] [place], [place] [phone] Marcus Rachel WBC 4.9 103/ul Normal 4.0-11.0 [facility] Comment on above: Performed By: #### C BC #### [facility] [address] [place] [address] Marcusbaldomero Farleyen FERRITINon 10-23-2020 Ferritin [Mass/Vol] 21.0 ng/mL Normal 17.9-464.0 [facility] Comment on above: Performed By: #### F ERR #### [facility] [address] [place] [address] Marcus Rachel LIPID PROFILEon 10-23-2020 CHOL-HDL RATIO NORM SEE BELOW Normal [facility] Comment on above: Result Comment: 3.3 - 4.4 LOW RISK 4.4 - 7.1 AVERAGE RISK 7.1 - 11.0 MODERATE RISK >11.0 HIGH RISK Performed By: #### B MP, LIPID #### [facility] [address] [place] [address] Marcus Rachel Cholesterol [Mass/Vol] 131 mg/dL Normal <=200 [facility] Comment on above: Performed By: #### B MP, LIPID #### [facility] [address] [place] [address] Marcus Rachel Cholesterol in HDL [Mass/Vol] 71 mg/dL Normal [facility] Comment on above: Performed By: #### B MP, LIPID #### [facility] [address] [place] [address] Marcus Rachel Cholesterol in LDL [Mass/Vol] 54.4 mg/dL Normal [facility] Comment on above: Performed By: #### B MP, LIPID #### [facility] [address] [place] [address] Marcus Rachel Cholesterol.total/Choles terol in HDL [Mass ratio] 1.8 {ratio} Normal [facility] Comment on above: Performed By: #### B MP, LIPID #### [facility] [address] [place] [address] Marcus Rachel HDL NORMAL > or = 60 mg/dl - LOW CARDIOVASCULAR RISK <40 mg/dl - HIGH CARDIOVASCULAR RISK Normal [facility] Comment on above: Performed By: #### B MP, LIPID #### [facility] [address] [place], [place] [address] Marcus Rachel LDL CALC NORMAL SEE BELOW Normal [facility] Comment on above: Result Comment: <100 mg/dl OPTIMAL 100 - 129 mg/dl NEAR OR ABOVE OPTIMAL 130 - 159 mg/dl BORDERLINE HIGH 160 - 189 mg/dl HIGH >190 mg/dl VERY HIGH Performed By: #### B MP, LIPID #### [facility] [address] [phone] Marcus Rachel Triglyceride [Mass/Vol] 28 mg/dL Normal <=150 T [facility] Comment on above: Performed By: #### B MP, LIPID #### [facility] [address] [phone] Marcus Rachel VLDL CALC 5.6 mg/dL Normal [facility] Comment on above: Performed By: #### B MP, LIPID #### [facility] [address] [place], [place] [phone] Marcus Rachel PROF CHEM 8 (BAS METB)on Anion gap [Moles/Vol] 9.7 mmol/L Normal [facility] Comment on above: Performed By: #### B MP, LIPID #### [facility] [address] [place], [place] [phone] Marucs Rachel Calcium [Mass/Vol] 8.9 mg/dL Normal 8.4-10.2 [facility] Comment on above: Performed By: #### B MP, LIPID #### [facility] [address] [phone] Marcus Rachel Chloride [Moles/Vol] 104 mmol/L Normal 98-107 [facility] Comment on above: Performed By: #### B MP, LIPID #### [facility] [address] [place], [place] [phone] Marcus Rachel CO2 [Moles/Vol] 30.9 mmol/L Critically high 22.0-30.0 [facility] Comment on above: Performed By: #### B MP, LIPID #### [facility] [address] [phone] Marcus Rachel Creatinine [Mass/Vol] 1.19 mg/dL Normal 0.66-1.25 [facility] Comment on above: Performed By: #### B MP, LIPID #### [facility] [address] [place], [place] [phone] Marcus Rachel EGFR-AF MAURITIAN >60 Normal >=60 [facility] Comment on above: Performed By: #### B MP, LIPID #### [facility] [address] [place], [place] [address] Marcus Rachel EGFR-NON AF MAURITIAN 58 mL/min/1.73m2 Critically low >=60 [facility] Comment on above: Performed By: #### B MP, LIPID #### [facility] [address] [place], [place] [address] Marcus Rachel Glucose [Mass/Vol] 93 mg/dL Normal 74-106 [facility] Comment on above: Performed By: #### B MP, LIPID #### [facility] [address] [place], [place] [address] Marcus Rachel Potassium [Moles/Vol] 3.6 mmol/L Normal 3.4-5.0 [facility] Comment on above: Performed By: #### B MP, LIPID #### [facility] [address] [place], [place] [phone] Marcus Rachel Sodium [Moles/Vol] 141 mmol/L Normal 137-145 [facility] Comment on above: Performed By: #### B MP, LIPID #### [facility] [address] [place], [place] [phone] Marcus Rachel Urea nitrogen [Mass/Vol] 14.0 mg/dL Normal 9.0-20.0 [facility] Comment on above: Performed By: #### B MP, LIPID #### [facility] [address] [place], [place] [phone] Marcus Rachel Urea nitrogen/Creatinine [Mass ratio] 11.8 mg/mg Normal [facility] Comment on above: Performed By: #### B MP, LIPID #### [facility] [address] [place], [place] [phone] Marcus Rachel Vital Signs Date Time Vital Sign Value Performing Clinician Faci lity 02-29-2024 11:24-0400 Body height 165.1 cm Polo Dechristophe r [employer] Work Phone: [facility] 02-29-2024 11:24-0400 Body mass index (BMI) [Ratio] 28.52 kg/m2 Polo Dechristopher [employer] Work Phone: [facility] 02-29-2024 11:24-0400 Body weight 77.75 kg Polo Dechristophe r [employer] Work Phone: [facility] 02-29-2024 11:24-0400 Diastolic blood pressure 62 mm[Hg] Polo Dechristopher [employer] Work Phone: [facility] 02-29-2024 11:24-0400 Heart rate 60 /min Polo Dechristophe r [employer] Work Phone: [facility] 02-29-2024 11:24-0400 Systolic blood pressure 114 mm[Hg] Polo Dechristopher [employer] Work Phone: [facility] 02-14-2024 14:23-0400 Body height 165.1 cm Beltran Duque MD Work Phone: [facility] 02-14-2024 14:23-0400 Body mass index (BMI) [Ratio] 28.96 kg/m2 Beltran Duque MD Work Phone: [facility] 02-14-2024 14:23-0400 Body weight 78.93 kg Beltran Duque MD Work Phone: [facility] 02-14-2024 14:23-0400 Diastolic blood pressure 62 mm[Hg] Beltran Duque MD Work Phone: [facility] 02-14-2024 14:23-0400 Heart rate 65 /min Beltran Duque MD Work Phone: [facility] 02-14-2024 14:23-0400 Systolic blood pressure 115 mm[Hg] Beltran Duque MD Work Phone: [facility] 02-03-2024 09:33-0400 Body height 175.26 cm [facility] 02-03-2024 09:33-0400 Body mass index (BMI) [Ratio] 25.4 kg/m2 [facility] 02-03-2024 09:33-0400 Body weight 78.01 kg [facility] 02-03-2024 09:33-0400 Diastolic blood pressure 66 mm[Hg] [facility] 02-03-2024 09:33-0400 Heart rate 64 /min [facility] 02-03-2024 09:33-0400 Systolic blood pressure 117 mm[Hg] [facility] 09-26-2023 13:50-0400 Body height 175.26 cm [facility] 09-26-2023 13:50-0400 Body mass index (BMI) [Ratio] 25.6 kg/m2 [facility] 09-26-2023 13:50-0400 Body weight 78.64 kg [facility] 09-26-2023 13:50-0400 Diastolic blood pressure 57 mm[Hg] [facility] 09-26-2023 13:50-0400 Heart rate 77 /min [facility] 09-26-2023 13:50-0400 Respiratory rate 12 /min [facility] 09-26-2023 13:50-0400 Systolic blood pressure 116 mm[Hg] [facility] 08-02-2023 11:18-0400 Body height 175.26 cm [facility] 08-02-2023 11:18-0400 Body mass index (BMI) [Ratio] 24.7 kg/m2 [facility] 08-02-2023 11:18-0400 Body weight 75.97 kg [facility] 08-02-2023 11:18-0400 Diastolic blood pressure 67 mm[Hg] [facility] 08-02-2023 11:18-0400 Heart rate 77 /min [facility] 08-02-2023 11:18-0400 Respiratory rate 12 /min [facility] 08-02-2023 11:18-0400 Systolic blood pressure 130 mm[Hg] [facility] 05-18-2023 09:15-0500 Body height 175.26 cm Jaison Ball Other [facility] 05-18-2023 09:15-0500 Body mass index (BMI) [Ratio] 25.25 kg/m2 Jaison Ball Other [facility] [employer] Other 05-18-2023 09:15-0500 Body weight 77.57 kg Jaison Ball Other [facility] [employer] Other 05-18-2023 09:15-0500 Body weight 77.56 kg [facility] 05-18-2023 09:15-0500 Diastolic blood pressure 76 mm[Hg] Jaison Ball Other [facility] 05-18-2023 09:15-0500 Respiratory rate 12 /min Jaison Ball Other [facility] [employer] Other 05-18-2023 09:15-0500 Systolic blood pressure 142 mm[Hg] Jaison Ball Other [facility] 02-01-2023 11:00-0400 Body height 175.26 cm Jaison Ball Other [employer] Other 02-01-2023 11:00-0400 Body mass index (BMI) [Ratio] 25.13 kg/m2 Jaison Ball Other [facility] Other 02-01-2023 11:00-0400 Body weight 77.2 kg Jaison Ball Other [facility] Other 02-01-2023 11:00-0400 Diastolic blood pressure 67 mm[Hg] Jaison Ball Other [facility] Other 02-01-2023 11:00-0400 Respiratory rate 12 /min Jaison Ball Other [facility] Other 02-01-2023 11:00-0400 Systolic blood pressure 122 mm[Hg] Jaison Ball Other [facility] Other 11-03-2022 13:45-0400 Body height 175.26 cm Jaison Ball Other [facility] Other 11-03-2022 13:45-0400 Body mass index (BMI) [Ratio] 25.1 kg/m2 Jaison Ball Other [facility] Other 11-03-2022 13:45-0400 Body weight 77.11 kg Jaison Ball Other [facility] Other 11-03-2022 13:45-0400 Diastolic blood pressure 56 mm[Hg] Jaison Ball Other [facility] Other 11-03-2022 13:45-0400 Respiratory rate 12 /min Jaison Ball Other [facility] Other 11-03-2022 13:45-0400 Systolic blood pressure 108 mm[Hg] Jaison Ball Other [facility] Other 08-03-2022 12:00-0400 Body height 175.26 cm Jaison Ball Other [facility] Other 08-03-2022 12:00-0400 Body mass index (BMI) [Ratio] 25.04 kg/m2 Jaison Ball Other [facility] Other 08-03-2022 12:00-0400 Body weight 76.93 kg Jaison Ball Other [facility] Other 08-03-2022 12:00-0400 Diastolic blood pressure 66 mm[Hg] Jaison Ball Other [facility] Other 08-03-2022 12:00-0400 Respiratory rate 12 /min Jaison Ball Other [facility] Other 08-03-2022 12:00-0400 Systolic blood pressure 114 mm[Hg] Jaison Ball Other [facility] Other 06-24-2022 11:00-0500 Body height 175.26 cm Jaison Ball Other [facility] Other 06-24-2022 11:00-0500 Body mass index (BMI) [Ratio] 25.28 kg/m2 Jaison Ball Other [facility] Other 06-24-2022 11:00-0500 Body weight 77.66 kg Jaison Ball Other [facility] Other 06-24-2022 11:00-0500 Diastolic blood pressure 70 mm[Hg] Jaison Ball Other [facility] Other 06-24-2022 11:00-0500 Respiratory rate 12 /min Jaison Ball Other [facility] Other 06-24-2022 11:00-0500 Systolic blood pressure 118 mm[Hg] Jaison Ball Other [facility] Other Encounters Encounter Date Encounter Type Care Provider Facility Start: 03-05-2024 End: 03-05-2024 [facility] Start: 02-29-2024 End: 02-29-2024 Office outpatient visit 15 minutes Polo GARZA Work Phone: [facility] Comment on above: PAF (paroxysmal atri al fibrillation) (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 Work Phone: Start: 02-03-2024 End: 02-03-2024 Patient encounter procedure [facility] Physician [facility] Work Phone: Start: 01-31-2024 Patient encounter procedure [facility] Start: 09-26-2023 End: 09-26-[address] [facility] Work Phone: Start: 09-26-2023 End: 09-26-2023 Patient encounter procedure [facility] Physician [facility] Work Phone: Start: 09-23-2023 Non-patient / Non-visit [facility] Physician [facility] Work Phone: Start: 09-22-2023 Non-patient / Non-visit [facility] Physician [facility] Work Phone: Start: 09-21-2023 Non-patient / Non-visit [facility] Physician [facility] Work Phone: Start: 09-20-2023 Non-patient / Non-visit [facility] [employer] Work Phone: Start: 08-02-2023 End: 08-02-[address] [facility] Work Phone: Start: 08-02-2023 End: 08-02-2023 Patient encounter procedure [facility] Physician [facility] Work Phone: Start: 06-27-2023 End: 06-27-2023 ambulatory STACEY A PETITTI Not Available Start: 05-26-2023 End: 05-26-2023 ambulatory STACEY A PETITTI Not Available Start: 05-18-2023 End: 05-18-2023 ambulatory Jaison Purvis Other [facility] Other Start: 05-18-2023 Office outpatient vi sit 15 minutes Jaison Ball [facility] Start: 05-18-2023 End: 05-18-2023 Patient encounter procedure [facility] Phys[facility] Work Phone: Start: 03-25-2023 End: 03-25-2023 ambulatory Jaison Ball Other [facility] Other Start: 03-25-2023 Office outpatient vi sit 15 minutes Jaison Ball [facility] Start: 02-10-2023 End: 02-10-2023 ambulatory Jaison Ball Other [facility] Other Start: 02-10-2023 Telephone encounter Jaison Yaniv [facility] Start: 02-01-2023 End: 02-01-2023 ambulatory Jaison Ball Other [facility] Other Start: 02-01-2023 Patient encounter procedure Jaison Ball [facility] Start: 11-03-2022 End: 11-03-2022 ambulatory Jaison Ball Other [facility] Other Start: 11-03-2022 Office outpatient vi sit 15 minutes Jaison Purvis [facility] Start: 08-03-2022 End: 08-03-2022 ambulatory Jaison Purvis Other [facility] Other Start: 08-03-2022 Office outpatient vi sit 25 minutes Jaison Purvis [facility] Start: 06-24-2022 End: 06-24-2022 ambulatory Jaison Purvis Other [facility] Other Start: 06-24-2022 Office outpatient vi sit 15 minutes Jaison Purvis [facility] Start: 05-30-2021 End: 05-31-[address] JAISON PURVIS Facility:[facility] Start: 04-16-2021 End: 04-17-[address] JAISON PURVIS Facility:[facility] Start: 01-28-2021 End: 01-28-[address] JAISON PURVIS Facility:[facility] Start: 01-23-2021 End: 01-24-[address] JAISON PURVIS Facility:[facility] Start: 10-23-2020 End: 10-24-[address] JAISON PURVIS Facility:[facility] Start: 07-08-2020 End: 07-09-[address] ESTRADA LISTED REQUEST Facility:[facility] Start: 06-10-2020 End: 06-11-2020 ambulatory AMY MCCOLLUM Facility:[facility] Procedures Date Procedure Procedure Detail Performing Clinician Start: 02-29-2024 Ecg routine ecg w/le ast 12 lds w/i&r Polo Rincon [employer] Work Phone: Start: 02-29-2024 Follow-up visit Follow-up POLO RINCON Start: 02-14-2024 Follow-up visit Follow-up BELTRAN DUQUE Plan of Treatment Date Care Activity Detail Author Start: 02-28-2025 Adult BMI Screening Adult BMI Screening [facility] Start: 02-28-2025 Tobacco Screening Tobacco Screening [facility] Start: 02-13-2025 Adult BMI Screening Adult BMI Screening [facility] Start: 02-13-2025 Tobacco Screening Tobacco Screening [facility] Start: 02-13-2025 End: 02-13-2026 XR Abdomen AP X-ray abdomen ap 1 view Imaging Routine Kidney stone Expected: 02/13/2025, Expires: 02/13/2026 [employer] Work Phone: Comment on above: Expected: 02/13/2025, Expires: Start: 02-12-2025 End: 02-12-2025 Patient encounter procedure 02/12/2025 1:45 PM EDT Office Visit [facility] [address] [place] [address] [place] [address] [phone] Beltran Duque MD [address] [place] [address] [facility] Start: 04-12-2024 End: 04-12-2024 Patient encounter procedure 04/12/2024 9:30 AM EST Appointment [facility] - [facility] [address] [place] [phone] Polo Rincon, [employer] [address] [place] [address] [facility] Start: 03-26-2024 End: 03-26-2024 Patient encounter procedure 03/26/2024 11:00 AM EST Office Visit [facility] [address] [place] [phone] Kenneth Zaidi, [employer] [address] [place] [address] [facility] Start: 03-22-2024 Adult BMI Screening Adult BMI Screening [facility] Start: 03-22-2024 Tobacco Screening Tobacco Screening [facility] Start: 03-12-2024 End: 03-12-2024 Patient encounter procedure 03/12/2024 10:00 AM EST Office Visit [facility] [address] [place] [phone] [facility] [place] Start: 03-05-2024 End: 03-05-2024 Patient encounter procedure 03/05/2024 10:30 AM EDT Appointment [facility] [address] [place] [id number] [facility] Start: 02-29-2024 End: 02-28-2025 Echo complete W/O contrast Echo complete W/O contrast Echocardiography Routine PAF (paroxysmal atrial fibrillation) [place] Expected: 02/29/2024, Expires: 02/28/2025 [employer] Work Phone: Comment on above: Expected: 02/29/2024, Expires: Start: 02-29-2024 End: 02-29-2024 Clinical Support [facility] Start: 02-06-2024 DTaP,Tdap and Td Vaccines (3 - Td or Tdap) DTaP,Tdap and Td Vaccines (3 - Td or Tdap) [facility] Start: 09-20-2023 Blood Culture 1 Blood Culture 1 [facility] Start: 09-20-2023 Blood Culture 2 Blood Culture 2 [facility] Start: 12-22-2000 Fall Risk Screening Fall Risk Screening [facility] Start: 12-22-1985 Administration of varicella zoster vaccine Zoster (Shingles) Vaccine (1 of 2) [facility] Start: 1947 Depression Screening Depression Screening [facility] Start: 1935 Medicare Annual Wellness Visit Medicare Annual Wellness Visit [facility] Comprehensive metabo lic 2000 panel - Serum or Plasma [facility] POCT EKG POCT EKG ECG Rou pawel PAF (paroxysmal atrial fibrillation) [place] 02/29/2024 2:13 PM EDT [employer] Work Phone: [facility] Immunizations Immunization Date Immunization Notes Care Provider Fa cility 02-01-2023 influenza virus vaccine, unspecified formulation [facility] 02-01-2023 influenza, high dose seasonal, preservative-free Jaison Ball Other [facility] [employer] Other 02-27-2022 COVID-19 Pfizer (Pediatric) Jaison Purvis Other [facility] 01-26-2022 influenza virus vaccine, split virus (incl. purified surface antigen) Jaison Purivs Other [facility] [employer] Other 01-26-2022 influenza virus vaccine, unspecified formulation [facility] 10-29-2021 pneumococcal polysaccharide vaccine, 23 valent Jaison Purvis Other [facility] 02-17-2021 influenza virus vaccine, split virus (incl. purified surface antigen) Jaison Purvis Other [facility] [employer] Other 02-17-2021 influenza virus vaccine, unspecified formulation [facility] 02-06-2020 influenza virus vaccine, split virus (incl. purified surface antigen) Jaison Purvis Other [facility] [employer] Other 02-06-2020 influenza virus vaccine, unspecified formulation [facility] 02-21-2019 influenza virus vaccine, split virus (incl. purified surface antigen) Jaison Purvis Other [facility] Other 02-21-2019 influenza virus vaccine, unspecified formulation [facility] 02-10-2018 influenza virus vaccine, split virus (incl. purified surface antigen) Jaison Purvis Other [facility] [employer] Other 02-10-2018 influenza virus vaccine, unspecified formulation [facility] 03-02-2017 influenza virus vaccine, split virus (incl. purified surface antigen) Jaison Purvis Other [facility] Other 03-02-2017 influenza virus vaccine, unspecified formulation [facility] 02-20-2016 pneumococcal conjuga te vaccine, 13 valent Jaison Purvis Other [facility] 02-12-2016 influenza virus vaccine, split virus (incl. purified surface antigen) Jaison Purvis Other [facility] [employer] Other 02-12-2016 influenza virus vaccine, unspecified formulation [facility] 02-28-2015 influenza virus vaccine, split virus (incl. purified surface antigen) Jaison Yaniv Other [facility] [employer] Other 02-28-2015 influenza virus vaccine, unspecified formulation [facility] 02-05-2014 tetanus and diphther ia toxoids, adsorbed, preservative free, for adult use (5 Lf of tetanus toxoid and 2 Lf of diphtheria toxoid) Jaison Purvis Other [facility] 01-24-2013 tetanus and diphther ia toxoids, adsorbed, preservative free, for adult use (5 Lf of tetanus toxoid and 2 Lf of diphtheria toxoid) Jaison Yaniv Other [facility] 04-13-1995 pneumococcal polysaccharide vaccine, 23 valent Jaison Purvis Other [facility] Payers Date Payer Category Payer Unknown [id number] 2010 Managed Care Other (unspecified) COMMERCIAL Member Subscriber Plan / Payer (Effective 2010-Present) Name: Elisabeth Bo Relation to Subscriber: Self Name: Elisabeth Bo Payer ID: Not on file Group ID: [id number] Type: Not on file Address: [address] [place] [id number] 2010 Unknown COMMERCIAL COMME RCIAL - GENERIC PLAN [id number] 2010-Present [phone] [address] [place] [address] [id number] 2000 Medicare [id number] 1959 Medicare [id number] 1959 Self-pay 1959 Unknown [id number] 1935 Unknown [id number] .593 1935 Unknown [id number] .593 1935 Unknown [id number] [id number] .593 1935 Unknown [id number] [id number] .593 1935 Unknown [id number] [id number] .593 1935 Unknown [id number] [id number] .1259 1935 Unknown [id number] [id number] .1259 1935 Unknown [id number] [id number] .1286 1935 Unknown [id number] [id number] .1286 1935 Unknown [id number] [id number] .1286 1935 Unknown [id number] [id number] .1286 1935 Unknown [id number] [id number] .1286 Unknown [id number] [id number] .593 Unknown [id number] .593 Social History Date Type Detail Facility Unknown if ever smoked [facility] Other Start: 05-21-2020 End: 02-14-2024 Sex Assigned At [facility] Start: 05-18-2023 Tobacco smoking stat [facility] Ex-smoker (finding) [facility] Start: 1935 Sex Assigned At Male F [facility] Start: 02-22-2022 Tobacco smoking stat [facility] Never smoked tobacco [facility] Start: 02-22-2022 Tobacco use and exposure Smokeless tobacco non-user [facility] Start: 02-14-2024 End: 02-29-2024 Alcoholic beverage intake Current non-drinker of alcohol (finding) [facility] Start: 05-21-2020 End: 02-14-2024 History of Social function [facility] Childcare Unknown [facility] Start: 1935 Sex assigned at Not on file [facility] Start: 12-12-2014 Sex Male (finding) [facility] Medical Equipment Procedure Code Equipment Code Equipment Origin al Text Equipment Identifier Dates Lead Capsure Fix Novus 5076-58 - [id number] - [id number] Start: 03-28-2020 Lead Capsure Fix Novus 5076-52 - [id number] - [id number] Start: 03-28-2020 Ld Pcng 88cm Lv Qdpl Atn Stab - [id number] - [id number] Start: 03-28-2020 Cardiac pacemaker, device (physical object) ([id number]) Pcmkr Crtp Mri Qd Percepta - [id number] - [id number] Start: 03-28-2020 Clinical Notes 06-24-2022 to 02-29-2024 Polo Rincon APRN-ELAINE - 02/29/2024 11:30 AM Holley Norris MD - 02/29/2024 11:00 AM EDTTelephone Encounter - Antonia Hollis CMA - 02/28/2024 9:34 AM EDT Note Date & Type Note Facility 02-29-2024 History of Presen t illness Narrative Elisabeth Bo Date of visit: 02/29/2024 Date of : 1935 Age: 88 y.o. Patient Active Problem List Diagnosis Benign essential hypertension Bradycardia Chronic coronary artery disease Hyperlipidemia Paroxysmal atrial fibrillation (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 Nonischemic cardiomyopathy [place] Encounter for post surgical wound check Pericardial effusion Presence of biventricular cardiac pacemaker- Medtronic High risk medication use Kidney stone Epididymal cyst Angina pectoris, unstable ([facility] Carotid stenosis Chest pain Heart failure with improved ejection fraction (HFimpEF) ([facility] Hypertension Sick sinus syndrome ([facility] Syncope Syncope due to orthostatic hypotension Allergies Allergen Reactions Dronedarone Other (See Comments) Other reaction(s): Multaq Loss of appetite, weight loss Other Reaction(s): Gastrointestinal Upset Other reaction(s): Multaq Loss of appetite, weight loss Ciprofloxacin Other Reaction(s): Unknown Reaction Morphine Other (See Comments) and Vomiting Other reaction(s): Intolerance-unknown Tomato Penicillins Rash Other reaction(s): Intolerance-unknown Sulfa (Sulfonamide Antibiotics) GI Disturbance Other reaction(s): Sulfa Current Outpatient Medications Medication Sig Dispense Refill apixaban (ELIQUIS) 5 mg tablet Take 1 tablet (5 mg total) by mouth in the morning and 1 tablet (5 mg total) before bedtime. ascorbic acid, vitamin C, (VITAMIN C) 500 mg tablet Take 1 tablet (500 mg total) by mouth in the morning. atorvastatin (LIPITOR) 10 mg tablet Take 1 tablet (10 mg total) by mouth in the morning. bilberry 100 mg capsule Take 100 mg by mouth daily. carboxymethylcellulose sodium (REFRESH OPHT) Instill 1 drop to eye 3 (three) times a day. cranberry conc-ascorbic acid 4,200-20 mg capsule Take 1 capsule by mouth in the morning. dilTIAZem CD (CARDIZEM CD) 180 mg 24 hr capsule Take 1 capsule (180 mg total) by mouth daily. 60 capsule 6 flecainide (TAMBOCOR) 100 mg tablet Take 1 tablet (100 mg total) by mouth 2 (two) times a day. 180 tablet 3 garlic 1,000 mg capsule Take by mouth daily. herbal drugs capsule daily. Ginseng 100 mg herbal drugs capsule Take by mouth. Balance of Nature hydroCHLOROthiazide (HYDRODIURIL) 12.5 mg tablet Take 1 tablet (12.5 mg total) by mouth daily. IFEREX 150 150 mg iron capsule Take 1 capsule (150 mg total) by mouth every other day. ipratropium (ATROVENT) 0.06 % nasal spray Administer 1 spray into each nostril in the morning and 1 spray before bedtime. 11 lisinopriL (PRINIVIL,ZESTRIL) 5 mg tablet Take 1 tablet (5 mg total) by mouth in the morning. olopatadine (PATANOL) 0.1 % ophthalmic solution Administer 1 drop to both eyes in the morning and 1 drop before bedtime. omeprazole (PriLOSEC) 20 mg capsule Take 1 capsule (20 mg total) by mouth in the morning. No current facility-administered medications for this visit. 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 He is here today for routine office visit and device check. Patient states yesterday and today he feels quite lousy - fatigue, shortness of breath. Usually he is quite active. He lives at home by himself. He does his housework, yd work. Patient states he does not sit down much. EKG today in office shows atrial fibrillation with ventricular pacing Device trends showed an increase in atrial fibrillation episodes in January, February. He remains on flecainide for rhythm suppression Past Medical History: Diagnosis Date Arthritis Atrial fibrillation BPH (benign prostatic hyperplasia) CAD (coronary artery disease) Chest pain Dizziness Hearing loss Heart failure with improved ejection fraction (HFimpEF) [place] 02/20/2024 Hyperlipidemia Hypertension Kidney stone Palpitations SOB (shortness of breath) No data recorded No data recorded No data recorded Past Surgical History: Procedure Laterality Date BACK SURGERY BiV PPm implant - MDT N/A 03/28/2020 Performed by Destin Norris MD at [facility] () CARDIAC CATHETERIZATION 06/09/12 Left Cath, LV Gram, Coronary Angio CHOLECYSTECTOMY COLONOSCOPY Couple months ago 04/11/2020, polypectomy INGUINAL HERNIA REPAIR KNEE SURGERY TRANSURETHRAL RESECTION OF PROSTATE Family History Problem Relation Age of Onset Heart attack Father No Known Problems Mother Social History Socioeconomic History Marital status: Spouse name: Not on file Number of children: Not on file Years of education: Not on file Highest education level: Not on file Occupational History Not on file Tobacco Use Smoking status: Never Smokeless tobacco: Never Vaping Use Vaping status: Never Used Substance and Sexual Activity Alcohol use: No Drug use: No Sexual activity: Defer Other Topics Concern Caffeine Use Yes Comment: couple of cups first thing in the morning Social History Narrative Not on file Social Drivers of Health Financial Resource Strain: Not on file Food Insecurity: No Food Insecurity (02/14/2024) Hunger Screening Food Insecurity - Worry: Never True Food Insecurity - Inability: Never True Transportation Needs: Not on file Physical Activity: Not on file Stress: Not on file Social Connections: Not on file Interpersonal Safety: Not on file Housing Instability: Not on file Review of Systems Review of Systems Constitutional: Negative for malaise/fatigue. HENT: Negative for nosebleeds. Respiratory: Positive for shortness of breath. Negative for cough and hemoptysis. Hematologic/Lymphatic: Does not bruise/bleed easily. Musculoskeletal: Negative for falls, joint swelling, muscle cramps and muscle weakness. Gastrointestinal: Negative for hematochezia. Genitourinary: Negative for hematuria. Neurological: Positive for dizziness and light-headedness. Negative for headaches. CARDIOVASCULAR: Please review HPI. Physical Examination General appearance: Alert, oriented and cooperative. In no acute distress. Skin: Warm and dry to touch. Head: Normocephalic, without obvious abnormality, atraumatic. Eyes: Conjunctivae unremarkable, EOM intact. Neck: No JVD Respiratory: Clear to auscultation bilaterally, no use of accessory muscles. Cardiovascular: RRR with normal S1 and S2 with no murmurs. Musculoskeletal: No peripheral edema. Neurologic: Oriented to time, person and place, affect appropriate. No focal/major motor defects noted. Psychiatric: Appropriate mood, memory and judgement. VITAL SIGNS: BP 114/62 (BP Site: Left Arm, BP Postition: Sitting, BP CUFF SIZE: M (9-13 inches)) Pulse 60 Ht 165.1 cm (5' 5 ) Wt 77.7 kg (171 lb 6.4 oz) BMI 28.52 kg/m Orders Placed or Reconciled This Encounter Medications hydroCHLOROthiazide (HYDRODIURIL) 12.5 mg tablet Sig: Take 1 tablet (12.5 mg total) by mouth daily. olopatadine (PATANOL) 0.1 % ophthalmic solution Sig: Administer 1 drop to both eyes in the morning and 1 drop before bedtime. carboxymethylcellulose sodium (REFRESH OPHT) Sig: Instill 1 drop to eye 3 (three) times a day. herbal drugs capsule Sig: Take by mouth. Balance of Nature Medications Discontinued During This Encounter Medication Reason ALOE VERA ORAL Patient Stopped On Own lisinopril-hydroCHLOROthiazide (PRINZIDE,ZESTORETIC) 10-12.5 mg per tablet Discontinued by another clinician IMPRESSIONS/PLAN 1. PAF (paroxysmal atrial fibrillation) ([facility]) - POCT EKG - Echo complete W/O contrast; Future 2. Presence of biventricular cardiac pacemaker - Device Interrogation; Future Paroxysmal atrial fibrillation Nonischemic cardiomyopathy First-degree AV block Left bundle-branch block Medtronic biventricular pacemaker 2019 Device check today shows DDD R 60/130. AP 71%, biventricular pacing 99%. Slight increase in LV threshold. Battery remaining 2-4 years. No ventricular detects. Episode of atrial fibrillation ongoing today. Merna 1.6%. Does have home monitor. Will continue remote device checks. High risk medication/flecainide use Will repeat TTE Patient is symptomatic with atrial fibrillation with fatigue, activity intolerance. Patient states he just continues to push through the. Discussed options of transitioning to amiodarone versus continuing current regimen. He is hesitant to transition to amiodarone as he was told this was a bad medication. Continue apixaban 5 mg b.i.d. given weight, creatinine. We did also discuss that if patient does not spontaneously convert, would recommend cardioversion which he is agreeable to pursue if needed. Will do remote device check in 1 week to assess rhythm. Patient was seen when Dr Benavides was present and immediately available in office suite. TODAYS ORDERS Orders Placed This Encounter Procedures Device Interrogation POCT EKG Echo complete W/O contrast FOLLOW UP Return in about 2 months (around 04/30/2024). PCP: JAISON PURVIS DO Referring Physician: Jaison Purvis DO [facility] [place] [address] GREG Roy 02/29/24 1414 documented in this encounter [facility] 02-29-2024 History of Presen t illness Narrative I agree with the findings in the scanned document. documented in this encounter [facility] 02-28-2024 Miscellaneous Notes Left message for patient to remind them to bring their most current medication list with them to their appointment. documented in this encounter [facility] 02-28-2024 Telephone encounter Note Left message for patient to remind them to bring their most current medication list with them to their appointment. [facility] 02-14-2024 History of Presen t illness Narrative Images from the original note were not included. [address] [place] [id number] Patient: Elisabeth Bo Date of : 1935 Encounter Date: 02/14/2024 History of Present Illness: Chief Complaint: Follow up The patient is a 88 y.o. male, an established patient, and is here for followup. He has a history of recurrent kidney stones since the . Last kub was in October 2022 showing possible faint calcifications. He did a KUB today which we reviewed showing no significant stone burden. Summary of old records: Urinalysis today: No results for input(s): EXTPOCURCO , EXTPOCURCH , EXTPOCAPP , EXTPOCURBS , EXTPOCURBIL , EXTPOCUKET , EXTPOCUSPG , EXTPOCUHGB , EXTPOCUPRO , EXTPOCUURO , EXTPOCULEU , EXTPOCUNIT , EXTPOCUWBC , EXTPOCUBLD , EXTPOCURBC , EXTPOCUCRY , EXTPOCUBAC , EXTPOCUTREP , EXTPOCUPH , EXTPOCULEE in the last 72 hours. Last BUN and creatinine: Lab Results Component Value Date BUN 17 03/29/2020 Lab Results Component Value Date CREATININE 1.10 03/29/2020 Last PSA: No results found for: PSA No results found for: PROSTATICSP Additional Lab/Culture results: None Imaging Reviewed during this Office Visit: None (Results were independently reviewed by physician and radiology report verified) Past Medical, Family, and Social History Update: The following portions of the patient's history were reviewed and updated as appropriate: allergies, current medications, past family history, past medical history, past social history, past surgical history and problem list. Past Medical History: Diagnosis Date Arthritis Atrial fibrillation BPH (benign prostatic hyperplasia) CAD (coronary artery disease) Chest pain Dizziness Hearing loss Hyperlipidemia Hypertension Kidney stone Palpitations SOB (shortness of breath) Past Surgical History: Procedure Laterality Date BACK SURGERY BiV PPm implant - MDT N/A 03/28/2020 Performed by Destin Norris MD at [facility] (EP) CARDIAC CATHETERIZATION 06/09/12 Left Cath, LV Gram, Coronary Angio CHOLECYSTECTOMY COLONOSCOPY Couple months ago 04/11/2020, polypectomy INGUINAL HERNIA REPAIR KNEE SURGERY TRANSURETHRAL RESECTION OF PROSTATE Family History Problem Relation Age of Onset Heart attack Father No Known Problems Mother Current Outpatient Medications Medication Sig Dispense Refill ALOE VERA ORAL Take 600 mg by mouth in the evening. apixaban (ELIQUIS) 5 mg tablet Take 1 tablet (5 mg total) by mouth in the morning and 1 tablet (5 mg total) before bedtime. ascorbic acid, vitamin C, (VITAMIN C) 500 mg tablet Take 1 tablet (500 mg total) by mouth in the morning. atorvastatin (LIPITOR) 10 mg tablet Take 1 tablet (10 mg total) by mouth in the morning. bilberry 100 mg capsule Take 100 mg by mouth daily. cranberry conc-ascorbic acid 4,200-20 mg capsule Take 1 capsule by mouth in the morning. dilTIAZem CD (CARDIZEM CD) 180 mg 24 hr capsule Take 1 capsule (180 mg total) by mouth daily. 60 capsule 6 flecainide (TAMBOCOR) 100 mg tablet Take 1 tablet (100 mg total) by mouth 2 (two) times a day. 180 tablet 3 garlic 1,000 mg capsule Take by mouth daily. herbal drugs capsule daily. Ginseng 100 mg IFEREX 150 150 mg iron capsule Take 1 capsule (150 mg total) by mouth every other day. ipratropium (ATROVENT) 0.06 % nasal spray Administer 1 spray into each nostril in the morning and 1 spray before bedtime. 11 lisinopriL (PRINIVIL,ZESTRIL) 5 mg tablet Daily omeprazole (PriLOSEC) 20 mg capsule Take 1 capsule (20 mg total) by mouth in the morning. lisinopril-hydroCHLOROthiazide (PRINZIDE,ZESTORETIC) 10-12.5 mg per tablet Take 1 tablet by mouth in the morning. (Patient not taking: Reported on 02/14/2024) No current facility-administered medications for this visit. (All medications reviewed and updated by provider since last office visit or hospitalization) Allergies: Dronedarone, Morphine, Tomato, Penicillins, and Sulfa (sulfonamide antibiotics) Tobacco History: Social History Tobacco Use Smoking Status Never Smokeless Tobacco Never (If patient a smoker, smoking cessation counseling offered) Social History: Social History Substance and Sexual Activity Alcohol Use No Review of Systems: General: Negative for chills and fever. Cardiovascular: Negative for chest pain and shortness of breath. Gastrointestinal: Negative for constipation, diarrhea, nausea, and vomitting. -per HPI Physical Exam: BP 115/62 Pulse 65 Ht 165.1 cm (5' 5 ) Wt 78.9 kg (174 lb) BMI 28.96 kg/m Assessment and Plan: Elisabeth was seen today for follow-up. Diagnoses and all orders for this visit: Kidney stone Problem List Genitourinary Kidney stone - Primary Overview 06/02/21: History of recurrent kidney stones with 3 mm nonobstructing stone on CT with left lower back pain. Given the patient's history and description of the pain as well as lack of hematuria and CT findings I told him that the stone does not appear to be the cause of his pain and treating this will not improve things. I agree with the patient that I suspect this is much more musculoskeletal in nature. He previously had to lower back surgeries. He is going to contact Dr Purvis/ May benefit from PT 10/12/22: History of abrupt onset of increased urinary frequency, perineal discomfort and urinary spraying which abruptly resolved. Suspect based on his negative culture that he had a distal ureteral calculus or possibly a stone that lodged within the urethra. Given that his PVR is minimal I suspect he does not have a primary bladder stone. We are going to get a KUB to assess for any additional stones. At baseline voids well with no plans for additional intervention unless symptoms progress. 02/14/24: kub with no new stones. Recheck 1 year Follow-up: Beltran Duque MD This note was created with the assistance of a speech recognition program. While intending to generate a timely document that accurately reflects the content of the visit, no guarantee can be provided that every grammatical or spelling mistake has been or will be identified or corrected. Thank you for your understanding. documented in this encounter [facility] 02-08-2024 Note XR ABDOMEN AP 1 VW CLINICAL INFORMATION: Kidney stone TECHNIQUE/PROCEDURE: Supine view abdomen COMPARISON: 10/12/2022 FINDINGS: Nonobstructive bowel gas pattern. Moderate fecal loading. Overlying enteric contents decrease sensitivity for nephrolithiasis. No definite urinary tract calculus is identified. Stable phleboliths in the pelvis. Degenerative changes are age compatible. IMPRESSION: No radiographic evidence of nephrolithiasis given the limitations of overlying enteric contents. Finalized by Evans Kenney MD on 02/08/2024 8:37 AM [facility] 05-18-2023 Evaluation note Encounter Date Diagnosis Assessment Notes May, 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 May, Trigger ring finger of right hand (ICD-10 - M65.341) Soak in warm water, Voltaren Gel. Discussed injection or surgery, which would require referral to [facility] [employer] Other 11-17-2023 Evaluation note* Encounter Date Diagnosis Assessment Notes Treatment Notes Treatment Clinical Notes Mar, COVID-19 (ICD-10 - U07.1) Instructed [...] in the past has resulted in AF. [facility] Other 09-26-2023 Evaluation note* Encounter Date Diagnosis Assessment Notes Treatment Notes Treatment Clinical Notes Jan, Medicare annual wellness visit, subsequent [...] are maintaining regular scheduled appts with their set off blocker. No bleeding complications Jan, Primary hypertension (ICD-10 [...] not improve w/ course of antibiotics. Suspect spermatocele/vericoc talisha US ordered [facility] Other 06-28-2023 Evaluation note* Encounter Date Diagnosis Assessment Notes Treatment Notes Treatment Clinical Notes Oct, Epididymoorchitis (ICD-10 - N45.3) No s/s torsion or testicular mass No s/s hernia Avoid strenuous activity. Supportive garments. Push fluids Begin antibiotics. Oct, Left nephrolithiasis (ICD-10 - N20.0) Push fluids Avoid dark pop. f/u Urology [facility] Other 03-28-2023 Evaluation note* Encounter Date Diagnosis Assessment Notes Treatment Notes Treatment Clinical Notes Jul, Paroxysmal atrial fibrillation (ICD-10 - I48.0) This patient is in NSR or rate controlled. This patient is anticoagulated to prevent thromboembolic events. They are maintaining regular scheduled appts with their set off blocker. Jul, Primary hypertension (ICD-10 - I10) This [...] labs due next month, will await results [facility] Other 02-16-2023 Evaluation note* Encounter Date Diagnosis Assessment Notes Treatment Notes Treatment Clinical Notes Jun, Strain of biceps tendon, left, [...] are maintaining regular scheduled appts with their set off blocker. 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 Work Phone: Evaluation note* Diagnosis Kidney stone- Primary Calculus of kidney [facility] Diagnosis PAF (paroxysmal atrial fibrillation) ([facility])- Primary Atrial fibrillation Presence of biventricular cardiac pacemaker [facility]* Diagnosis Presence of biventricular cardiac pacemaker- Medtronic- Primary documented in this encounter [facility] SystemHistory general Narrative - Reported* Type Description Date Medical History Hypertension Medical History Contact dermatitis of right eyel id Medical History Dry eye syndrome, bilateral Medical History History of nephrolithiasis Medical History Acute bilateral low back pain wi thout sciatica Medical History Acute paronychia of finger, [...] 2019 Surgical History UPPR GI ENDOSCOPY, DIAGNOSIS Surgical History INSERTION OF HEART PACEMAKER Hospitalization History see above [facility] Other InstructionsNot on filedocumented in this encounter [facility] SystemInstructionsNot on filedocumented in this encounter [employer] SystemInstructionsNot on filedocumented in this encounter [employer] SystemInstructionsNot on filedocumented in this encounter [facility] Summary Purpose Family History No Family History Records Found Relationship Condition Age at Onset Recorded Date/T woo father Myocardial infarction Unknown Unknown natural son Myocardial infarction Unknown Not Specified Unknown Relationship Condition Age at Onset Recorded Date/T woo father Myocardial infarction Unknown Unknown son Myocardial infarction Unknown mother Unknown Advance Directives No Advanced Directives Records Found Advance Directive Response Recorded Date/ Time Advance Directives No March 11:45am Documents on File Type Date Recorded Patient Chief Quality Officer Expl anation Durable Power of Real Estate Acquisition Analyst 03/28/2020 9:52 AM [facility] Living Will 03/28/2020 9:50 AM [facility] LIVING WILL DECLARATION SIGNED 03/27/2020 Documents on File Type Date Recorded Patient Chief Quality Officer Expl anation Durable Power of Real Estate Acquisition Analyst 03/28/2020 9:52 AM [facility]PO[facility] Living Will 03/28/2020 9:50 AM [facility] LIVING WILL DECLARATION SIGNED 03/27/2020 Chief Complaint and Reason for Visit Chief Complaint Bump On Bridge Of No se 6 month follow up Reason for Visit Atrial fibrillation Carotid stenosis Elevated cholesterol Heart failure with improved ejection fraction (HFimpEF) Lumbar spondylosis Nonischemic cardiomyopathy Chief Complaint 6 month follow up Amb Documentation tb follow up Reason for Visit Atrial fibrillation Carotid stenosis Elevated cholesterol Heart failure with improved ejection fraction (HFimpEF) Lumbar spondylosis Nonischemic cardiomyopathy Atrial fibrillation Colitis presumed to be due to infection Heart failure with improved ejection fraction (HFimpEF) Hypertension Nonischemic cardiomyopathy Sepsis Syncope Chief Complaint wellness Reason for Visit Atrial fibrillation Carotid stenosis Elevated cholesterol Heart failure with improved ejection fraction (HFimpEF) Lumbar spondylosis Medicare annual wellness visit, subsequent Nonischemic cardiomyopathy Additional Source Comments (unrecognized sect ion and content) No Status Records FoundNo Status Records FoundNo Status Records FoundNo Status Records Found INFORMATION SOURCE (unrecogn ized section and content) DATE CREATED AUTHOR 06/03/2021 [facility] DATE CREATED AUTHOR AUTHOR'S ORGANIZ ATION 06/27/2023 [facility] EPIC DATE CREATED AUTHOR AUTHOR'S ORGANIZ ATION 02/16/2024 [facility] DATE CREATED AUTHOR AUTHOR'S ORGANIZ ATION 03/07/2024 [facility] REASON FOR VISIT (unrecogniz ed section and content) Reason Comments Follow-up 1yr w / KUB Reason Comments Follow-up ov/pm 11 mo no testi ng req graton office Device Check Atrial Fibrillation Dizziness Reason Comments Device Check Care Teams (unrecognized sec tion and content) Team Status: Active Member Role Status Dates Jaison Purvis DO Primary Care Provider Active Team Status: Inactive Member Role Status Dates Jaison Purvis DO Attending Provider Active Sta rt: May 18, 2023 End: May 18, 2023 Team Status: Inactive Member Role Status Dates Jaison Purvis DO Primary Care Provide r, Attending Provider Active Start: August 02, 2023 End: August 02, 2023 Team Status: Active Member Role Status Dates Jaison Purvis DO Primary Care Provider Active Start: September 20, 2023 Nadia Salvador PA-C Attending Provider Active Start: September 20, 2023 Team Status: Active Member Role Status Dates Jaison Purvis DO Primary Care Provider Active Start: September 21, 2023 Greyson Gandara MD Attending Provider Active Star t: September 21, 2023 Team Status: Active Member Role Status Dates Jaison Purvis DO Primary Care Provide r, Attending Provider Active Start: September 22, 2023 Team Status: Active Member Role Status Dates Jaison Purvis DO Primary Care Provider Active Start: September 23, 2023 SHELLI Xie Attending Provider Active St art: September 23, 2023 Team Status: Inactive Member Role Status Dates Jaison Purvis DO Primary Care Provide r, Attending Provider Active Start: September 26, 2023 End: September 26, 2023 Team Status: Inactive Member Role Status Dates Jaison Purvis DO Primary Care Provide r, Attending Provider Active Start: February 03, 2024 End: February 03, 2024 Technical Operations Manager Relationship Specialty Start Date End Date Jaison Purvis DO [address] [place] [id number] PCP - General Internal Medicine 10/12/22 Technical Operations Manager Relationship Specialty Start Date End Date Jaison Purvis DO [address] [place] [id number] PCP - General Internal Medicine 10/12/22 Technical Operations Manager Relationship Specialty Start Date End Date Jaison Purvis DO [address] [place] [phone] PCP - General Internal Medicine 10/12/22 Technical Operations Manager Relationship Specialty Start Date End Date Jaison Purvis DO [address] [place] [phone] PCP - General Internal Medicine 10/12/22 Goals (unrecognized section and content) Goals may [...] BE BASED ON THE PRIMARY CLINICAL RECORDS. [facility]. provides no warranty or guarantee of the accuracy or completeness of information in this document.
[2024-03-14 10:33] LABS: Basophils Percent Auto 0.7 % (0.2-2.0); Eosinophils Absolute Auto 0.1 10^3/uL (0.0-0.7); Eosinophils Percent Auto 1.1 % (0.9-7.0); Hematocrit 38.2 % (42.0-54.0); Hemoglobin 12.5 g/dL (14.0-18.0); Immature Granulocytes Abs Auto 0.01 10^3/uL (0.00-0.03); Immature Granulocytes Pct Auto 0.2 % (0.0-0.5); Lymphocytes Absolute Auto 1.3 10^3/uL (1.2-3.8); Lymphocytes Percent Auto 23.4 % (20.5-60.0); Mean Corpuscular HGB Conc 32.7 g/dL (29.9-35.2); Mean Corpuscular Hemoglobin 32.4 pg (25.9-34.0); Monocytes Absolute Auto 0.6 10^3/uL (0.3-0.8); Monocytes Percent Auto 10.2 % (1.7-12.0); Neutrophils Absolute Auto 3.7 10^3/uL (1.4-6.5); Neutrophils Percent Auto 64.4 % (43.0-75.0); Platelet Count 224 10^3/uL (150-450); Red Blood Count 3.86 10^6/uL (4.70-6.10); Red Cell Distribution Width 13.2 % (11.0-15.0); White Blood Count 5.7 10^3/uL (4.0-11.0)
[2024-03-14 10:54] LABS: Alanine Aminotransferase 19 U/L (16-63); Albumin Globulin Ratio 0.8; Albumin Level 3.3 g/dL (3.4-5.0); Alkaline Phosphatase 94 U/L (46-116); Anion Gap 12.1; Aspartate Amino Transferase 16 U/L (15-37); BUN Creatinine Ratio 9.8; Bilirubin Total 1.1 mg/dL (0.2-1.0); Calcium 8.5 mg/dL (8.5-10.1); Carbon Dioxide 30.3 mmol/L (21.0-32.0); Chloride 103 mmol/L (98-107); Estimated GFR (African America >60 (>=60 mL/min/1.73m^2); Estimated GFR (Non-African Ame 51 (>=60 mL/min/1.73m^2); Globulin 3.9 g/dL; Glucose 95 mg/dL (74-106); Potassium 3.4 mmol/L (3.5-5.1); Sodium 142 mmol/L (136-145); Total Protein 7.2 g/dL (6.4-8.2)
[2024-03-14 11:04] LABS: Percent Iron Saturation 19.8 %
[2024-03-15 10:13] LABS: Vitamin B12 277 pg/mL (232-1245)
== END 2024-03-14 09:54 | disposition home or self-care (01) ==
LOC: LAB 09:56
PROVIDERS: PCP Internal Medicine; Visit Provider Internal Medicine
DX: R55 Syncope and collapse (principal); I50.32 Chronic diastolic (congestive) heart failure; I48.0 Paroxysmal atrial fibrillation; Z79.01 Long term (current) use of anticoagulants
CPT/HCPCS: 36415; 80053; 82607; 82728; 82746; 83540; 83550; 84443; 85025

== ENCOUNTER 2024-09-08 19:28 | Emergency (ER) | payer MEDICARE, OTHER, SELFPAY ==
[2024-09-08] VITALS (25 sets, daily range): BP systolic 126–167; BP diastolic 64–79; PULSE 64–76; TEMP 36.6; O2SAT 95; BMI 26.3
--- NOTE | 2024-09-08 19:55 | ECG_ITS ---
[facility] Test Date: 2024-09-08 Pat Name: ELISABETH BO Department: Room: - Gender: Male Dry Box Operator: : 1935 Requested By: [id number] Order Number: [id number] Reading MD: YASMINE ABERNATHY M.D. Measurements Intervals [place] Rate: 76 P: -[id number] [place]: -[id number] QRS: -86 QRSD: 152 T: 94 QT: 450 QTc: 480 Interpretive Statements [id number] Electronic ventricular pacemaker Abnormal ECG Compared to ECG 09/20/2023 18:19:48 No significant changes Electronically Signed On 09-09-2024 7:38:12 EDT by YASMINE ABERNATHY M.D.
--- NOTE | 2024-09-08 20:05 | PC.NURSE ---
PT STATES POSTERIOR LOWER HEADACHE THAT STARTED THIS MORNING. PT STATES ELEVATED BP AT HOME. PT ON ELIQUIS FIR AFIB AND HAS PACEMAKER.
--- NOTE | 2024-09-08 20:28 | ED.GENADUL1 ---
HPI HPI - General Adult General Chief complaint: Headache Stated complaint: HEADACHE, BP Time Seen by Provider: 09/08/24 19:54 Source: patient Mode of arrival: walk-in Limitations: no limitations History of Present Illness HPI narrative: The patient is a aguilar 88-year-old male with a history of hypertension who presents to the emergency department for headache, high blood pressure, and an uneasy stomach. He states his symptoms started around noon. He had a gradual onset of a headache in the occiput of his head that peaked at about an 8 out of 10 it was dull and achy in sensation. Nothing in particular made it worse or better. It lingered throughout the day and about 6 PM he took Tylenol 1000 mg. He states his headache currently is about a 6 out of 10 at this time. In addition, the patient is having some uneasiness in his stomach. He states he feels nauseous like he may vomit and he feels like things are churning in his stomach and they just generally does not feel well. He denies any diarrhea or constipation. He denies any fever or chills. No sick contacts or recent travel. He has no blurry vision, double vision, loss of vision. He has no chest pain or shortness of breath. Patient states that the headache does not radiate or move anywhere. He has no neck pain or stiffness that is new or worsened from his chronic arthritic pain. Patient states that also his blood pressure has been very elevated. He states his systolic was 180 at home. That is highly unusual for him as the patient states his blood pressure systolic is usually 125/50. He takes lisinopril 5 mg a day and was compliant with taking that medication. Related Data Home Medications ?Medication ?Instructions ?Recorded ?Confirmed apixaban 5 mg tablet (Eliquis) 5 mg PO BID 01/19/23 09/08/24 polysaccharide iron complex 150 mg 150 mg PO DAILY 01/19/23 09/20/23 iron capsule (iFerex 150) atorvastatin 10 mg tablet 10 mg PO DAILY 09/20/23 09/08/24 diltiazem HCl 180 mg 180 mg PO DAILY 09/20/23 09/08/24 capsule,extended release 24 hr (Cardizem CD) flecainide 100 mg tablet 100 mg PO Q12H 09/20/23 09/08/24 omeprazole 20 mg capsule,delayed 20 mg PO DAILY 09/20/23 09/08/24 release polysaccharide iron complex 150 mg 150 mg PO DAILY 09/20/23 09/20/23 iron capsule (Ferrex) furosemide 20 mg tablet (Lasix) 12.5 mg PO DAILY 09/08/24 09/08/24 lisinopril 10 mg tablet 5 mg PO DAILY 09/08/24 09/08/24 Previous Rx's ?Medication ?Instructions ?Recorded ciprofloxacin HCl 500 mg tablet 500 mg PO BID #14 tabs 09/22/23 metronidazole 500 mg tablet 500 mg PO Q8H 7 days #21 tabs 09/22/23 Allergies Allergy/AdvReac Type Severity Reaction Status Date / Time No Known Drug Allergies Allergy Verified 09/08/24 19:42 Opioid HPI Opioid Management Most Recent Opioid Data: Last Pain Scale 5 09/22/23, 09:58 Last ORT Total Score 0 09/20/23, 21:49 Last ORT Risk Category Low Risk 09/20/23, 21:49 Review of Systems ROS Narrative 10 Systems were reviewed, and unless noted in the HPI, all other systems are reviewed, unremarkable, or noncontributory. [facility] Medical History Colitis ?K52.9 - Noninfective gastroenteritis and colitis, unspecified (ICD-10) CKD stage 3a, GFR 45-59 ml/min ?N18.31 - Chronic kidney disease, stage 3a (ICD-10) Paroxysmal atrial fibrillation ?I48.0 - Paroxysmal atrial fibrillation (ICD-10) Benign essential hypertension ?I10 - Essential (primary) hypertension (ICD-10) Nonischemic cardiomyopathy ?I42.8 - Other cardiomyopathies (ICD-10) Bilateral carotid artery stenosis ?I65.23 - Occlusion and stenosis of bilateral carotid arteries (ICD-10) Finger laceration ?S61.219A - Laceration without foreign body of unspecified finger without damage to nail, initial encounter (ICD-10) Colonoscopy planned 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, unspecified wrist (ICD-10) Cholecystectomy planned Knee arthropathy ?M17.10 - Unilateral primary osteoarthritis, unspecified knee (ICD-10) Pacemaker ?Z95.0 - Presence of cardiac pacemaker (ICD-10) Afib ?I48.91 - Unspecified atrial fibrillation (ICD-10) Surgical History H/O esophagogastroduodenoscopy ?Z98.890 - Other specified postprocedural states (ICD-10) Previous back surgery ?Z98.890 - Other specified postprocedural states (ICD-10) H/O transurethral resection of bladder tumor (TURBT) ?Z98.890 - Other specified postprocedural states (ICD-10) ?Z86.03 - Personal history of neoplasm of uncertain behavior (ICD-10) Family History Father Family history of CHF (congestive heart failure) Family history of COPD (chronic obstructive pulmonary disease) Family history of myocardial infarction Mother Family history of hypertension Social History Within the past year, how often did you have a drink containing alcohol: never Within the past year, how often did you have six or more drinks on one occasion: never Score interpretation: A score less than 4 is consistent with normal alcohol consumption. 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 Highest level of school completed/degree received: 6th grade Are you now , , , , never or living with a partner: In a typical week, how many times do you talk on the telephone with family, friends, or neighbors: 3 or more times per week How often do you get together with friends or relatives: 3 or more times per week How often do you attend sikh or synagogue services: 4 or more times per year Do you belong to any clubs or organizations such as sikh groups unions, fraternal or athletic groups, or school groups: no Total score: 2 Score interpretation: A score of greater than or equal to 2 indicates the lowest level of social isolation. Little interest or pleasure in doing things: not at all Feeling down, depressed, or hopeless: not at all Feel stressed/tense/nervous/anxious/difficulty sleeping: not at all Due to disability, difficulty making decisions: No Do you think of yourself as: straight/heterosexual Gender Identity: male Exam Narrative Exam Narrative: Prior to examining the patient, I have washed with hospital approved and provided Antiseptic [employer] [facility] Attendant and have also applied gloves.? Prior to touching the patient, I asked for consent to examine the patient.? General: Alert and oriented, well nourished, mild distress. Eye: PERRL, EOMI, normal conjunctiva. HENT: Normocephalic, normal hearing, moist oral mucosa, no scleral icterus, no sinus tenderness. Neck: Supple, non-tender, no carotid bruits, no JVD, no lymphadenopathy. Lungs: Clear to auscultation and percussion, non-labored respiration. Heart: Normal rate, regular rhythm, no murmur, gallop or edema. Abdomen: Soft, non-tender, non-distended, normal bowel sounds, no masses. Musculoskeletal: Normal range of motion and strength, no tenderness or swelling. Skin: Skin is warm, dry and pink, no rashes or lesions. Neurologic: Awake, alert, and oriented X3, CN II-XII intact. Psychiatric: Cooperative, appropriate mood and affect.? Following the conclusion of the examination, I have washed my hands thoroughly after removing examination gloves. Constitutional Vital Signs, click to edit/add: Last Vital Signs Temp 98 F 09/08/24 19:39 Pulse 69 09/08/24 23:20 Resp 24 H 09/08/24 23:20 BP 133/70 09/08/24 23:00 Pulse Ox 95 09/08/24 19:39 O2 Del Method Room Air 09/08/24 19:39 Course Course Hospital Course: In summary, the gentleman presents to the emergency department for concerns of a headache. This is highly atypical for the patient. In addition they have noticed his blood pressure was markedly elevated. Patient states he takes his blood pressure daily and his blood systolic blood pressure usually is between 125 and 130. Patient was given an additional dose of his lisinopril to help manage his blood pressure. This was successful. In addition we managed his pain with his headache and got a CT scan to prove that he did not have any mass, bleed, shift. He felt very comfortable after this happened pressure went down. I did disclose that it was difficult for me to explain whether or not the pain from the headache because his blood pressure elevated the blood pressure caused the headache. However I have told the patient that he may go up on his lisinopril. He is opting to wait till he talks to his doctor. Apparently his doctor just a couple months ago took him down on his lisinopril because he was starting to feel dizzy. Going down on lisinopril did improve those symptoms. He will talk to his physician on Tuesday morning. Patient is ambulatory has good family support and I feel comfortable with this plan. Vital Signs Vital signs: Vital Signs Temperature 98 F 09/08/24 19:39 Pulse Rate 75 09/08/24 19:39 Respiratory Rate 20 09/08/24 19:39 Blood Pressure 160/70 H 09/08/24 19:39 Pulse Oximetry 95 09/08/24 19:39 Oxygen Delivery Method Room Air 09/08/24 19:39 Temperature 98 F 09/08/24 19:39 Pulse Rate 69 09/08/24 23:20 Respiratory Rate 24 H 09/08/24 23:20 Blood Pressure 133/70 09/08/24 23:00 Pulse Oximetry 95 09/08/24 19:39 Oxygen Delivery Method Room Air 09/08/24 19:39 Medical Decision Making Medical Records Medical records reviewed: Yes I reviewed the patient's medical records Lab Data Lab results reviewed: Yes I reviewed the patient's lab results Lab results narrative: Patient CBC has no evidence of anemia or leukocytosis. Basic metabolic panel was normal for any electrolyte or kidney dysfunction. Labs: Lab Results 09/08/24 Range/Units 19:58 WBC 5.2 (4.0-11.0) 10^3/uL RBC 4.11 L (4.70-6.10) 10^6/uL Hgb 13.2 L (14.0-18.0) g/dL Hct 39.3 L (42.0-54.0) % MCV 95.6 H (80.0-94.0) fL MCH 32.1 (25.9-34.0) pg MCHC 33.6 (29.9-35.2) g/dL RDW 13.4 (11.0-15.0) % Plt Count 239 (150-450) 10^3/uL MPV 10.5 (9.5-13.5) fL Neut % (Auto) 45.9 (43.0-75.0) % Lymph % (Auto) 35.9 (20.5-60.0) % Rusk % (Auto) 13.8 H (1.7-12.0) % Eos % (Auto) 3.1 (0.9-7.0) % Baso % (Auto) 1.1 (0.2-2.0) % Neut # (Auto) 2.4 (1.4-6.5) 10^3/uL Lymph # (Auto) 1.9 (1.2-3.8) 10^3/uL Rusk # (Auto) 0.7 (0.3-0.8) 10^3/uL Eos # (Auto) 0.2 (0.0-0.7) 10^3/uL Baso # (Auto) 0.1 (0.0-0.1) 10^3/uL Abs Immat Gran (auto) 0.01 (0.00-0.03) 10^3/uL Imm/Tot Granulo (auto) 0.2 (0.0-0.5) % Sodium 140 (136-145) mmol/L Potassium 3.8 (3.5-5.1) mmol/L Chloride 101 (98-107) mmol/L Carbon Dioxide 30.9 (21.0-32.0) mmol/L Anion Gap 11.9 BUN 18.0 (7.0-18.0) mg/dL Creatinine 1.20 (0.70-1.30) mg/dL Est GFR ( Amer) >60 (>=60 mL/min/1.73m^2) Est GFR (Non-Af Amer) 57 L (>=60 mL/min/1.73m^2) BUN/Creatinine Ratio 15.0 Glucose 107 H (74-106) mg/dL Calcium 8.7 (8.5-10.1) mg/dL Imaging Data CT scan - head: Attestation: I have reviewed the pertinent imaging results. Radiologist's impression: No acute intracranial hemorrhage as interpreted by board-certified radiologist. ECG Data Attestation: I personally reviewed and interpreted this ECG as follows: Interpretation: Twelve-lead EKG: Twelve-lead EKG reveals a paced rhythm with a heart rate of 76. QRS duration is prolonged. No evidence of ST segment elevation or depression shows infarction or ischemia. Normal morphology for paced rhythm. Discharge Plan Discharge Chief Complaint: Headache Clinical Impression: Headache, Hypertension, uncontrolled Patient Disposition: Home, Self-Care Time of Disposition Decision: 23:17 Condition: Good Mode of Transportation: Private Vehicle Prescriptions / Home Meds: No Action polysaccharide iron complex [iFerex 150] 150 mg iron capsule 150 mg PO DAILY Eliquis 5 mg tablet 5 mg PO BID atorvastatin 10 mg tablet 10 mg PO DAILY diltiazem HCl [Cardizem CD] 180 mg capsule,extended release 24hr 180 mg PO DAILY omeprazole 20 mg capsule,delayed release(DR/EC) 20 mg PO DAILY polysaccharide iron complex [Ferrex 150] 150 mg iron capsule 150 mg PO DAILY flecainide 100 mg tablet 100 mg PO Q12H ciprofloxacin HCl 500 mg tablet 500 mg PO BID Qty: 14 0RF metronidazole 500 mg tablet 500 mg PO Q8H 7 Days Qty: 21 0RF lisinopril 10 mg tablet 5 mg PO DAILY furosemide [Lasix] 20 mg tablet 12.5 mg PO DAILY Rx Instructions: takes every other day Print Language: [place] Citizen Instructions: Acute Headache (ED), Hypertension (ED) Additional Instructions: Thank you for trusting me with your care today. If your blood pressure goes over 140 systolic I would want you to take the second dose of lisinopril. Referrals: Jaison Purvis DO [Primary Care Provider, Internal Medicine] - 1 week Discharge Date/Time: 09/08/24 23:32
[2024-09-08 20:37] LABS: Basophils Absolute Auto 0.1 10^3/uL (0.0-0.1); Basophils Percent Auto 1.1 % (0.2-2.0); Eosinophils Absolute Auto 0.2 10^3/uL (0.0-0.7); Eosinophils Percent Auto 3.1 % (0.9-7.0); Hematocrit 39.3 % (42.0-54.0); Hemoglobin 13.2 g/dL (14.0-18.0); Immature Granulocytes Abs Auto 0.01 10^3/uL (0.00-0.03); Immature Granulocytes Pct Auto 0.2 % (0.0-0.5); Lymphocytes Absolute Auto 1.9 10^3/uL (1.2-3.8); Lymphocytes Percent Auto 35.9 % (20.5-60.0); Mean Corpuscular HGB Conc 33.6 g/dL (29.9-35.2); Mean Corpuscular Hemoglobin 32.1 pg (25.9-34.0); Mean Corpuscular Volume 95.6 fL (80.0-94.0); Mean Platelet Volume 10.5 fL (9.5-13.5); Monocytes Absolute Auto 0.7 10^3/uL (0.3-0.8); Monocytes Percent Auto 13.8 % (1.7-12.0); Neutrophils Absolute Auto 2.4 10^3/uL (1.4-6.5); Neutrophils Percent Auto 45.9 % (43.0-75.0); Platelet Count 239 10^3/uL (150-450); Red Blood Count 4.11 10^6/uL (4.70-6.10); Red Cell Distribution Width 13.4 % (11.0-15.0); White Blood Count 5.2 10^3/uL (4.0-11.0)
[2024-09-08] MEDS: LISINOPRIL 10 MG TABLET PO (20:38)
[2024-09-08 20:42] LABS: Anion Gap 11.9; Calcium 8.7 mg/dL (8.5-10.1); Carbon Dioxide 30.9 mmol/L (21.0-32.0); Chloride 101 mmol/L (98-107); Estimated GFR (African America >60 (>=60 mL/min/1.73m^2); Estimated GFR (Non-African Ame 57 (>=60 mL/min/1.73m^2); Glucose 107 mg/dL (74-106); Potassium 3.8 mmol/L (3.5-5.1); Sodium 140 mmol/L (136-145)
== END 2024-09-08 23:32 | disposition home or self-care (01) ==
PROVIDERS: Emergency Provider Emergency Medicine; PCP Internal Medicine
DX: R51.9 Headache, unspecified (principal); I10 Essential (primary) hypertension; Z79.899 Other long term (current) drug therapy; Z87.891 Personal history of nicotine dependence
CPT/HCPCS: 36415; 70450; 80048; 85025; 93005; 99285

== ENCOUNTER 2025-05-03 08:37 | Outpatient (OUT) | payer MEDICARE, OTHER, SELFPAY ==
--- OUTSIDE RECORDS SUMMARY | 2025-05-03 08:39 | XMS_ITS | Clinical Summary ---
Author Organization [facility] Address [address] [place] [address], [address] [place] [address] Care Team Providers Care Table Saw Operator Name Role Phone Unavailable Primary Care Provider Unavailabl e Social History Tobacco UseTypesPacks/DayYears UsedDateSmoking Tobacco: Never AssessedSex and Gender InformationValueDate RecordedSex Assigned at BirthNot on fileLegal Sex Male06/07/2012 4:34 PM ESTGender IdentityNot on fileSexual OrientationNot on file Plan of Treatment Not on file
--- OUTSIDE RECORDS SUMMARY | 2025-05-03 08:39 | XMS_ITS | Clinical Summary ---
Author Organization [facility] Address [address] [place] [address] Care Team Providers Care Improvement Lead Name Role Phone Unavailable Primary Care Provider Unavailabl e Allergies Active AllergyReactionsCriticalityNoted DateCommentsCiprofloxacinUnknown 02/03/2024 Onset Date: 09/18/2014 Other Reaction(s): Unknown Reaction IemtxadkdrzTprakTuxs27/09/2017 Other reaction(s): Multaq Loss of appetite, weight loss MfhmhnoxWswzg25/09/2017 Other reaction(s): Intolerance-unknown PenicillinsRash,FfnklfzMjj76/09/2017 Other reaction(s): Intolerance-unknown Sulfa AntibioticsGI intolerance,BuwwiofNmo64/09/2017 Other reaction(s): Sulfa Brtbxt0402/15/2023 Medications MedicationSigDispense QuantityRefillsLast FilledStart DateEnd DateStatus ipratropium (Atrovent) 0.06 % nasal spray 1 spray every 12 (twelve) hoursActive lisinopril-hydroCHLOROthiazide 10-12.5 MG tablet TAKE 1 TABLET BY MOUTH EVERY DAY WITH FOOD08/16/2022ctive omeprazole (PriLOSEC) [address] capsule Take 20 mg by mouth in the morning.09/06/2022ctive IFerex 150 150 MG capsule Take 150 mg by mouth every other day05/07/2023ctive propafenone (Rythmol) 150 MG tablet every 12 (twelve) hoursActive Ascorbic Acid (vitamin C) 250 MG tablet Take 250 mg by mouth in the morning.Active atorvastatin (Lipitor) 10 MG tablet Take 10 mg by mouth in the morning.Active Bilberry 40 MG capsule Take by mouthActive Cranberry 50 MG chewable tablet ChewActive dilTIAZem XR (Dilacor XR) 180 MG 24 hr capsule Take 180 mg by mouth in the morning.Active apixaban (Eliquis) 5 MG tablet Take 5 mg by mouth in the morning and 5 mg before bedtime.Active triamcinolone (Kenalog) 0.1 % cream Indications:Other atopic dermatitisApply to affected areas, up to twice a day when flared, do not use one the face, groin, or underarms, 30 day supply 454 g 4Active Active Problems No known active problems Encounters DateTypeDepartmentCare HrjbFfiqsyvahcj58/10/2025 8:30 AM ESTOffice Visit [facility] [address] [place] [address] Nadia Fisher, [facility] Actinic cijalifja64/10/2025amboo flowsheet [facility] [address] [place] [address] Nadia Fisher [facility] 03/18/2025Travelfrom Last 3 Months Family History Medical HistoryRelationNameCommentsHeart diseaseFatherCancerSiblingHeart disease SiblingLiver cancerSiblingLung cancerSiblingStrokeSiblingRelationNameStatus CommentsFatherDeceasedSibling Social History Tobacco UseTypesPacks/DayYears UsedDateSmoking Tobacco: FormerCigarettes Smokeless Tobacco: NeverAlcohol UseStandard Drinks/WeekCommentsNever0 (1 standard drink = 0.6 oz pure alcohol)Sex and Gender InformationValueDate RecordedSex Assigned at BirthNot on fileLegal WzvIxyr6707/21/2022 6:52 PM EDT Gender IdentityNot on fileSexual OrientationNot on file Last Filed Vital Signs Vital SignReadingTime TakenCommentsBlood Jeasqerk028/72006/11/2020 12:00 PM EST Pulse--Temperature--Respiratory Rate--Oxygen Saturation--Inhaled Oxygen Concentration--Afeoqq14.9 kg (163 lb)06/11/2020 12:00 PM JVCVzrrxg726.7 cm (5' 8 )06/11/2020 12:00 PM ESTBody Mass Index24.78006/11/2020 12:00 PM EST Plan of Treatment Health MaintenanceDue DateLast DoneCommentsPneumococcal Vaccine: 65+ Years Hssnqyqwc59/23/2022, 02/20/2016, 01/21/2016, Additional history existsInfluenza KcmhdftIsbgfauva67/29/2025, 02/03/2024, 02/01/2023, Additional history exists Procedures Procedure NamePriorityDate/TimeAssociated DiagnosisCommentsCRYOTHERAPY SKIN EZSWPOImwxkze73/10/2025 8:28 AM EST Actinic keratosis from Last 3 Months Results * Cryotherapy, skin lesion (03/18/2025 8:28 AM EST) Narrative Authorizing ProviderResult TypeResult StatusNatalie A Felter SHEETING PULLER-CNPDERM PROCEDURE ORDERABLESFinal Result from Last 3 Months Insurance
--- OUTSIDE RECORDS SUMMARY | 2025-05-03 08:39 | XMS_ITS | Clinical Summary ---
Author Organization [facility] Address [address] [place] [address] Phone Care Team Providers Care Rampman Name Role Phone Jaison Purvis DO Primary Care Provider [phone] Social History Tobacco UseTypesPacks/DayYears UsedDateSmoking Tobacco: Never AssessedSex and Gender InformationValueDate RecordedSex Assigned at BirthNot on fileLegal Sex Male04/02/2022 9:35 PM ESTGender IdentityNot on fileSexual OrientationNot on file Plan of Treatment Not on file Care Teams Team MemberRelationshipSpecialtyStart DateEnd Date Jaison Purvis DO PCP - General06/20/14
[2025-05-03 08:58] LABS: Hematocrit 34.0 % (42.0-54.0); Hemoglobin 10.8 g/dL (14.0-18.0); Immature Granulocytes Abs Auto 0.02 10^3/uL (0.00-0.03); Immature Granulocytes Pct Auto 0.5 % (0.0-0.5); Lymphocytes Absolute Auto 1.2 10^3/uL (1.2-3.8); Mean Corpuscular HGB Conc 31.8 g/dL (29.9-35.2); Mean Corpuscular Hemoglobin 28.6 pg (25.9-34.0); Mean Corpuscular Volume 90.2 fL (80.0-94.0); Platelet Count 272 10^3/uL (150-450); Red Blood Count 3.77 10^6/uL (4.70-6.10); Reticulocyte Pct Auto 0.90 % (0.60-3.10); White Blood Count 3.8 10^3/uL (4.0-11.0)
[2025-05-03 10:04] LABS: Iron 30.0 ug/dL (65.0-175.0); Percent Iron Saturation 7.2 %; Total Iron Binding Capacity 416.0 ug/dL (250.0-450.0)
[2025-05-03 10:21] LABS: Ferritin 16.0 ng/mL (26.0-388.0); Folate 12.40 ng/mL (8.60-58.90)
[2025-05-04 04:07] LABS: Vitamin B12 373 pg/mL (232-1245)
== END 2025-05-03 08:38 | disposition home or self-care (01) ==
LOC: LAB 08:37
PROVIDERS: PCP Internal Medicine; Visit Provider Internal Medicine
DX: D64.9 Anemia, unspecified (principal)
CPT/HCPCS: 36415; 82607; 82728; 82746; 83540; 83550; 85025; 85045